=== PATIENT | female | born 2000 | race Caucasian/White ===

== ENCOUNTER 2023-08-25 19:10 | Outpatient (OUT) | payer OTHER, SELFPAY ==
[2023-08-31 11:09] LABS: Age Gdln ACOG Testing Note (.); IGP, rfx Aptima HPV ASCU Note (.)
== END 2023-08-25 19:11 | disposition home or self-care (01) ==
PROVIDERS: Visit Provider Obstetrics & Gynecology
DX: Z01.419 Encounter for gynecological examination (general) (routine) without abnormal findings (principal)
CPT/HCPCS: G0145

== ENCOUNTER 2024-08-29 18:22 | Outpatient (REF) | payer OTHER, SELFPAY | END 2024-08-29 18:23 | disposition home or self-care (01) | LOC: LAB 18:22 | PROVIDERS: Visit Provider Obstetrics & Gynecology | DX: Z01.419 Encounter for gynecological examination (general) (routine) without abnormal findings (principal) | CPT/HCPCS: 88175 ==

== ENCOUNTER 2024-12-10 10:01 | Outpatient (OUT) | payer OTHER, SELFPAY ==
--- OUTSIDE RECORDS SUMMARY | 2023-10-12 11:30 | XMS_ITS ---
Author Organization The [facility] in [place] Address [address] [place] [address] Care Team Providers Care Scenic Artist Name Role Phone Len Jin Primary Care Provider ZACH JIN Unavailable [phone] REASON FOR VISIT ingrown armpit hair Encounters Encounter Location Date Provider Diagnosis [facility] [address] [facility] [place] [address] 10/12/2023 ZACH JIN Plan Of Treatment No Information Progress Notes * Jessica ORDAZ CDOB:2000 (24 yo F)Acc No.[id number]:10/12/2023 UNLOCKED PROGRESS NOTE Progress Note Patient: Jessica QUIÑONES Provider: Miles Jin M.D. :2000 A ge:23 Y S ex:Female Date:10/12/2023 Address:[address] [place] [address] [address] Pcp:Len Jin Subjective: * Chief Complaints: * 1 . Ingrown armpit hair. * Medical History: Objective: * Vitals: Assessment: Plan: * Treatment: * * Electronic signature of LEN JIN MD on 12/10/2024 at 10:06 AM EDT Sign off status: Pending Visit Status: C ANC (Cancelled) * Provider: Miles Jin M.D. Date: 0 10/12/2023 Generated for Shania perez/Ephraim/Lucysmitting on: 0 12/10/2024 10:06 AM EDT
--- OUTSIDE RECORDS SUMMARY | 2024-03-23 11:00 | XMS_ITS ---
Author Organization The [facility] in [place] Address [address] [place] [address] Care Team Providers Care Septic Tank Cleaner Name Role Phone Markel Harman Primary Care Provider Allergies No Known Allergies REASON FOR VISIT stomach bug- started thursday with diarrhea and vomiting, Better today just nausea and diarrhea Medications Medication SIG (Take, Route, Frequency, Duration) Notes Start Date End Date Status Hyoscyamine Sulfate 0.125 MG 1-2 tabs SL SL every 4 hrs PRN abd pain 03/23/2024 Active Ondansetron 4 MG 1 tablet on the tong ue and allow to dissolve Orally Once a day for 30 days 03/23/2024 Active Social History Tobacco Use: Social History Observation Description Date Details (start date - stop date) Never Smoker NA - NA Tobacco Control (Standard) Question Answer Notes Tobacco use: Nonsmoker AUDIT-C (Standard) Question Answer Notes Did you have a drink contain ing alcohol in the past year? Yes How often did you have six o r more drinks on one occasion in the past year? Less than monthly (1 point) How many drinks did you have on a typical day when you were drinking in the past year? 1 or 2 drinks (0 point) How often did you have a dri nk containing alcohol in the past year? Monthly or less (1 point) Points 2 Interpretation Negative Problems Problem Type SNOMED Code ICD Code Onset Dates Problem Status W/U Status Risk Notes Problem Gastroenteritis (96459649) Gastroenteritis (K52.9) Active confirmed Vital Signs Weight 122.4 lbs 03/23/2024 Height 65 in 03/23/2024 Blood pressure systolic 106 mm Hg 03/23/20 24 Blood pressure diastolic 80 mm Hg 024 BMI 20.37 kg/m2 03/23/2024 Encounters Encounter Location Date Provider Diagnosis [facility] [address] [place] [address] 03/23/2024 Markel Harman Gastroenteritis K52. 9 Assessments Encounter Date Diagnosis (ICD Code) Assessment Notes Treatment Notes Treatment Clinical Notes Section Notes 03/23/2024 Gastroenteritis (ICD-10 - K52.9) Plan Of Treatment Medication Medication Name Sig Start Date Stop Date Notes Hyoscyamine Sulfate 0.125 MG 1-2 tabs SL SL every 4 hrs PRN abd pain 03/23/2024 Ondansetron 4 MG 1 tablet on the tong ue and allow to dissolve Orally Once a day for 30 days 03/23/2024 Progress Notes * SUSHMAJessica CDOB:2000 (23 yo F)Acc No.[id number]:03/23/2024 Progress Note Patient: Jessica QUIÑONES Provider: Miles Harman ([facility])MD :2000 A ge:23 Y S ex:Female Date:03/23/2024 Address:[facility] [address], [place], [id number] Check In:02:56 PM ESTCheck O ut:03:32 PM EST Subjective: * Chief Complaints: * 1 . Stomach bug- started thursday with diarrhea and vomiting. 2. Better today just nausea and diarrhea. * HPI: D epression Screening: PHQ-2 (2015 Edition) L ittle interest or pleasure in doing things?�Not at all F eeling down, depressed, or hopeless? N ot at all T otal Score 0 3 days - gettis some worse - watery diarrhea -. * ROS: E ENT: hearing changes d enies. v isual changes d enies.�non-healing mouth sores d enies. s wollen glands or neck lumps d enies. h oarseness d enies. s ore throat d enies. d ifficulty swallowing d enies. n ose bleeds d enies. n hortencia congestion d enies. e ar ache d enies. e ar discharge�denies. r inging in ears d enies. l ight sensitivity d enies. e ye pain d enies. b lurring d enies. e ye irritation d enies. d ouble vision d enies.�vision loss d enies. G eneral/Constitutional: Sweats: D enies. F atigue d enies. S leep problems d enies. A norexia d enies. M alaise d enies. W eight loss d enies.�Fatigue or Weakness d enies. F ever or Chills d enies. C ardiovascular: Shortness of Breath w/lying flat d enies. L ightheadedness/dizziness d enies. C hest tightness/ heavy pressure d enies. S welling of legs, ankles, or feet d enies. W aking up with shortness of breath d enies. C hest pain denies. P alpitations d enies. W eight gain d enies. R espiratory: Chronic or frequent cough d enies. C oughing up blood�denies. D ifficulty breathing d enies. P roductive cough d enies. S noring�denies. S hortness of breath that awakens from sleep (PND) d enies. C hest pain d enies. S putum production d enies. W heezing d enies. M usculoskeletal: Joint pain d enies. J oint Fluid d enies. B ack pain d enies. K nee pain d enies. N bienvenido pain d enies. J oint Stiffness d enies. M uscle cramps d enies. W eakness of muscles d enies. A rthritis d enies. M uscle aches d enies. P ain in shoulder(s) d enies. S wollen joints d enies. * Active Problem List K52.9 Gastroenteritis Modified On:03/23/2024W/U Status:confirmed * Medical History: M edical History Verified. * Surgical History: D enies Past Surgical History. * Hospitalization/Major Diagno stic Procedure: D enies Past Hospitalization. * Family History: F ather: alive, kidney stones, diagnosed with Diabetes mellitus without mention of complication, type II or unspecified type, not stated as uncontrolled. M other: alive. B rother(s): alive. 1 brother(s) - healthy. . * Social History: T obacco Use: T obacco Control (Standard) T obacco use: N onsmoker D rug/Alcohol: A HARRIET-C (Standard) D id you have a drink containing alcohol in the past year? Y es H ow often did you have six or more drinks on one occasion in the past year? L ess than monthly (1 point) H ow many drinks did you have on a typical day when you were drinking in the past year? 1 or 2 drinks (0 point) H ow often did you have a drink containing alcohol in the past year? M onthly or less (1 point) P oints 2 I nterpretation N egative * Medications: D iscontinued Cipro(Ciprofloxacin HCl) 500 MG Tablet 1 tablet Orally every 12 hrs , Discontinued Doxycycline Monohydrate 100 MG Capsule 1 capsule Orally BID , Medication List reviewed and reconciled with the patient * Allergies: N .K.D.A. Objective: * Vitals: W t:122.4lbs, Ht: 65 in, BP:106/80mm Hg, BMI:20.37Index, Ht-cm: 165.1 cm, Wt-k.52 kg. * Examination: P hysical Exam: GENERAL: w ell developed, well nourished, in no acute distress. HEAD: n ormocephalic/atraumatic. EYES: p upils equal, round and reactive to light, conjunctivae and sclerae normal. EARS: n o deformity or lesion of external ear, canals and TM appear normal bilaterally, TM's intact, not inflamed with normal light reflex, hearing grossly normal to conversational speech. NOSE: n o deformity, discharge, inflammation, or lesions.� MOUTH: m ucous membranes moist, normal oropharynx and posterior pharynx without lesions or exudates, tongue normal, dentition normal. NECK: n bienvenido supple, no masses or palpable cervical nodes, trachea midline, thyroid without nodules, masses, tenderness, or enlargement. CHEST: n o chest wall deformity, no chest wall tenderness.� LUNGS: n ormal respiratory effort and clear to auscultation, no wheezes, rales, or rhonchi, good air exchange. CARDIO: r egular rate and rhythm, normal S1 and S2, nor murmur, rub, or gallop. PULSES: n ormal capillary refill. ABDOMEN: s oft, non-distended, non-tender, no masses. MUSCULOSKELETAL: n o deformity or scoliosis noted, normal range of motion, joints normal, no erythema, edema, effusion, or ecchymosis. EXTREMITY: n o clubbing, cyanosis, edema, or deformity with normal ROM in both upper and lower bilateral extremities. NEUROLOGIC: g rossly normal. SKIN: n o rashes, ulcerations, or suspicious lesions. LYMPH NODES: n o cervical adenopathy, nodes normal. MENTAL STATUS: a lert and oriented x3, normal mood and affect. Assessment: * Assessment: 1Rancho parkoenteritis - K52.9 (Primary) Plan: * Treatment: * * Sign off status: Completed Visit Status: C HK (Check Out) true * Provider: Miles Harman (TTC)MD Date: 1 Generated for Printi ng/Fayoditg/eTransmitting on: 0 12/10/2024 10:06 AM EDT History and Physical Notes * HPI (History of Present Illness) Category Sub-Category Detail Notes Category Not es Depression Screening PHQ-2 (2015 Edition) Little interest or pleasure in doing things?: Not at all 3 days - gettis some worse - watery diarrhea - Feeling down, depressed, or hopeless?: N ot at all Total Score: 0 Examination Category Sub-Category Detail Notes Category Not es Physical Exam GENERAL: well developed, well nourished, in no acute distress HEAD: normocephalic/atraum atic EYES: pupils equal, round and reactive to light, conjunctivae and sclerae normal EARS: no deformity or lesi on of external ear, canals and TM appear normal bilaterally, TM's intact, not inflamed with normal light reflex, hearing grossly normal to conversational speech NOSE: no deformity, discha rge, inflammation, or lesions MOUTH: mucous membranes altagracia st, normal oropharynx and posterior pharynx without lesions or exudates, tongue normal, dentition normal NECK: neck supple, no mass es or palpable cervical nodes, trachea midline, thyroid without nodules, masses, tenderness, or enlargement CHEST: no chest wall deform ity, no chest wall tenderness LUNGS: normal respiratory e ffort and clear to auscultation, no wheezes, rales, or rhonchi, good air exchange CARDIO: regular rate and rhy thm, normal S1 and S2, nor murmur, rub, or gallop PULSES: normal capillary ref ill ABDOMEN: soft, non-distended, non-tender, no masses RECTAL: MUSCULOSKELETAL: no deformity or scol iosis noted, normal range of motion, joints normal, no erythema, edema, effusion, or ecchymosis EXTREMITY: no clubbing, cyanosi s, edema, or deformity with normal ROM in both upper and lower bilateral extremities NEUROLOGIC: grossly normal SKIN: no rashes, ulceratio ns, or suspicious lesions LYMPH NODES: no cervical adenopat hy, nodes normal MENTAL STATUS: alert and oriented x 3, normal mood and affect
--- OUTSIDE RECORDS SUMMARY | 2024-09-23 04:07 | XMS_ITS ---
Author Organization The [facility] in [place] Address [address] [place] [address] Care Team Providers Care Court Supervisor Name Role Phone Markel Harman Primary Care Provider REASON FOR VISIT infected finger Medications Medication SIG (Take, Route, Frequency, Duration) Notes Start Date End Date Status Doxycycline Monohydrate 100 MG 1 capsule Orally bid for 10 days 09/23/2024 Active Cefdinir 300 MG 2 capsule Orally onc e a day for 10 days 09/23/2024 Active Encounters Encounter Location Date Provider Diagnosis [facility] [address] [place] [address] 09/23/2024 Markel Harman Plan Of Treatment Medication Medication Name Sig Start Date Stop Date Notes Doxycycline Monohydrate 100 MG 1 capsule Orally bid for 10 days 09/23/2024 Cefdinir 300 MG 2 capsule Orally onc e a day for 10 days 09/23/2024 Progress Notes * Jessica ORDAZ CDOB:2000 (23 yo F)Acc No.[id number]:09/23/2024 Patient: Brendon STROUDJessica :2000 A ge:23 Y S ex:Female Address:[address], [place] [address] * Refills Start Cefdinir Capsule, 300 MG, Orally, 20 Capsule, 2 capsule, once a day, 10 days, Refills=0 Start Doxycycline Monohydrate Capsule, 100 MG, Orally, 20 Capsule, 1 capsule, bid, 10 days, Refills=0 * true * Date: Generated for Shania perez/Ephraim/Nydiaitting on: 0 12/10/2024 10:07 AM EDT
--- OUTSIDE RECORDS SUMMARY | 2024-12-10 10:06 | XMS_ITS | Patient Health Record ---
Author Organization The [facility] in [place] Address [address] [place] [address] Care Team Providers Care Gas Reverser Name Role Phone Markel Harman Primary Care Provider [phone] Allergies No Known Allergies Reason For Referral No Information Medications Medication SIG (Take, Route, Frequency, Duration) Notes Start Date End Date Status Doxycycline Monohydrate 100 MG 1 capsule Orally bid for 10 days 09/23/2024 Active Cefdinir 300 MG 2 capsule Orally onc e a day for 10 days 09/23/2024 Active Hyoscyamine Sulfate 0.125 MG 1-2 tabs SL [...] Status W/U Status Risk Notes Problem Gastroenteritis (04262095) Gastroenteritis (K52.9) Active confirmed Vital Signs Blood pressure diastolic 80 mm Hg 03/23/2024 Height 65 in 03/23/2024 Blood pressure systolic 106 mm Hg 03/23/2024 Weight 122.4 lbs 03/23/2024 BMI 20.37 kg/m2 03/23/2024 Encounters Encounter Location Date Provider Diagnosis [facility] [address] [place] [address] 09/23/2024 Markel Harman [facility] [address] [place] [address] 03/23/2024 Markel Harman Gastroenteritis K52. 9 Assessments Encounter Date Diagnosis (ICD Code) Assessment Notes Treatment Notes Treatment Clinical Notes Section Notes 03/23/2024 Gastroenteritis (ICD-10 - K52.9) Plan Of Treatment No Information Insurance Providers Payer Name Payer Address Payer Phone Subscriber Number Group Number Insured Name Patient Relationship to Insured Coverage Start Date Coverage End Date MMO [address] [place], [place] [id number] Jessica Wilson Self - patient is the insured
--- OUTSIDE RECORDS SUMMARY | 2024-12-10 10:07 | XMS_ITS | Encounter Summary ---
Author Organization [facility] Address [address] [place] [address] Care Team Providers Care Cancer Program Director Name Role Phone Murphy Harman MD Primary Care Provider [phone] Encounter Details Date Type Department Care Team (Late st Contact Info) Description 09/06/2024 Orders Only [facility] [address] [place] [address] [facility] [address] [place] [address] Social History Tobacco Use Types Packs/Day Years Used Date Smoking Tobacco: Never Alcohol Use Standard Drinks/Week Comments Yes 0 (1 standard drink = 0.6 oz pur e alcohol) Comments No Sex and Gender Information Value Date Recorded Sex Assigned at Female 08/18/2023 8:42 AM EDT Legal Sex Female 7:31 PM EDT Gender Identity Female 08/18/2023 8:42 AM EDT Sexual Orientation Straight 08/18/2023 8: 42 AM EDT documented as of this encounter Plan of Treatment Upcoming Encounters Date Type Department Care Team (Late Contact Info) Description 12/20/2024 9:10 AM EDT Routine [facility] [address] [place] [id number] Garcia Rose DO [address] [place], [place] [address] [place] [address] 09/05/2025 8:30 AM EDT Office Visit [facility] [address] [place] [address] Garcia Rose DO [address] [place], [place] [id number] documented as of this encounter Procedures Procedure Name Priority Date/Time Associated Diagnosis Comments PAP SMEAR Routine 08/29/2024 12:00 AM EDT documented in this encounter Results * Pap Smear (08/29/2024 12:00 AM EDT) Swab Cervical swab / Unknown us Garcia Rose DO LAB CYTOLOGY ORDERABLES Final Re sult EXTERNAL LAB documented in this encounter Visit Diagnoses Not on filedocumented in this encounter Care Teams Cancer Program Director Relationship Specialty Start Date End Date Murphy Harman MD [address] [facility] [place] [address] PCP - General Family Medicine 08/25/23 documented as of this encounter
--- OUTSIDE RECORDS SUMMARY | 2024-12-10 10:07 | XMS_ITS | CCD ---
Author Organization [facility] Care Team Providers Care Health And Wellness Director Name Role Phone DR MARIELLA CORTES Admitting Unavailable DR MARIELLA CORTES Attending Unavailable JO-ANN WILSON Primary Care Unavailable MILTON Vickers, DR WOLFF Consulting Unavailable Murphy Harman MD Primary Care Provider [phone] Murphy Harman MD Primary Care Provider [phone] MARIELLA ROSE Attending Unavailable Allergies Allergy Classification Reported Allergen(s) Allergy Type Date of Onset Reaction(s) Facility (1 source) ceftibuten Drug Allergy 08-21-2016 [facility] Medications Current Medications Medication Drug Class(es) Dates Sig (Normalized) Sig (Original) Multiple Vitamin (multivitamin) tablet (2 sources) take 1 tablet by mouth once daily Multiple Vitamin (multivitamin) tablet Take 1 tablet by mouth Daily Active Norgestimate-Ethinyl Estradiol (1 source) Start: 10-05-2023 take 1 tablet by mouth once daily Norgestimate-Ethinyl Estradiol Active 1 TAB PO Daily October 05, 2023 12:00am ondansetron 4 mg disintegrating oral tablet (1 source) Serotonin-3 Receptor Antagonist Start: 11-07-2024 End: 12-07-2024 take 1 tablet by mouth every six hours as needed for nausea and vomiting and nausea and nausea ondansetron ODT (Zofran-ODT) 4 MG disintegrating tablet Indications: Nausea Take 1 tablet (4 mg) by mouth every 6 (six) hours if needed for nausea or vomiting 30 tablet 2 11/07/2024 12/07/2024 Active Completed/Discontinued Medications Medication Drug Class(es) Dates Sig (Normalized) Sig (Original) Control (1 source) Start: 12-06-2020 End: 10-05-2023 Control Discontinued December 06, 2020 12:00am October 05, 2023 10:54am Problems Problem Classification Problem Date Documented Date Episodic/Chronic Immunizations and screening for infectious disease (1 source) Encounter for screening for human papillomavirus (HPV); Translations: [ENC SCREENING HUMAN PAPILLOMAVIRUS] Onset: 08-29-2022 Episodic Menstrual disorders (2 sources) Amenorrhea; Translations: [Amenorrhea, unspecified] 11-18-2024 Chronic Other endocrine disorders (1 source) Hypoglycemia; Translations: [Hypoglycemia, unspecified] 05-20-2023 Chronic Other and delivery including normal (2 sources) ; Translations: [Encounter for supervision of normal , unspecified, unspecified trimester] 11-18-2024 Episodic Other screening for suspected conditions (not mental disorders or infectious disease) (4 sources) Encounter for screening for malignant neoplasm of cervix; Translations: [ENC SCREENING MALIG NEOPLASM CERV] Onset: 08-21-2022 Episodic Syncope (1 source) Vasovagal syncope; Translations: [Syncope and collapse] 05-20-2023 Episodic Results Test Name Value Interpretation Reference Range Facility HCG ( test) Ql (U)o n 11-18-2024 Interpretation and review of laboratory results Normal [facility] Preg Test, Ur Positive Negative [facility] US OB TRANSVAGINALon 025 US OB TRANSVAGINAL EXAM: US OB TRANSVAGINAL HISTORY: Dating. COMPARISON: None available. TECHNIQUE: Two-dimensional transvaginal grayscale ultrasound imaging of the pelvis was performed. Color Doppler evaluation of the ovaries was also performed. FINDINGS: The uterus demonstrates a normal homogeneous echotexture. The cervix measures 3.7 cm in length. The right ovary measures 3.5 x 2.3 x 3.3 cm and demonstrates a normal echotexture. There is normal color Doppler flow. The left ovary measures 2.8 x 1.8 x 1.9 cm and demonstrates a normal echotexture. There is normal color Doppler flow. No fluid is present within the cul-de-sac. There is a single, live intrauterine gestation identified with a heart rate of 186 beats per minute and a crown-rump length measurement of 2.2 cm, correlating to a gestational age of 8 weeks 6 days (+/- 6 days). There is no subchorionic hemorrhage visualized. A yolk sac is visualized. IMPRESSION: 1. Single, live intrauterine gestation 8 weeks, 5 days by LMP. Today's ultrasound measurements correlate with a gestational age of 8 weeks 6 days (+/- 6 days). NADEEN by today's ultrasound is 06/24/2025. 2. Normal color Doppler evaluation of the bilateral ovaries. Interpreted by: Electronically signed by TENA POWELL II, MD, PHD at 19-Nov-2024 08:41:19 AM [facility] Normal Not Available Comment on above: Order Comment: US OB TRANSVAGINAL No LMP recorded. Urinalysis macro (dipstick) panel (U)on 11-18-2024 Bilirubin, UA Negative Negative - 4(70) +++ mg/dL [facility] Blood, UA Positive Negative - 50 Ankit/mcL [facility] Comment on above: trace Clarity, UA Clear [facility] [employer] re Color, UA Yellow [facility] [employer] e Glucose, UA Negative Negative - 1999(110) ++++ mg/dL [facility] Interpretation and review of laboratory results Normal [facility] Ketones, UA Negative Negative - 160(16) ++++ mg/dL [facility] Leukocytes, UA Negative Negative - 500+++ Guy/mcL [facility] Nitrite, UA Negative Negative - Positive [facility] pH, UA 7 5 - 9 [facility] [employer] Protein, UA Negative Negative - 1999(20) ++++ mg/dL [facility] Spec Grav, UA 1.01 1 - 1.03 [facility] Urobilinogen, UA 0.2 0.2 - 12 mg/dL [facility] IGP,APTIMA HPV,AGE GDLNon AGE GDLN ACOG TESTING Note . [facility] Comment on above: TESTS RESULT FLAG UN ITS REF RANGE LAB Clinician Provided Cytology Information Source.............Cervix;Endocervix No. of containers..01 ThinPrep Vial Age Algo ACOG Lulu... -06 07 FLAG LEGEND: L-Low Normal,H-High Normal,LL-Alert Low,HH-Alert High <-Panic Low,>-Panic High,A-Abnormal,AA-Critical Abnormal Performed at: 01 =[address] [address] Karolyn Mcallister MD, IGP, RFX APTIMA HPV ASCU Note . [facility] Comment on above: TESTS RESULT FLAG UN ITS REF RANGE LAB DIAGNOSIS: 02 NEGATIVE FOR INTRAEPITHELIAL LESION OR MALIGNANCY. Specimen adequacy: 02 Satisfactory for evaluation. Endocervical and/or squamous metaplastic cells (endocervical component) are present. Performed by: Eloise Ann, [employer] Control Electronics Operator (ASC) . 02 Note: Note 02 The Pap smear is a screening test designed to aid in the detection of premalignant and malignant conditions of the uterine cervix. It is not a diagnostic procedure and should not be used as the sole means of detecting cervical cancer. Both false-positive and false-negative reports do occur. Test Methodology: Note 02 This liquid based ThinPrep(R) pap test was screened with the use of an image guided system. . 02 The HPV DNA reflex criteria were not met with this specimen result therefore, no HPV testing was performed. FLAG LEGEND: L-Low Normal,H-High Normal,LL-Alert Low,HH-Alert High <-Panic Low,>-Panic High,A-Abnormal,AA-Critical Abnormal Performed at: [address] [facility] [address] [id number] Karolyn Mcallister MD, Performed at: =G - [facility] [address] [id number] Plumbing Assembler: Karolyn Mcallister MD, Phone: [phone] Performed at: - [facility] [id number] Plumbing Assembler: Karolyn Mcallister MD, Phone: [phone] BRUSH-SPATULA CERVIX ENDOCERVIX [facility] Healthcar e PAP ACOG PANEL 2: 21 to 29on 08-29-2022 . . Normal [facility] Comment on above: Performed By: #### [id number] #### [facility] [address] [place] [address] Dr. Mariama Leger Age Gdln ACOG Testing 21-29 [facility] Comment on above: Performed By: #### [id number] #### [facility] [address] [place] [address] Dr. Mariama Leger DIAGNOSIS: Comment [facility] Comment on above: Result Comment: NEGA TIVE FOR INTRAEPITHELIAL LESION OR MALIGNANCY. Performed By: #### 4 [id number] #### [facility] [address] [place] [address] Dr. Mariama Leger Methodology: Comment [facility] Comment on above: Result Comment: This liquid based ThinPrep(R) pap test was screened with the use of an image guided system. Performed By: #### 4 [id number] #### [facility] [address] [place] [address] Dr. Mariama Leger Note: Comment Normal [facility] Comment on above: Result Comment: The Pap smear is a screening test designed to aid in the detection of premalignant and malignant conditions of the uterine cervix. It is not a diagnostic procedure and should not be used as the sole means of detecting cervical cancer. Both false-positive and false-negative reports do occur. . Performed By: #### 4 [id number] #### [facility] [address] [place] [address] Dr. Mariama Leger Performed by: Comment Normal [facility] Comment on above: Result Comment: Patricia Rogel Air Control Electronics Operator (ASCP) Performed By: #### 4 [id number] #### [facility] [address] [place] [address] Dr. Mariama Leger Reflex Criteria: Comment Normal [facility] Comment on above: Result Comment: The HPV DNA reflex criteria were not met with this specimen result therefore, no HPV testing was performed. . Performed By: #### 4 [id number] #### [facility] [address] [place] [address] Dr. Mariama Leger Specimen adequacy: Comment Normal [facility] Comment on above: Result Comment: Sati sfactory for evaluation. Endocervical and/or squamous metaplastic cells (endocervical component) are present. Performed By: #### 4 [id number] #### [facility] [address] [place] [address] Dr. Mariama Leger ECG 12 lead ECGon 12-06-2020 ECG 12 lead ECG [facility] [address] [place] [address] Electrocardiograph Report Signed Patient: Jessica Valle MR#: [id number] 36 : 2000 Acct:[id number] Age/Sex: 20 / F ADM Date: 12/06/20 Loc: ER Room: Type: [facility] ER Attending Dr: Ordering Provider: Nabil Richard DO Date of Service: 12/06/20 ECG/ECG 12 lead ECG: Syncope Copies to: Test Reason : Blood Pressure : 135/090 mmHG Vent. Rate : 072 BPM Atrial Rate : 072 BPM P-R Int : 130 ms QRS Dur : 082 ms QT Int : 382 ms P-R-T Axes : 046 086 068 degrees QTc Int : 418 ms Normal sinus rhythm Normal ECG No previous ECGs available Confirmed by YVONNE BYRD DO ([id number]) on 12/08/2020 9:46:08 AM Referred By: Electronically Signed By:YVONNE BYRD DO Transcribed By: MUS Dictated By: Yvonne Byrd DO 12/06/20 1748 Signed By: 12/08/20 0946 Normal [facility] Glucose Poct Glucometerson 0 12-06-2020 Glucose [Mass/Vol] 113 mg/dL Normal [facility] Comment on above: Result Comment: [facility] Glucose Reference Range is dependent on time and content of last meal. Glucose of more than 200 mg/dL in a nonstressed, ambulatory subject supports the diagnosis of Diabetes Mellitus. PERFORMED BY: [place] [address] PATHOLOGIST CLASP MACHINE OPERATOR ALISIA DIAL M.D. Performed By: #### G LULS #### Point of Care testing , Glucose [Mass/Vol] 65 mg/dL Normal [facility] Comment on above: Result Comment: [facility] Glucose Reference Range is dependent on time and content of last meal. Glucose of more than 200 mg/dL in a nonstressed, ambulatory subject supports the diagnosis of Diabetes Mellitus. PERFORMED BY: [place] [address] PATHOLOGIST CLASP MACHINE OPERATOR ALISIA DIAL M.D. Performed By: #### G LULS #### Point of Care testing , HCG,Urineon 12-06-2020 Beta HCG ( test) Ql (U) Negative Normal [facility] Comment on above: Result Comment: PERF ORMED BY: [place] [id number] PATHOLOGIST CLASP MACHINE OPERATOR ALISIA DIAL M.D. Performed By: #### U HCG #### [place] [id number] [facility] Vital Signs Date Time Vital Sign Value Performing Clinician Facility 11-18-2024 11:00-0400 Body mass index (BMI) [Ratio] 19.46 kg/m2 [facility] 11-18-2024 11:00-0400 Body weight 58.06 kg [facility] 11-18-2024 11:00-0400 Diastolic blood pressure 72 mm[Hg] [facility] 11-18-2024 11:00-0400 Systolic blood pressure 118 mm[Hg] [facility] 10-05-2023 10:53-0400 Body height 172.72 cm [facility] 10-05-2023 10:53-0400 Body mass index (BMI) [Ratio] 19.2 kg/m2 [facility] 10-05-2023 10:53-0400 Body temperature 100.1 [degF] [facility] 10-05-2023 10:53-0400 Body weight 57.32 kg [facility] 10-05-2023 10:53-0400 Heart rate 98 /min [facility] 10-05-2023 10:53-0400 Respiratory rate 18 /min [facility] 10-05-2023 10:53-0400 SaO2% (BldA) [Mass fraction] 98 % [facility] Encounters Encounter Date Encounter Type Care Provider Facility Start: 11-18-2024 End: 11-18-2024 Office outpatient visit 5 minutes [facility] Comment on above: GA: 8w5d Start: 11-18-2024 End: 11-18-2024 ambulatory MARIELLA MILTON Not Available Start: 08-29-2024 End: 09-01-2024 [facility] Result Encounter Mariella Milton DO Work Phone: [facility] Unsolicited Start: 08-29-2024 End: 09-01-2024 [facility] Result Encounter Mariella Milton DO Work Phone: [facility] Unsolicited Start: 08-29-2024 End: 08-29-2024 ambulatory MARIELLA MILTON Not Available Start: 10-05-2023 End: 10-05-2023 ambulatory [facility] Work Phone: Start: 10-05-2023 End: 10-05-2023 Patient encounter procedure [facility] Work Phone: Start: 08-21-2022 End: 08-21-[address] MARIELLA ROSE . Facility: Procedures Date Procedure Procedure Detail Performing Clinician Start: 11-18-2024 End: 11-18-2024 Urnls dip stick/tablet rgnt non-auto w/o micrscp Mariella Rose DO Work Phone: Start: 08-29-2024 IGP,APTIMA HPV,AGE GDLN Mariella Rose DO Work Phone: Plan of Treatment Date Care Activity Detail Author Start: 09-05-2025 End: 09-05-2025 Patient encounter procedure 09/05/2025 8:30 AM EDT Office Visit [facility] [address] [place] [id number] Mariella Rose, [address] [place] [address] [facility] Start: 12-20-2024 End: 12-20-2024 Patient encounter procedure 12/20/2024 9:10 AM EDT Routine [facility] [address] [place] [address] Mariella Rose DO [address] [place] [address] [facility] Start: 11-18-2024 End: 11-18-2025 ABO/Rh ABO/Rh Lab Routine Missed menses , unspecified gestational age ([facility]) Expected: 11/18/2024 (Approximate), Expires: 11/18/2025 [facility] Comment on above: Expected: 11/18/2024 (Approximate), Expires: 11/18/2025 Start: 11-18-2024 End: 06-13-2026 Blood type and Indirect antibody screen panel - Blood Type and screen Lab Routine Missed menses , unspecified gestational age ([facility]) Expected: 11/18/2024 (Approximate), Expires: 11/18/2025 [facility] Work Phone: Comment on above: Expected: 11/18/2024 (Approximate), Expires: 11/18/2025 Start: 11-18-2024 End: 11-18-2025 Drugs of abuse panel - Urine by Screen method Rapid drug screen, urine Lab Routine , unspecified gestational age ([facility]) Encounter for supervision of normal first in first trimester ([facility]) Expected: 11/18/2024 (Approximate), Expires: 11/18/2025 [facility] Comment on above: Expected: 11/18/2024 (Approximate), Expires: 11/18/2025 Bacteria identified in Urine by Culture Urine culture Microbiology Routine Missed menses Ordered: 11/18/2024 [facility] Comment on above: Ordered: 11/18/2024 CBC W Auto Different ial panel - Blood CBC and differential Lab Routine Missed menses , unspecified gestational age ([facility]) Ordered: 11/18/2024 [facility] Comment on above: Ordered: 11/18/2024 Hemoglobin A1c/Hemoglobin.total in Blood Hemoglobin A1c Lab Routine Missed menses , unspecified gestational age ([facility]) Ordered: 11/18/2024 [facility] Comment on above: Ordered: 11/18/2024 Hepatitis B virus surface Ag [Presence] in Serum or Plasma by Immunoassay Hepatitis B surface antigen Lab Routine Missed menses , unspecified gestational age ([facility]) Ordered: 11/18/2024 [facility] Comment on above: Ordered: 11/18/2024 Hepatitis C virus Ab [Presence] in Serum or Plasma by Immunoassay Hepatitis C antibody Lab Routine Missed menses , unspecified gestational age ([facility]) Ordered: 11/18/2024 [facility] Comment on above: Ordered: 11/18/2024 HIV-1/HIV-2 antigen/antibody combination immunoassay HIV-1 and HIV-2 antibodies Lab Routine Missed menses , unspecified gestational age ([facility]) Ordered: 11/18/2024 [facility] Comment on above: Ordered: 11/18/2024 Reagin Ab [Presence] in Serum by RPR RPR Lab Routine Missed menses , unspecified gestational age ([facility]) Ordered: 11/18/2024 [facility] Comment on above: Ordered: 11/18/2024 Rubella antibody, IgG Rubella an tibody, IgG Lab Routine Missed menses , unspecified gestational age ([facility]) Ordered: 11/18/2024 [facility] Comment on above: Ordered: 11/18/2024 Payers Date Payer Category Payer Private Health Insurance [facility] [id number] 2019 Private Health Insurance [id number] 2000 Unknown [id number] 2000 Unknown [id number] 1998 Unknown [id number] 2000 Unknown [id number] 1959 Unknown [id number] Self-pay Self Pay [id number] Social History Date Type Detail Facility Start: 08-04-2023 End: 10-05-2023 Tobacco smoking status NHIS Never smoked tobacco (finding) [facility] Start: 2000 Sex Assigned At Female [facility] Start: 08-29-2024 End: 11-18-2024 Alcoholic beverage intake Current drinker of alcohol (finding) [facility] Start: 08-29-2024 History of Social function [facility] Start: 08-29-2024 Tobacco use panel [facility] Start: 08-18-2023 Gender identity Identifies as female gender (finding) [facility] Start: 08-18-2023 Sexual orientation Heterosexual (finding) [facility] Start: 10-02-2024 [facility] History of Present illness Narrative 11-18-2024 Francywendy UrbanoHANANE - 11/18/2024 10:30 AM EDT Note Date & Type Note Facility 11-18-2024 History of Presen t illness Narrative Reason for Appointment: Patient ID: Jessica Wilsno is a 24 y.o. female who presents for Amenorrhea Patient presents today for a Nurse OB Intake appointment. Patient is 8w5d with a Estimated Date of Delivery: 06/25/25 OB History Para Term AB Living 1 SAB IAB Ectopic Multiple Live Births # Outcome Date GA Lbr Nikunj/2nd Weight Sex Type Anes PTL Lv 1 Current Current Medications: has a current medication list which includes the following prescription(s): multivitamin and ondansetron odt. Medical History: Active Ambulatory Problems Diagnosis Date Noted No Active Ambulatory Problems Resolved Ambulatory Problems Diagnosis Date Noted No Resolved Ambulatory Problems Past Medical History: Diagnosis Date Encounter for gynecological examination (general) (routine) without abnormal findings No family history on file. Social History Tobacco Use Smoking status: Never Smokeless tobacco: Not on file Substance Use Topics Alcohol use: Yes Drug use: Not on file History reviewed. No pertinent surgical history. No Known Allergies Vitals: Estimated body mass index is 19.46 kg/m as calculated from the following: Height as of 08/21/22: 5' 8 . Weight as of this encounter: 128 lb. BP: 118/72 Patient's last menstrual period was 09/18/2024. Assessment/Plan Diagnoses and all orders for this visit: Amenorrhea Missed menses - Type and screen; Future - ABO/Rh; Future - CBC and differential - Hemoglobin A1c - RPR - Rubella antibody, IgG - Hepatitis B surface antigen - Hepatitis C antibody - HIV-1 and HIV-2 antibodies - Urine culture - POCT , urine manually resulted - POCT urinalysis dipstick manually resulted , unspecified gestational age ([facility]) - Type and screen; Future - ABO/Rh; Future - CBC and differential - Hemoglobin A1c - RPR - Rubella antibody, IgG - Hepatitis B surface antigen - Hepatitis C antibody - HIV-1 and HIV-2 antibodies - Rapid drug screen, urine; Future Encounter for supervision of normal first in first trimester ([facility]) - Rapid drug screen, urine; Future Nurse Note: Patient unsure of [employer] to one. Pt will call insurance. Pt is aware to take both labs to [facility] to have done. Lab will not draw unless both Kenna and labs are together. PVU. OB Intake: Patient presents today for first OB visit. Patients history has been reviewed in great detail including any potential risks. Patient signed consent forms and patient desires testing in both trimesters. Patient currently has no complaints and has been advised to drink 6-8 glasses of water a day, eat no raw or undercooked meat, and stay away from [facility]. Patient has also been advised to not change litter boxes and eat 6 small meals a day. Patient has been consulted regarding the do's and don'ts of . Patient was given labs and all questions and concerns were answered. Follow Up: Patient is to return in 4 weeks for routine OB appointment. Follow Up: Patient is to have labs drawn at directed and return to office for initial OB appointment with provider. Patient may call office as needed with any concerns or questions. Nurse Visit Completed by: Francy Urbano MA documented in this encounter [facility] Evaluation note Note Date & Type Note Facility Evaluation note No assessment information availa [facility] Work Phone: Evaluation note Note Date & Type Note Facility Evaluation note Diagnosis Amenorrhea Absence of menstruation Missed menses , unspecified gestational age ([facility]) Encounter for supervision of normal first in first trimester ([facility]) documented in this encounter [facility] Summary Purpose Family History No Family History Records FoundNo Family History Records FoundNo Family History Records Found Advance Directives No Advanced Directives Records Found Advance Directive Response Recorded Date/ Time Advance Directives No December 06 6:38pm Chief Complaint and Reason for Visit Chief Complaint ingrown hair in left armpit Additional Source Comments INFORMATION SOURCE (unrecogn ized section and content) DATE CREATED AUTHOR 06/30/2021 [facility] DATE CREATED AUTHOR AUTHOR'S ORGANIZ ATION 08/30/2022 [facility] DATE CREATED AUTHOR AUTHOR'S ORGANIZ ATION 11/21/2024 [facility] EPIC Care Teams (unrecognized sec tion and content) Team Status: Active Member Role Status Dates Murphy Harman MD Primary Care Provider Active Team Status: Inactive Member Role Status Dates Murphy Harman MD Primary Care Provider Active Start: October 05, 2023 End: October 05, 2023 Nichole Freitas APRN Attending Provider Active Start: October 05, 2023 End: October 05, 2023 Health And Wellness Director Relationship Specialty Start Date End Date Murphy Harman MD [address] [place] [address] PCP - General Family Medicine 08/25/23 Health And Wellness Director Relationship Specialty Start Date End Date Murphy Harman MD [address] [place] [address] PCP - General Family Medicine 08/25/23 Goals (unrecognized section and content) Goals may be documented in a n alternate section Reason for Visit (unrecogniz ed section and content) Reason Comments Amenorrhea FOR RECORDS PERTAINING TO PATIENTS WHO ARE OR HAVE BEEN ENROLLED IN A CHEMICAL DEPENDENCY/SUBSTANCEABUSE PROGRAM, SOME INFORMATION MAY BE OMITTED. This clinical summary was aggregated from multiple sources. Caution should be exercised in using it in the provision of clinical care. This summary normalizes information from multiple sources, and as a consequence, information in this document may materially change the coding, format and clinical context of patient data. In addition, data may be omitted in some cases. CLINICAL DECISIONS SHOULD BE BASED ON THE PRIMARY CLINICAL RECORDS. [facility] [employer] [facility]. provides no warranty or guarantee of the accuracy or completeness of information in this document.
[2024-12-10 10:33] LABS: Hematocrit 36.6 % (36.0-48.0); Hemoglobin 12.7 g/dL (12.0-16.0); Immature Granulocytes Abs Auto 0.02 10^3/uL (0.00-0.03); Immature Granulocytes Pct Auto 0.3 % (0.0-0.5); Lymphocytes Absolute Auto 2.2 10^3/uL (1.2-3.8); Mean Corpuscular HGB Conc 34.7 g/dL (29.9-35.2); Mean Corpuscular Hemoglobin 30.6 pg (26.7-34.0); Mean Corpuscular Volume 88.2 fL (81.0-99.0); Platelet Count 344 10^3/uL (150-450); Red Blood Count 4.15 10^6/uL (4.20-5.40); White Blood Count 6.1 10^3/uL (4.0-11.0)
[2024-12-10 10:43] LABS: Cannabinoid Screen Urine NEGATIVE (NEGATIVE); Methamphetamines Screen Urine NEGATIVE (NEGATIVE); Tricyclic Antidepressant Urine NEGATIVE (NEGATIVE)
[2024-12-11 11:08] LABS: Rapid Plasma Reagin, Quant Non Reactive titer (NonRea<1:1)
[2024-12-11 12:07] LABS: Rubella Antibodies, IgG 0.91 index (Immune >0.99)
== END 2024-12-10 10:02 | disposition home or self-care (01) ==
PROVIDERS: PCP Family Medicine; Visit Provider Obstetrics & Gynecology
DX: Z34.01 Encounter for supervision of normal first pregnancy, first trimester (principal); N92.6 Irregular menstruation, unspecified
CPT/HCPCS: 36415; 80307; 83036; 85025; 86592; 86762; 86803; 86850; 86900; 86901; 87086; 87340; 87389

== ENCOUNTER 2025-03-21 12:08 | Outpatient (OUT) | payer OTHER, SELFPAY ==
--- OUTSIDE RECORDS SUMMARY | 2025-03-21 12:13 | XMS_ITS | CCD ---
Author Organization [facility] Care Team Providers Care [place] Straightener Name Role Phone MILTON ., DR WOLFF Admitting Unavailable MILTON ., DR WOLFF Attending Unavailable JO-ANN WILSON Primary Care Unavailable MILTON ., DR WOLFF Consulting Unavailable Murphy Harman MD Primary Care Provider [phone] Murphy Harman MD Primary Care Provider [phone] MARIELLA ROSE Attending Unavailable MARIELLA ROSE Attending Unavailable MARIELLA ROSE Attending Unavailable MARIELLA ROSE Referring Unavailable MARIELLA ROSE Attending Unavailable IDA BENÍTEZ Attending Unavailable Allergies Allergy Classification Reported Allergen(s) Allergy Type Date of Onset Reaction(s) Facility (1 source) ceftibuten Drug Allergy 08-21-2016 [facility] Repository Medications Current Medications Medication Drug Class(es) Dates Sig (Normalized) Sig (Original) calcitriol 0.78773 mg oral capsule (8 sources) Vitamin D3 Analog End: 02-14-2025 calcitriol (Rocaltrol) 0.25 MCG capsule 02/14/2025 Discontinued Norgestimate-Ethinyl Estradiol (1 source) Start: 10-05-2023 take [...] vomiting 30 tablet 2 11/07/2024 12/07/2024 Active MV-Min-Fe Fum-FA-DHA ( 1 PO) (11 sources) MV-Min- Fe Fum-FA-DHA ( 1 PO) Active Completed/Discontinued Medications Medication Drug Class(es) Dates Sig (Normalized) Sig (Original) Control (1 source) Start: 12-06-2020 End: 10-05-2023 Control Discontinued December 06, 2020 12:00am October 05, 2023 10:54am Multiple Vitamin (multivitamin) tablet (6 sources) End: 12-20-2024 take 1 tablet by mouth once daily Multiple Vitamin (multivitamin) tablet Take 1 tablet by mouth Daily 12/20/2024 Discontinued take 1 tablet by mouth once francisca y Multiple Vitamin (multivitamin) tablet Take 1 tablet by mouth Daily Active Problems Problem Classification Problem Date Documented Date Episodic/Chronic Immunizations and screening for infectious disease (1 source) Encounter for screening for human papillomavirus (HPV); Translations: [ENC SCREENING HUMAN PAPILLOMAVIRUS] Onset: 08-29-2022 Episodic Menstrual disorders (2 sources) Amenorrhea; Translations: [Amenorrhea, unspecified] 11-18-2024 Chronic Other endocrine disorders (1 source) Hypoglycemia; Translations: [Hypoglycemia, unspecified] 05-20-2023 Chronic Other and delivery including normal (10 sources) ; Translations: [Encounter for supervision of normal , unspecified, unspecified trimester] 11-18-2024 Episodic Other screening for suspected conditions (not mental disorders or infectious disease) (8 sources) Encounter for screening for malignant neoplasm of cervix; Translations: [Patient encounter status] Onset: 08-21-2022 Episodic Residual codes; unclassified (2 sources) Gestation period, 13 weeks; Translations: [13 weeks gestation of ] 12-20-2024 Episodic Residual codes; unclassified (2 sources) Gestation period, 17 weeks; Translations: [17 weeks gestation of ] 01-17-2025 Episodic Residual codes; unclassified (2 sources) Gestation period, 21 weeks; Translations: [21 weeks gestation of ] 02-14-2025 Episodic Residual codes; unclassified (2 sources) Gestation period, 25 weeks; Translations: [25 weeks gestation of ] 03-14-2025 Episodic Syncope (1 source) Vasovagal syncope; Translations: [Syncope and collapse] 05-20-2023 Episodic Results Test Name Value Interpretation Reference Range Facility Urinalysis macro (dipstick) panel (U)on 03-14-2025 Bilirubin, UA Negative Negative - 4(70) +++ mg/dL [facility] Blood, UA Negative Negative - 50 Ankit/mcL [facility] Clarity, UA Clear [facility] re Color, UA Yellow [facility] Glucose, UA Negative Negative - 1999(110) ++++ mg/dL [facility] Interpretation and review of laboratory results Normal [facility] Ketones, UA Negative Negative - 160(16) ++++ mg/dL [facility] Leukocytes, UA Negative Negative - 500+++ Guy/mcL [facility] Nitrite, UA Negative Negative - Positive [facility] pH, UA 6.5 5 - 9 [facility] Protein, UA Negative Negative - 1999(20) ++++ mg/dL [facility] Spec Grav, UA 1.005 1 - 1.03 [facility] Urobilinogen, UA 0.2 0.2 - 12 mg/dL [facility] e US OB 14+ WEEKS ANATOMY SCAN on 02-14-2025 US OB 14+ WEEKS ANATOMY SCAN FINDINGS: A single, live intrauterine is present with normal cardiac rate of 153 beats per minute. Normal activity and amniotic fluid volume. Amniotic Morphology is grossly normal. The placenta is anterior, inferior aspect 3.4 cm from the closed cervical os. 3.9 cm length. The current sonographic age is 21 weeks and 1 days, based on the following measurements: BPD 5.0 cm ( 21 weeks, 1 days) Head Circumference 18.3cm (20 weeks, 5 days) Abdominal Circumference 15.9cm (21 weeks, 0days) Femur Length 3.7cm ( 21 weeks, 6 days) Presentation Cephalic Placenta Anterior Weight (g) by Percentile 45.3% * These measurements result in an estimated date of delivery of June 26, 2025. The current estimated weight is 414 grams ( pound, 15 ounces). IMPRESSION: Single, live intrauterine , current sonographic age of 21 weeks and 1 days, with an estimated date of delivery of June 26, 2025 * Estimated Weight (g) by Percentile is based upon an accurate estimated age based on last menstrual period. TRANSCRIBED BY: ELECTRONICALLY SIGNED BY: Anish Pantoja MD Normal Not Available Comment on above: Order Comment: US OB ANATOMY SINGLE W US OB CERVICAL LENGTH Estimated Date of Delivery: 06/25/25 Gestational Age as of 01/17/2025: 17w2d Urinalysis macro (dipstick) panel (U)on 02-14-2025 Bilirubin, UA Negative Negative - 4(70) +++ mg/dL [facility] Blood, UA Negative Negative - 50 Ankit/mcL [facility] Clarity, UA Clear [facility] re Color, UA Yellow [facility] Healthcar e Glucose, UA Negative Negative - 1999(110) ++++ mg/dL [facility] Interpretation and review of laboratory results Normal [facility] Ketones, UA Negative Negative - 160(16) ++++ mg/dL [facility] Leukocytes, UA Negative Negative - 500+++ Guy/mcL [facility] Nitrite, UA Negative Negative - Positive [facility] pH, UA 6 5 - 9 [facility] Protein, UA Negative Negative - 1999(20) ++++ mg/dL [facility] Spec Grav, UA 1.01 1 - 1.03 [facility] Urobilinogen, UA 1.0 0.2 - 12 mg/dL [facility] RECURRENT VAGINITIS (HTRX)on 01-18-2025 ATOPOBIUM VAGINAE 0 [facility] ATOPOBIUM VAGINAE Not detected [facility] BVAB 2,3 (BACTERIAL VAGINOSIS ASSOCIATED BACTERIA 2, 3); MOBILUNCUS SPP 0 [facility] BVAB 2,3 (BACTERIAL VAGINOSIS ASSOCIATED BACTERIA 2, 3); MOBILUNCUS SPP Not detected [facility] LISA ALBICANS, PARAPSILOSIS, TROPICALIS 0 [facility] LISA ALBICANS, PARAPSILOSIS, TROPICALIS Not detected [facility] LISA GLABRATA [facility] LISA GLABRATA Not detected [facility] L[facility]I [facility]USEI Not detected [facility] CHLAMYDIA TRACHOMATIS 0 [facility] CHLAMYDIA TRACHOMATIS Not detected [facility] GARDNERELLA VAGINALIS 0 [facility] GARDNERELLA VAGINALIS Not detected [facility] MEGASPHAERA (TYPES 1, 2) 0 [facility] MEGASPHAERA (TYPES 1, 2) Not detected [facility] MYCOPLASMA GENITALIUM 0 [facility] MYCOPLASMA GENITALIUM Not detected [facility] NEISSERIA GONORRHOEAE 0 [facility] NEISSERIA GONORRHOEAE Not detected [facility] TRICHOMONAS VAGINALIS 0 [facility] TRICHOMONAS VAGINALIS Not detected [facility] Urinalysis macro (dipstick) panel (U)on 01-17-2025 Bilirubin, UA Negative Negative - 4(70) +++ mg/dL [facility] Blood, UA Negative Negative - 50 Ankit/mcL [facility] Healthcare Clarity, UA Clear [facility] re Color, UA Yellow [facility] Health[facility] e Glucose, UA Negative Negative - 1999(110) ++++ mg/dL [facility] Interpretation and review of laboratory results Abnormal [facility] Ketones, UA Negative Negative - 160(16) ++++ mg/dL [facility] Leukocytes, UA 2+ Negative - 500+++ Guy/mcL [facility] Healthcare Nitrite, UA Negative Negative - Positive [facility] pH, UA 6 5 - 9 [facility] Health[facility] e Protein, UA Negative Negative - 1999(20) ++++ mg/dL [facility] Spec Grav, UA 1.02 1 - 1.03 [facility] Urobilinogen, UA 0.2 0.2 - 12 mg/dL [facility] Urinalysis macro (dipstick) panel (U)on 12-20-2024 Bilirubin, UA Negative Negative - 4(70) +++ mg/dL [facility] Blood, UA Negative Negative - 50 Ankit/mcL [facility] Healthcare Clarity, UA Clear [facility] re Color, UA Yellow [facility] Health[facility] e Glucose, UA Negative Negative - 1999(110) ++++ mg/dL [facility] Interpretation and review of laboratory results Normal [facility] Ketones, UA Negative Negative - 160(16) ++++ mg/dL [facility] Leukocytes, UA Negative Negative - 500+++ Guy/mcL [facility] Healthcare Nitrite, UA Negative Negative - Positive [facility] pH, UA 6.5 5 - 9 [facility] Health[facility] e Protein, UA Negative Negative - 1999(20) ++++ mg/dL [facility] Spec Grav, UA 1.015 1 - 1.03 [facility] Urobilinogen, UA 0.2 0.2 - 12 mg/dL [facility] ALL CBC WITH AUTO DIFFon BASOPHILS ABSOLUTE AUTO 0 [facility] Basophils/100 WBC (Bld) 0.5 % 0.2 - 2.0 % [facility] Eosinophils/100 WBC (Bld) 1.1 % 0.9 - 7.0 % [facility] Erythrocyte distribution width (RBC) [Ratio] 12.7 % 11.0 - 15.0 % [facility] Hematocrit (Bld) [Volume fraction] 36.6 % 36.0 - 48.0 % [facility] Health[facility] e Hemoglobin (Bld) [Mass/Vol] 12.7 g/dL 12.0 - 16.0 g/dL [facility] IMMATURE GRANULOCYTES ABS AUTO 0.02 [facility] Immature granulocytes/100 WBC (Bld) 0.3 % 0.0 - 0.5 % [facility] Interpretation and review of laboratory results Abnormal [facility] LYMPHOCYTES ABSOLUTE AUTO 2.2 [facility] Lymphocytes/100 WBC (Bld) 35.3 % 20.5 - 60.0 % [facility] MCH (RBC) [Entitic mass] 30.6 pg 26.7 - 34.0 pg [facility] MCHC (RBC) [Mass/Vol] 34.7 g/dL 29.9 - 35.2 g/dL [facility] MCV (RBC) [Entitic vol] 88.2 fL 81.0 - 99.0 fL [facility] MONOCYTES ABSOLUTE AUTO 0.4 [facility] Monocytes/100 WBC (Bld) 6.9 % 1.7 - 12.0 % [facility] NEUTROPHILS ABSOLUTE AUTO 3.4 [facility] Neutrophils/100 WBC (Bld) 55.9 % 43.0 - 75.0 % [facility] Platelet mean volume (Bld) [Entitic vol] 8.8 fL Low 9.5 - 13.5 fL [facility] Healthc are TBH EO # 0.1 [facility] TBH PLT 344 [facility] TB[facility] RBC 4.15 Low [facility] TBH WBC 6.1 [facility] e [facility] Healthcar e HCG ( test) Ql (U)o n 11-18-2024 Interpretation and review of laboratory results Normal [facility] Preg Test, Ur Positive Negative [facility] Health care [facility] US OB TRANSVAGINALon 025 US [...] II, MD, PHD at 19-Nov-2024 08:41:19 AM [facility]mer Normal Not Available Comment on above: Order Comment: US OB TRANSVAGINAL No LMP recorded. Urinalysis macro (dipstick) panel (U)on 11-18-2024 Bilirubin, UA Negative Negative - 4(70) +++ mg/dL [facility] Blood, UA Positive Negative - 50 Ankit/mcL [facility] Comment on above: trace Clarity, UA Clear [facility] re Color, UA Yellow [facility] Glucose, UA Negative Negative - 1999(110) ++++ mg/dL [facility] Interpretation and review of laboratory results Normal [facility] Ketones, UA Negative Negative - 160(16) ++++ mg/dL [facility] Leukocytes, UA Negative Negative - 500+++ Guy/mcL [facility] Nitrite, UA Negative Negative - Positive [facility] pH, UA 7 5 - 9 [facility] Protein, UA Negative Negative - 1999(20) ++++ mg/dL [facility] Spec Grav, UA 1.01 1 - 1.03 [facility] Urobilinogen, UA 0.2 0.2 - 12 mg/dL [facility] IGP,APTIMA HPV,AGE GDLNon AGE GDLN ACOG TESTING Note . [facility] Comment on above: TESTS RESULT FLAG UN ITS REF RANGE LAB Clinician Provided Cytology Information Source.............Cervix;Endocervix No. of containers..01 ThinPrep Vial Age Algo ACOG Lulu... FLAG LEGEND: L-Low Normal,H-High Normal,LL-Alert Low,HH-Alert High <-Panic Low,>-Panic High,A-Abnormal,AA-Critical Abnormal Performed at: 01 [facility] [address] [place] [address] Karolyn Mcallister MD, IGP, RFX APTIMA HPV ASCU Note . [facility] Comment on above: TESTS RESULT FLAG UN ITS REF RANGE LAB DIAGNOSIS: 02 NEGATIVE FOR INTRAEPITHELIAL LESION OR MALIGNANCY. Specimen adequacy: 02 Satisfactory for evaluation. Endocervical and/or squamous metaplastic cells (endocervical component) are present. Performed by: 02 Milka Ann Ski Top Trimmer ([facility]) . 02 Note: Note 02 The Pap [...] Low,>-Panic High,A-Abnormal,AA-Critical Abnormal Performed at: [address] [facility] [address] [id number] Karolyn Mcallister MD, Performed at: =G - [facility] [address] [id number] [facility]: Karolyn Mcallister MD, Phone: [phone] Performed at: - [facility] [id number] [facility]: Karolyn Mcallister MD, Phone: [phone] BRUSH-SPATULA CERVIX ENDOCERVIX [facility] PAP ACOG PANEL 2: 21 to 29on 08-29-2022 . . Normal [facility] Comment on above: Performed By: #### [id number] #### [facility] [address] [place] [address] Dr. Mariama Leger Age Gdln ACOG Testing 21-29 Normal [facility] Comment on above: Performed By: #### [id number] #### [facility] [address] [place] [address] Dr. Mariama Leger DIAGNOSIS: Comment [facility] Comment on above: Result Comment: NEGA TIVE FOR INTRAEPITHELIAL LESION OR MALIGNANCY. Performed By: #### [id number] #### [facility] [address] [place] [address] Dr. Mariama Leger Methodology: Comment [facility] Comment on above: Result Comment: This liquid based ThinPrep(R) pap test was screened with the use of an image guided system. Performed By: #### [id number] #### [facility] [address] [place] [address] Dr. Mariama Leger Note: Comment [facility] Comment on above: Result Comment: The Pap smear is a screening test designed to aid in the detection of premalignant and malignant conditions of the uterine cervix. It is not a diagnostic procedure and should not be used as the sole means of detecting cervical cancer. Both false-positive and false-negative reports do occur. . Performed By: #### [id number] #### [facility] [address] [place] [address] Dr. Mariama Leger Performed by: Comment Normal [facility] Comment on above: Result Comment: Patricia Rogel Ski Top Trimmer (AS[facility]) Performed By: #### [id number] #### [facility] [address] [place] [address] Dr. Mariama Leger Reflex Criteria: Comment [facility] Comment on above: Result Comment: The HPV DNA reflex criteria were not met with this specimen result therefore, no HPV testing was performed. . Performed By: #### [id number] #### [facility] [address] [place] [address] Dr. Mariama Leger Specimen adequacy: Comment Normal [facility] Comment on above: Result Comment: Sati sfactory for evaluation. Endocervical and/or squamous metaplastic cells (endocervical component) are present. Performed By: #### [id number] #### [facility] [address] [address] [address] Mariama Leger ECG 12 lead ECGon 12-06-2020 ECG 12 lead ECG [facility] [place] [address] [place] [address] Electrocardiograph Report Signed Patient: Jessica Valle MR#: [id number] 36 : 2000 Acct:[id number] Age/Sex: 20 / F ADM Date: 12/06/20 Loc: ER Room: Type: [facility] ER Attending Dr: Ordering Provider: Nabil Richard [...] 12/06/20 1748 Signed By: 12/08/20 0946 Normal [facility] Glucose Poct Glucometerson 0 12-06-2020 Glucose [Mass/Vol] 113 mg/dL Normal [facility] Comment on above: Result Comment: [facility] Glucose Reference Range is dependent on time and content of last meal. Glucose of more than 200 mg/dL in a nonstressed, ambulatory subject supports the diagnosis of Diabetes Mellitus. PERFORMED BY: [place] [address] PATHOLOGIST NAIL STICKER ALISIA DIAL M.D. Performed By: #### G LULS #### Point of Care testing , Glucose [Mass/Vol] 65 mg/dL Normal [facility] Comment on above: Result Comment: [facility] Glucose Reference Range is dependent on time and content of last meal. Glucose of more than 200 mg/dL in a nonstressed, ambulatory subject supports the diagnosis of Diabetes Mellitus. PERFORMED BY: [place] [address] PATHOLOGIST NAIL STICKER ALISIA DIAL M.D. Performed By: #### G LULS #### Point of Care testing , HCG,Urineon 12-06-2020 Beta HCG ( test) Ql (U) Negative Normal [facility] Comment on above: Result Comment: PERF ORMED BY: [place] [address] PATHOLOGIST NAIL STICKER ALISIA DIAL M.D. Performed By: #### U HCG #### [address] [address] [facility] Vital Signs Date Time Vital Sign Value Performing Clinician Facility 03-14-2025 11:30-0400 Body mass index (BMI) [Ratio] 21.67 kg/m2 Ida Benítez ANTIQUE CLOCKS REPAIRER Work Phone: [facility] 03-14-2025 11:30-0400 Body weight 64.64 kg Ida Benítez ANTIQUE CLOCKS REPAIRER Work Phone: [facility] 03-14-2025 11:30-0400 Diastolic blood pressure 72 mm[Hg] Ida Benítez ANTIQUE CLOCKS REPAIRER Work Phone: [facility] 03-14-2025 11:30-0400 Systolic blood pressure 120 mm[Hg] Ida Benítez ANTIQUE CLOCKS REPAIRER Work Phone: [facility] 02-14-2025 10:37-0400 Body mass index (BMI) [Ratio] 20.53 kg/m2 Mariella Milton DO Work Phone: [facility] 02-14-2025 10:37-0400 Body weight 61.24 kg Mariella Milton DO Work Phone: [facility] 02-14-2025 10:37-0400 Diastolic blood pressure 60 mm[Hg] Mariella Milton DO Work Phone: [facility] 02-14-2025 10:37-0400 Systolic blood pressure 120 mm[Hg] Mariella Milton DO Work Phone: [facility] 01-17-2025 10:54-0400 Body mass index (BMI) [Ratio] 20.19 kg/m2 Mariella Milton DO Work Phone: [facility] 01-17-2025 10:54-0400 Body weight 60.24 kg Mariella Milton DO Work Phone: [facility] 01-17-2025 10:54-0400 Diastolic blood pressure 74 mm[Hg] Mariella Milton DO Work Phone: [facility] 01-17-2025 10:54-0400 Systolic blood pressure 126 mm[Hg] Mariella Milton DO Work Phone: [facility] 12-20-2024 09:29-0400 Body mass index (BMI) [Ratio] 19.69 kg/m2 Mariella Milton DO Work Phone: [facility] 12-20-2024 09:29-0400 Body weight 58.74 kg Mariella Milton DO Work Phone: [facility] 12-20-2024 09:29-0400 Diastolic blood pressure 72 mm[Hg] Mariella Milton DO Work Phone: [facility] 12-20-2024 09:29-0400 Systolic blood pressure 116 mm[Hg] Mariella Milton DO Work Phone: [facility] 11-18-2024 11:00-0400 Body mass index (BMI) [Ratio] 19.46 kg/m2 Nom Nurse [facility] 11-18-2024 11:00-0400 Body weight 58.06 kg [facility] Nurse [facility] 11-18-2024 11:00-0400 Diastolic blood pressure 72 mm[Hg] [facility] Nurse [facility] 11-18-2024 11:00-0400 Systolic blood pressure 118 mm[Hg] Nom Nurse [facility] 10-05-2023 10:53-0400 Body height 172.72 cm [facility] 10-05-2023 10:53-0400 Body mass index (BMI) [Ratio] 19.2 kg/m2 [facility] 10-05-2023 10:53-0400 Body temperature 100.1 [degF] [facility] 10-05-2023 10:53-0400 Body weight 57.32 kg [facility] 10-05-2023 10:53-0400 Heart rate 98 /min [facility] 10-05-2023 10:53-0400 Respiratory rate 18 /min [facility] 10-05-2023 10:53-0400 SaO2% (BldA) [Mass fraction] 98 % [facility] Encounters Encounter Date Encounter Type Care Provider Facility Start: 03-14-2025 End: 03-14-2025 Bamboo flowsheet Ida Benítez ANTIQUE CLOCKS REPAIRER Work Phone: [facility] Start: 03-14-2025 End: 03-14-2025 Bamboo flowsheet Ida Benítez ANTIQUE CLOCKS REPAIRER Work Phone: [facility] Start: 03-14-2025 End: 03-14-2025 ambulatory IDA BENÍTEZ Not Available Start: 03-14-2025 End: 03-14-2025 flow sheet Ida Benítez ANTIQUE CLOCKS REPAIRER Work Phone: [facility] Comment on above: Second trimester pre gnancy ([facility]); 25 weeks gestation of ([facility]); Diabetes mellitus screening Start: 02-14-2025 End: 02-14-2025 flow sheet Mariella Milton DO Work Phone: [facility] Comment on above: 21 weeks gestation o f ([facility]); Second trimester fetus ([facility]) Start: 02-14-2025 End: 02-14-2025 ambulatory MARIELLA MILTON Not Available Start: 01-17-2025 End: 01-17-2025 Bamboo flowsheet Mariella Milton DO Work Phone: [facility] Start: 01-17-2025 End: 01-18-2025 Bamboo flowsheet Mariella Milton DO Work Phone: [facility] Start: 01-17-2025 End: 01-18-2025 External Result Encounter Mariella Milton DO Work Phone: [facility] External Department Unsolicited Start: 01-17-2025 End: 01-17-2025 Periodic preventive med est patient 18-39 yrs Mariella Milton DO Work Phone: [facility] Comment on above: Second trimester fet us ([facility]); 17 weeks gestation of ([facility]); Screening, , for anatomic survey ([facility]) Start: 01-17-2025 End: 01-17-2025 ambulatory MARIELLA MILTON Not Available Start: 12-20-2024 End: 12-20-2024 Bamboo flowsheet Mariella Milton DO Work Phone: [facility] Start: 12-20-2024 End: 12-20-2024 Bamboo flowsheet Mariella Milton DO Work Phone: [facility] Start: 12-20-2024 End: 12-20-2024 ambulatory MARIELLA MILTON Not Available Start: 12-20-2024 End: 12-20-2024 flow sheet Mariella Milton DO Work Phone: [facility] Comment on above: Second trimester pre gnancy ([facility]); 13 weeks gestation of ([facility]) Start: 12-10-2024 End: 12-10-2024 Clinisync Result Encounter Mariella Milton DO Work Phone: [facility] External [facility] Unsolicited Start: 12-10-2024 End: 12-10-2024 Clinisync Result Encounter Mariella Milton DO Work Phone: [facility] External Department Unsolicited Start: 11-18-2024 End: 11-18-2024 Office outpatient visit [...] Not Available Start: 10-05-2023 End: 10-05-2023 ambulatory [facility] Work Phone: Start: 10-05-2023 End: 10-05-2023 Patient encounter procedure [facility] Work Phone: Start: 08-21-2022 End: 08-21-[address] MARIELLA ROSE . Facility: Procedures Date Procedure Procedure Detail Performing Clinician Start: 03-14-2025 Urnls dip stick/tabl et rgnt non-auto w/o micrscp Ida Benítez [employer]QUE [employer] REPAIRER Work Phone: Start: 02-14-2025 Urnls dip stick/tabl et rgnt non-auto w/o micrscp Mariella Milton DO Work Phone: Start: 01-17-2025 RECURRENT VAGINITIS (HTRX) Mariella Milton DO Work Phone: Start: 01-17-2025 Urnls dip stick/tabl et rgnt non-auto w/o micrscp Mariella Milton DO Work Phone: Start: 12-20-2024 Urnls dip stick/tabl et rgnt non-auto w/o micrscp Mariella Milton DO Work Phone: Start: 12-10-2024 ALL CBC WITH AUTO DIFF Mariella Milton DO Work Phone: Start: 11-18-2024 End: 11-18-2024 Urnls dip stick/tablet rgnt non-auto w/o micrscp Mariella Milton DO Work Phone: Start: 08-29-2024 IGP,APTIMA HPV,AGE GDLN Mariella Milton DO Work Phone: Plan of Treatment Date Care Activity Detail Author Start: 09-05-2025 End: 09-05-2025 Patient encounter procedure [facility] Start: 04-04-2025 End: 04-04-2025 Patient encounter procedure 04/04/2025 1:40 PM EDT Routine [facility] [address] [place] [address] Monica Ernandez, PA [address] [place] [address] [facility] Start: 03-14-2025 End: 03-14-2026 CBC panel - Blood by Automated count CBC Lab Routine Diabetes mellitus screening Expected: 03/14/2025 (Approximate), Expires: 03/14/2026 [facility] Work Phone: Comment on above: Expected: 03/14/2025 (Approximate), Expires: 03/14/2026 Start: 03-14-2025 End: 03-14-2026 Measurement of glucose 1 hour after glucose challenge for glucose tolerance test Glucose tolerance, 1 hour Lab Routine Diabetes mellitus screening Expected: 03/14/2025 (Approximate), Expires: 03/14/2026 [facility] Comment on above: Expected: 03/14/2025 (Approximate), Expires: 03/14/2026 Start: 03-14-2025 End: 03-14-2025 Patient encounter procedure 03/14/2025 11:20 AM EDT [facility]ine [facility] [address] [address] Ida Benítez, [employer] REPA[employer]ER [address] [place] [address] [facility] Start: 02-14-2025 End: 02-14-2025 Patient encounter procedure 02/14/2025 10:40 AM EDT Routine [facility] [address] [place] [address] Mariella Rose, DO [address] [place] [address] [facility] Start: 02-14-2025 End: 02-14-2025 Professional / ancillary services management 02/14/2025 9:30 AM EDT Ancillary Procedure [facility] [address] [place] [id number] [facility] Start: 01-17-2025 End: 04-19-2025 Alpha fetoprotein, maternal Alpha fetoprotein, maternal Lab Routine Second trimester fetus ([facility]) 17 weeks gestation of ([facility]) Expected: 01/17/2025 (Approximate), Expires: 04/19/2025 [facility] Work Phone: Comment on above: Expected: 01/17/2025 (Approximate), Expires: 04/19/2025 Start: 01-17-2025 End: 04-19-2025 US for US OB 14+ weeks anatomy scan Imaging Routine Second trimester fetus ([facility]) 17 weeks gestation of ([facility]) Screening, , for anatomic survey ([facility]) Expected: 01/17/2025, Expires: 04/19/2025 [facility] Comment on above: Expected: 01/17/2025 , Expires: 04/19/2025 Start: 01-17-2025 End: 01-17-2025 Patient encounter procedure 01/17/2025 10:20 AM EDT Routine [facility] [address] [place] [id number] Mariella Rose, DO [address], [place] [id number] [facility] Start: 12-20-2024 End: 12-20-2024 Patient encounter procedure 12/20/2024 9:10 AM EDT Routine [facility] [address] [place] [address] Mariella Rose, DO [address] [place] [address] [facility] Start: 11-18-2024 End: 11-18-2025 ABO/Rh ABO/Rh Lab Routine Missed menses , unspecified gestational age ([facility]) Expected: 11/18/2024 (Approximate), Expires: 11/18/2025 [facility] Comment on above: Expected: 11/18/2024 (Approximate), Expires: 11/18/2025 Start: 11-18-2024 End: 11-18-2025 Blood type and Indirect antibody screen panel - Blood Type and screen Lab Routine Missed menses , unspecified gestational age ([facility]) Expected: 11/18/2024 (Approximate), Expires: 11/18/2025 [facility] Work Phone: Comment on above: Expected: 11/18/2024 (Approximate), Expires: 11/18/2025 Start: 11-18-2024 End: 11-18-2025 Drugs of abuse panel - Urine by Screen method Rapid drug screen, urine Lab Routine , unspecified gestational age ([facility]) Encounter for supervision of normal first in first trimester ([facility]) Expected: 11/18/2024 (Approximate), Expires: 11/18/2025 [facility] Comment on above: Expected: 11/18/2024 (Approximate), Expires: 11/18/2025 Bacteria identified in Urine by Culture Urine culture Microbiology Routine Missed menses Ordered: 11/18/2024 [facility] Comment on above: Ordered: 11/18/2024 CBC W Auto Different ial panel - Blood CBC and differential Lab Routine Missed menses , unspecified gestational age ([facility]) Ordered: 11/18/2024 [facility] Comment on above: Ordered: 11/18/2024 CHLAMYDIA TRACHOMATI S (GENITO/STI) CHLAMYDIA TRACHOMATIS (GENITO/STI) Lab Routine Second trimester fetus ([facility]) 17 weeks gestation of ([facility]) Ordered: 01/17/2025 [facility] Comment on above: Ordered: 01/17/2025 Hemoglobin A1c/Hemoglobin.total in Blood Hemoglobin A1c Lab Routine Missed menses , unspecified gestational age ([facility]) Ordered: 11/18/2024 [facility] Comment on above: Ordered: 11/18/2024 Hepatitis B virus surface Ag [Presence] in Serum or Plasma by Immunoassay Hepatitis B surface antigen Lab Routine Missed menses , unspecified gestational age ([facility]) Ordered: 11/18/2024 [facility] Comment on above: Ordered: 11/18/2024 Hepatitis C virus Ab [Presence] in Serum or Plasma by Immunoassay Hepatitis C antibody Lab Routine Missed menses , unspecified gestational age ([facility]) Ordered: 11/18/2024 [facility] Comment on above: Ordered: 11/18/2024 HIV-1/HIV-2 antigen/antibody combination immunoassay HIV-1 and HIV-2 antibodies Lab Routine Missed menses , unspecified gestational age ([facility]) Ordered: 11/18/2024 [facility] Comment on above: Ordered: 11/18/2024 Neisseria gonorrhoea e DNA [Presence] in Unspecified specimen by GIOVANI with probe detection Neisseria gonorrhea DNA probe, direct Lab Routine Second trimester fetus ([facility]) 17 weeks gestation of ([facility]) Ordered: 01/17/2025 [facility] Comment on above: Ordered: 01/17/2025 Reagin Ab [Presence] in Serum by RPR RPR Lab Routine Missed menses , unspecified gestational age ([facility]) Ordered: 11/18/2024 [facility] Comment on above: Ordered: 11/18/2024 Rubella antibody, IgG Rubella an tibody, IgG Lab Routine Missed menses , unspecified gestational age ([facility]) Ordered: 11/18/2024 [facility] Comment on above: Ordered: 11/18/2024 SURESWAB(R) ADVANCED VAGINITIS PLUS, TMA SURESWAB(R) ADVANCED VAGINITIS PLUS, TMA Pathology and Cytology Routine Second trimester fetus ([facility]) 17 weeks gestation of ([facility]) Ordered: 01/17/2025 [facility] Comment on above: Ordered: 01/17/2025 Payers Date Payer Category Payer Private Health Insurance [facility] [id number] 2019 Private Health Insurance [id number] 1998 Unknown [id number] 1998 Unknown [id number] 1258 1998 Unknown [id number] 1258 1998 Unknown [id number] 9 1998 Unknown [id number] 1258 1998 Unknown [id number] 9 1998 Unknown [id number] 1258 1998 Unknown [id number] 9 1998 Unknown [id number] 1259 1959 Unknown [id number] Self-pay Self Pay [id number] Social History Date Type Detail Facility Start: 08-04-2023 End: 10-05-2023 Tobacco smoking status NHIS Never smoked tobacco (finding) [facility] Start: 2000 Sex Assigned At Female [facility] Start: 08-29-2024 End: 02-14-2025 Alcoholic beverage intake Current drinker of alcohol (finding) [facility] Start: 08-29-2024 History of Social function [facility] Start: 08-29-2024 Tobacco use panel [facility] Start: 08-18-2023 Gender identity Identifies as female gender (finding) [facility] Start: 08-18-2023 Sexual orientation Heterosexual (finding) [facility] Start: 10-02-2024 [facility] Clinical Notes 11-18-2024 to 03-14-2025 Ida Benítez NP - 03/14/2025 11:20 AM Sis Jensen LPN - 02/14/2025 10:40 AM Sis Jensen LPN - 01/17/2025 10:20 AM Sis Jensen LPN - 12/20/2024 9:10 AM EDT Note Date & Type Note Facility 03-14-2025 History of Present illness Narrative Reason for Appointment: Patient ID: Jessica Wilson [...] nursing note reviewed. Exam conducted with a poured concrete wall technician present. Vitals: Estimated body mass index is 21.67 kg/m as calculated from the following: Height as of 08/21/22: 5' 8 . Weight as of this encounter: 142 lb 8 oz. BP: 120/72 Patient's last menstrual period was 09/18/2024. ASSESSMENT & PLAN ICD-10-CM 1. Second trimester ([facility]) Z34.92 POCT urinalysis dipstick manually resulted 2. 25 weeks gestation of ([facility]) Z3A.25 3. Diabetes mellitus screening Z13.1 CBC [...] by Ida Benítez NP on behalf of: Ida Benítez NP documented in this encounter [facility] 02-14-2025 History of Present illness Narrative Reason for Appointment: Patient ID: Jessica Wilson [...] No family history on file. SURGICAL HISTORY History reviewed. No pertinent surgical history. REVIEW OF SYSTEMS Review of Systems: Review [...] nursing note reviewed. Exam conducted with a poured concrete wall technician present. Vitals: Estimated body mass index is 20.53 kg/m as calculated from the following: Height as of 08/21/22: 5' 8 . Weight as of this encounter: 135 lb. BP: 120/60 Patient's last menstrual period was 09/18/2024. ASSESSMENT & PLAN ICD-10-CM 1. 21 weeks gestation of ([facility]) Z3A.21 POCT urinalysis dipstick manually resulted 2. Second trimester fetus ([facility]) Z34.92 POCT urinalysis dipstick manually resulted Patient presents today for a routine obstetrics appointment. Patient is currently 21w2d with a Estimated Date of Delivery: 06/25/25. Pt had anatomy scan prior to appt. Pt will be notified when results are read. Pt has been having elevated heartrates in the morning while getting ready. Pt advised to drink gatorade lyte, or liquid IV. Pt also advised to eat protein snack prior to bedtime. Pt voiced understanding. Pt to return in 4 weeks for scheduled OB appt. Documented by Imani Jensen LPN on behalf of: Mariella Rose DO documented in this encounter [facility] 01-17-2025 History of Present illness Narrative Reason for Appointment: Patient ID: Jessica Wilson is a 24 y.o. female who presents for No chief complaint on file. Patient presents today for STD Check. and Return OB appointment. MEDICATIONS Current Outpatient Medications Medication Instructions calcitriol (Rocaltrol) 0.25 MCG capsule No dose, route, or frequency recorded. MV-Min-Fe Fum-FA-DHA ( 1 PO) No dose, [...] Constitutional: Appearance: Normal appearance. She is well-developed. Genitourinary: Vulva normal. Cardiovascular: Rate and Rhythm: Normal rate and [...] nursing note reviewed. Exam conducted with a poured concrete wall technician present. Vitals: Estimated body mass index is 20.19 kg/m as calculated from the following: Height as of 08/21/22: 5' 8 . Weight as of this encounter: 132 lb 12.8 oz. BP: 126/74 Patient's last menstrual period was 09/18/2024. ASSESSMENT & PLAN ICD-10-CM 1. Second trimester fetus ([facility]) Z34.92 Alpha fetoprotein, maternal POCT urinalysis dipstick manually resulted Alpha fetoprotein, maternal SURESWAB(R) ADVANCED VAGINITIS PLUS, TMA CHLAMYDIA TRACHOMATIS (GENITO/STI) Neisseria gonorrhea DNA probe, direct US OB 14+ weeks anatomy scan 2. 17 weeks gestation of ([facility]) Z3A.17 Alpha fetoprotein, maternal POCT urinalysis dipstick manually resulted Alpha fetoprotein, maternal SURESWAB(R) ADVANCED VAGINITIS PLUS, TMA CHLAMYDIA TRACHOMATIS (GENITO/STI) Neisseria gonorrhea DNA probe, direct US OB 14+ weeks anatomy scan 3. Screening, , for anatomic survey ([facility]) Z36.89 US OB 14+ weeks anatomy scan Return OB/Annual Exam: Patient presents today for a routine obstetrics appointment. Patient is currently 17w2d . Patient states she is doing well but has complaints of nausea in the morning. cultures was obtained without difficulty and patient was given orders for anatomy scan and msAFP to be obtained. Orders Placed This Encounter Procedures US OB 14+ weeks anatomy scan Alpha fetoprotein, maternal CHLAMYDIA TRACHOMATIS (GENITO/STI) Neisseria gonorrhea DNA probe, direct POCT urinalysis dipstick manually resulted Follow Up: Patient is to schedule annual exam for next year and return to office in 4 weeks for OB appointment. Documented by Imani Jensen LPN on behalf of: Mariella Rose DO documented in this encounter [facility] 12-20-2024 History of Present illness Narrative Reason for Appointment: Patient ID: Jessica Wilson is a 24 y.o. female who presents for Routine Visit Patient presents today for Return OB appointment. MEDICATIONS Current Outpatient Medications Medication Instructions calcitriol (Rocaltrol) 0.25 MCG capsule No dose, route, or frequency recorded. MV-Min-Fe Fum-FA-DHA ( 1 PO) No dose, [...] nursing note reviewed. Exam conducted with a poured concrete wall technician present. Vitals: Estimated body mass index is 19.69 kg/m as calculated from the following: Height as of 08/21/22: 5' 8 . Weight as of this encounter: 129 lb 8 oz. BP: 116/72 Patient's last menstrual period was 09/18/2024. ASSESSMENT & PLAN ICD-10-CM 1. Second trimester ([facility]) Z34.92 POCT urinalysis dipstick manually resulted 2. 13 weeks gestation of ([facility]) Z3A.13 New OB: Patient presents today for 1st time obstetrics appointment with provider. Patient is currently 13w2d . Patients history has been reviewed in great detail including any potential risks. Patient stated she currently has no complaints. Expectations throughout regarding labs, ultrasounds, and appointments have been discussed with the patient in detail. It was reiterated that the patient is to drink 6-8 glasses of water a day, eat 6 small meals a day, do not consume raw or undercooked meat, and stay away from [facility]. Patient has been consulted regarding any further do's and don'ts of . Patient voiced understanding and all questions and concerns were answered. Pt is rubella non-immune. Pt to get vaccine after delviery. Orders Placed This Encounter Procedures POCT urinalysis dipstick manually resulted Follow Up: Patient is to return in 4 weeks for routine OB appointment. Documented by Imani Jensen LPN on behalf of: Mariella Rose DO documented in this encounter [facility] 11-18-2024 History of Present illness Narrative Reason for Appointment: Patient ID: Jessica Wilson [...] dipstick manually resulted , unspecified gestational age ([facility]) - Type and screen; Future - ABO/Rh; Future - CBC and differential - Hemoglobin A1c - RPR - Rubella antibody, IgG - Hepatitis B surface antigen - Hepatitis C antibody - HIV-1 and HIV-2 antibodies - Rapid drug screen, urine; Future Encounter for supervision of normal first in first trimester ([facility]) - Rapid drug screen, urine; Future Nurse Note: Patient unsure of [employer]. Pt will call insurance. Pt is aware to take both labs to [facility] to have done. Lab will not draw unless both [place] and labs are together. PVU. OB Intake: [...] meat, and stay away from [facility]. Patient has also been advised to [...] Francy Urbano MA documented in this encounter [facility] Evaluation note No assessment inform ation available [facility] Work Phone: Evaluation note Diagnosis Amenorrhea Absence of menstruation Missed menses , unspecified gestational age ([facility]) Encounter for supervision of normal first in first trimester ([facility]) documented in this encounter [facility] HealthcareEvaluation note* Diagnosis Second trimester ([facility]) state, incidental 13 weeks gestation of ([facility]) documented in this encounter [facility]* Diagnosis Second trimester fetus ([facility]) 17 weeks gestation of ([facility]) Screening, , for anatomic survey ([facility]) Encounter for anatomic survey documented in this encounter [facility] HealthcareEvaluation note* Diagnosis 21 weeks gestation of ([facility] Second trimester fetus ([facility]) documented in this encounter [facility]* Diagnosis Second trimester ([facility]) state, incidental 25 weeks gestation of ([facility]) Diabetes mellitus screening Screening for diabetes mellitus documented in this encounter [facility] Summary Purpose Family History No Family [...] section and content) DATE CREATED AUTHOR 06/30/2021 [facility] DATE CREATED AUTHOR AUTHOR'S ORGANIZ ATION 08/30/2022 [facility] DATE CREATED AUTHOR AUTHOR'S ORGANIZ ATION 03/16/2025 [facility] Care Teams (unrecognized sec tion and content) Team Status: Active Member Role Status Dates Murphy Harman MD Primary Care Provider Active Team Status: Inactive Member Role Status Dates Murphy Harman MD Primary Care Provider Active Start: October 05, 2023 End: October 05, 2023 Nichole Freitas APRN Attending Provider Active Start: October 05, 2023 End: October 05, 2023 [employer] Relationship Specialty Start Date End Date Murphy Harman MD [address] [place] [address] PCP - General Family Medicine 08/25/23 [employer] Relationship Specialty Start Date End Date Murphy Harman MD [address] [place] [address] PCP - General Family Medicine 08/25/23 [employer] Relationship Specialty Start Date End Date Murphy Harman MD [address] [place] [address] PCP - General Family Medicine 08/25/23 [employer] Relationship Specialty Start Date End Date Murphy Harman MD [address] [place] [address] PCP - General Family Medicine 08/25/23 [employer] Relationship Specialty Start Date End Date Murphy Harman MD [address] [place] [address] PCP - General Family Medicine 08/25/23 [employer] Stra[employer] Relationship Specialty Start Date End Date Murphy Harman MD [address] [place] [facility] [address] PCP - General Family Medicine 08/25/23 [employer] Stra[employer] Relationship Specialty Start Date End Date Murphy Harman MD [address] [place] [facility] [address] [phone] PCP - General Family Medicine 08/25/23 [employer] Stra[employer] Relationship Specialty Start Date End Date Murphy Harman MD [address] [place] [facility] [place] [address] PCP - General Family Medicine 08/25/23 Goals (unrecognized section and content) Goals may be documented in a n alternate section Reason for Visit (unrecogniz ed section and content) Reason Comments Amenorrhea Reason Comments Routine Visit FOR RECORDS PERTAINING TO PATIENTS WHO ARE [...] BE BASED ON THE PRIMARY CLINICAL RECORDS. [facility]. provides no warranty or guarantee of the accuracy or completeness of information in this document.
[2025-03-21 13:37] LABS: Hematocrit 30.4 % (36.0-48.0); Hemoglobin 10.7 g/dL (12.0-16.0); Immature Granulocytes Abs Auto 0.04 10^3/uL (0.00-0.03); Immature Granulocytes Pct Auto 0.6 % (0.0-0.5); Lymphocytes Absolute Auto 1.7 10^3/uL (1.2-3.8); Mean Corpuscular HGB Conc 35.2 g/dL (29.9-35.2); Mean Corpuscular Hemoglobin 31.4 pg (26.7-34.0); Mean Corpuscular Volume 89.1 fL (81.0-99.0); Platelet Count 341 10^3/uL (150-450); Red Blood Count 3.41 10^6/uL (4.20-5.40); White Blood Count 6.3 10^3/uL (4.0-11.0)
[2025-03-21 13:42] LABS: Glucose 1 Hour 109 mg/dL (<130)
== END 2025-03-21 12:09 | disposition home or self-care (01) ==
LOC: LAB 12:10
PROVIDERS: PCP Family Medicine; Visit Provider Nurse Practitioner Family
DX: Z13.1 Encounter for screening for diabetes mellitus (principal)
CPT/HCPCS: 36415; 82950; 85025

== ENCOUNTER 2025-03-28 10:02 | Outpatient (OUT) | payer OTHER, SELFPAY ==
--- OUTSIDE RECORDS SUMMARY | 2023-10-12 11:30 | XMS_ITS ---
Author Organization The [facility] in [place] Address [address] [place] [address] Care Team Providers Care Manager Marketing Name Role Phone Markel Jin Primary Care Provider ZACH JIN Unavailable [phone] REASON FOR VISIT ingrown armpit hair Encounters Encounter Location Date Provider Diagnosis [facility] [address] [facility] [place] [place] [address] 10/12/2023 ZACH JIN Plan Of Treatment No Information Progress Notes * SUSHMAMayelinJessica CDOB:2000 (24 yo F)Acc No.[id number]:10/12/2023 UNLOCKED PROGRESS NOTE Progress Note Patient: Jessica QUIÑONES :?Zach Jin M.D.:2000???Age:23 Y ???Sex:FemaleDate:4Phone:[phone]:[address], [place], [id number]:Markel Jin Subjective: * Chief Complaints: * 1 . Ingrown armpit hair. * Medical History: Objective: * Vitals: Assessment: Plan: * Treatment: * * Electronic signature of ZACH JIN MD on 03/28/2025 at 10:07 AM EDTSign off status: PendingVisit Status:?CANC (Cancelled) * Provider: Miles Jin M.D. Date: 10/12/2023 Generated for Printing/Faxing/eTransmitting on:?03/28/2025 10:07 AM EDT
--- OUTSIDE RECORDS SUMMARY | 2025-03-14 11:20 | XMS_ITS | Encounter Summary ---
Author Organization [facility] Address [address] [place] [address] Care Team Providers Care Field Seismologist Name Role Phone Murphy Harman MD Primary Care Provider [phone] Reason for Visit * ReasonCommentsRoutine Visit Encounter Details DateTypeDepartmentCare Team (Latest Contact Info)Qbalvbikbqa94/07/2025 11:20 AM EDTRoutine [facility] [address] [place] [address] Ida Benítez, JENNIFER [address] [place] [address] Second trimester ([facility]); 25 weeks gestation of ([facility]); Diabetes mellitus screening Social History Tobacco UseTypesPacks/DayYears UsedDateSmoking Tobacco: NeverAlcohol UseStandard Drinks/WeekCommentsYes0 (1 standard drink = 0.6 oz pure alcohol) Estimated Date of NpimwxkdHgfwetidFud60/18/2026Based on last menstrual period of 09/18/2024Sex and Gender InformationValueDate RecordedSex Assigned at BirthFemale 08/18/2023 8:42 AM EDTLegal XsnVbdkhc56/15/2023 7:31 PM EDTGender IdentityFemale 08/18/2023 8:42 AM EDTSexual HzjxxtgwtxlKswczduw89/12/2024 8:42 AM EDTdocumented as of this encounter Last Filed Vital Signs Vital SignReadingTime TakenCommentsBlood Gwsewfmr066/7210 11:30 AM EDT Pulse--Temperature--Respiratory Rate--Oxygen Saturation--Inhaled Oxygen Concentration--Rtxmdx99.6 kg (142 lb 8 oz)03/14/2025 11:30 AM EDTHeight--Body Mass Index21.6703 12:00 PM EDTdocumented in this encounter Progress Notes * Ida Benítez NP - 03/14/2025 11:20 AM EDT Reason for Appointment: Patient ID: Jessica Wilson is a 24 y.o. female who presents for Routine Visit Patient presents today for Return OB appointment. MEDICATIONS Current Outpatient Medications Medication Instructions MV-Min-Fe Fum-FA-DHA ( 1 PO) No dose, route, or frequency recorded. ALLERGIES No Known Allergies PROBLEMS Active Ambulatory Problems Diagnosis Date Noted No Active Ambulatory Problems Resolved Ambulatory Problems Diagnosis Date Noted No Resolved Ambulatory Problems Past Medical History: Diagnosis Date Encounter for gynecological examination (general) (routine) without abnormal findings HISTORY PAST MEDICAL HISTORY SOCIAL HISTORY Past Medical History: Diagnosis Date Encounter for gynecological examination (general) (routine) without abnormal findings Social History Tobacco Use Smoking status: Never Smokeless tobacco: Not on file Substance Use Topics Alcohol use: Yes Drug use: Not on file FAMILY HISTORY No family history on file. SURGICAL HISTORY No past surgical history on file. REVIEW OF SYSTEMS Review of Systems: Review of Systems Constitutional: Negative. HENT: Negative. Eyes: Negative. Respiratory: Negative. Cardiovascular: Negative. Gastrointestinal: Negative. Genitourinary: Negative. Musculoskeletal: Negative. Skin: Negative. Neurological: Negative. All other systems reviewed and are negative. Hematological: Negative. Endocrine: Negative. Allergic/Immunologic: Negative. OBJECTIVE Objective: Physical Exam Constitutional: Appearance: Normal appearance. She is well-developed. Cardiovascular: Rate and Rhythm: Normal rate and regular rhythm. Pulmonary: Effort: Pulmonary effort is normal. Breath sounds: Normal breath sounds. Abdominal: General: Bowel sounds are normal. There is no distension. Palpations: Abdomen is soft. Tenderness: There is no abdominal tenderness. There is no guarding or rebound. Musculoskeletal: General: No swelling. Normal range of motion. Right lower leg: No edema. Left lower leg: No edema. Neurological: Mental Status: She is alert and oriented to person, place, and time. Skin: General: Skin is warm and dry. Psychiatric: Mood and Affect: Mood normal. Behavior: Behavior normal. Vitals and nursing note reviewed. Exam conducted with a filler sifter helper present. Vitals: Estimated body mass index is 21.67 kg/m?? as calculated from the following: Height as of 08/21/22: 5' 8 . Weight as of this encounter: 142 lb 8 oz. BP: 120/72 Patient's last menstrual period was 09/18/2024. ASSESSMENT & PLAN ICD-10-CM 1. Second trimester ([facility]) Z34.92 POCT urinalysis dipstick manually resulted 2. 25 weeks gestation of ([facility]) Z3A.25 3. Diabetes mellitus screening Z13.1 CBC Glucose tolerance, 1 hour CBC Glucose tolerance, 1 hour Return OB: Patient presents today for a routine obstetrics appointment. Patient is currently 25w2d . Patient states she is doing well but has complaints of being tired due to current . Patient has verbalizes frequent movement. labor precautions was discussed/given and patient was instructed to perform kick counts three times a day. Orders Placed This Encounter Procedures CBC Glucose tolerance, 1 hour POCT urinalysis dipstick manually resulted Follow Up: Patient is to return to office in 3 week for routine OB appointment. Documented by Ida Benítez NP on behalf of: Iad Benítez NP documented in this encounter Plan of Treatment DateTypeDepartmentCare Team (Latest Contact Info)Pduaezebenz98/28/2025 1:40 PM EDTRoutine [facility] [address] [place] [address] Monica Ernandez PA [address] [place], [place] [id number] 09/05/2025 8:30 AM EDTOffice Visit [facility]OM[facility] [address] [place] [address] [place], Garcia, [address] [place] [address] NameTypePriorityAssociated DiagnosesOrder ScheduleCBCLabRoutine Diabetes mellitus screening Expected: 03/14/2025 (Approximate), Expires: 03/14/2026Glucose tolerance, 1 hour LabRoutine Diabetes mellitus screening Expected: 03/14/2025 (Approximate), Expires: 03/14/2026documented as of this encounter Procedures Procedure NamePriorityDate/TimeAssociated DiagnosisCommentsPOCT URINALYSIS DFMSKJKHBexwwnu94/07/2025 11:35 AM EDT Second trimester ([facility] documented in this encounter Results * POCT urinalysis dipstick manually resulted (03/14/2025 11:35 AM EDT)Component ValueRef RangeTest MethodAnalysis TimePerformed AtPathologist SignatureColor, UAYellowClarity, UAClearGlucose, UANegativeNegative - 2000(110) ++++ mg/dL Bilirubin, UANegativeNegative - 4(70) +++ mg/dLKetones, UANegativeNegative - 160(16) ++++ mg/dLSpec Grav, UA1.0051 - 1.03Blood, UANegativeNegative - 50 Ankit/mcLpH, UA6.55 - 9Protein, UANegativeNegative - 2000(20) ++++ mg/dL Urobilinogen, UA0.20.2 - 12 mg/dLLeukocytes, UANegativeNegative - 500+++ Guy/mcLNitrite, UANegativeNegative - PositiveSpecimen (Source)Anatomical Location / LateralityCollection Method / VolumeCollection TimeReceived Time Urine03/14/2025 11:35 AM EDT Narrative Authorizing ProviderResult TypeResult StatusIda Benítez NPPOINT OF CARE TEST ENTER/EDIT ORDERABLESFinal Result documented in this encounter Visit Diagnoses Diagnosis Second trimester ([facility]) state, incidental 25 weeks gestation of ([facility]) Diabetes mellitus screening Screening for diabetes mellitus documented in this encounter Care Teams Team MemberRelationshipSpecialtyStart DateEnd Date Hoy, Murphy M, MD [address] [place] [phone] PCP - GeneralFamily Medicine08/25/23documented as of this encounter
--- OUTSIDE RECORDS SUMMARY | 2025-03-28 10:06 | XMS_ITS | Clinical Summary ---
Author Organization [facility] Address [address] [place] [address] Care Team Providers Care Environmental Officer Name Role Phone Murphy Harman MD Primary Care Provider [phone] Allergies No known active allergies Medications MedicationSigDispense QuantityRefillsLast FilledStart DateEnd DateStatus MV-Min-Fe Fum-FA-DHA ( 1 PO) Active Encounters DateTypeDepartmentCare QadcRvrwbuovcyi71/07/2025 11:20 [place] [address] Ida Benítez NP Second trimester ([facility]); 25 weeks gestation of ([facility]); Diabetes mellitus gejcxhcui84/07/2025amboo flowsheet [facility] MURPHY [address] [place] [address] Ida Benítez NP 02/14/2025 10:40 [place] [address] Garcia Rose DO 21 weeks gestation of ([facility]); Second trimester fetus ([facility])02/14/2025 9:30 AM EDTAncillary Procedure [facility] MURPHY [address] [place] [address] Second trimester fetus ([facility]); 17 weeks gestation of ([facility]); Screening, , for anatomic survey ([facility])02/07/2025bstract [facility] [place] [phone] Bernie Gustafson MA 01/17/2025 10:20 AM EDTRoutine [facility] [place] [phone] Garcia Rose DO Second trimester fetus ([facility]); 17 weeks gestation of ([facility]); Screening, , for anatomic survey ([facility])01/17/2025External Result Encounter N[facility] External Department Unsolicited Garcia Rose DO 01/17/2025amboo flowsheet [facility] [place] [address] Garcia Rose DO from Last 3 Months Family History RelationNameStatusCommentsFatherAliveMotherAlive Social History Tobacco UseTypesPacks/DayYears UsedDateSmoking Tobacco: Never Tobacco Cessation:Counseling Given: Not Answered Alcohol UseStandard Drinks/WeekCommentsYes0 (1 standard drink = 0.6 oz pure alcohol)Estimated Date of LoclwqjwKdipuoraGaa22/18/2026ased on last menstrual period of 09/18/2024Sex and Gender InformationValueDate RecordedSex Assigned at WkduhUpymzk11/12/2024 8:42 AM EDTLegal VzhNvahpw05/15/2023 7:31 PM EDTGender PriynlnrHqlqam27/12/2024 8:42 AM EDTSexual OrientationStraight 08/18/2023 8:42 AM EDT Last Filed Vital Signs Vital SignReadingTime TakenCommentsBlood Jsrfyjed080/7203/14/2025 11:30 AM EDT Pulse--Temperature--Respiratory Rate--Oxygen Saturation--Inhaled Oxygen Concentration--Xgocdc04.6 kg (142 lb 8 oz)03/14/2025 11:30 AM JKHPianzi754.7 cm (5' 8 )08/21/2022 12:00 PM EDTBody Mass Index21.67008/21/2022 12:00 PM EDT Plan of Treatment DateTypeDepartmentCare Team (Latest Contact Info)Lteyooejlfa08/28/2025 1:40 PM EDTRoutine [facility] [address] [place] [phone] Monica Ernandez PA [address] [place], [place] [phone] 09/05/2025 8:30 AM EDTOffice Visit NOMBrendon MURPHY [address] [place] [address] Garcia Rose DO [address] [place], [place] [phone] Procedures Procedure NamePriorityDate/TimeAssociated DiagnosisCommentsPOCT URINALYSIS VKQHQLSYPklugli49/07/2025 11:35 AM EDT Second trimester ([facility]) POCT URINALYSIS RGYGAPZSSulozgb71/09/2025 10:39 AM EDT 21 weeks gestation of ([facility]) Second trimester fetus ([facility]) OB 14+ WEEKS ANATOMY DWLWUfdocth81/09/2025 10:28 AM EDT Second trimester fetus ([facility]) 17 weeks gestation of ([facility]) Screening, , for anatomic survey ([facility]) RECURRENT VAGINITIS (HTRX)Tejifjo4601/17/2025 12:58 PM EDT POCT URINALYSIS IKFUVSYEAcuywur63/12/2025 12:21 PM EDT Second trimester fetus ([facility]) 17 weeks gestation of ([facility]) from Last 3 Months Results * POCT urinalysis dipstick manually resulted (03/14/2025 11:35 AM EDT) Only the most recent of3 resultswithin the time period is included. ComponentValueRef RangeTest MethodAnalysis TimePerformed AtPathologist Signature Color, UAYellowClarity, UAClearGlucose, UANegativeNegative - 1999(110) ++++ mg/dLBilirubin, UANegativeNegative - 4(70) +++ mg/dLKetones, UANegativeNegative - 160(16) ++++ mg/dLSpec Grav, UA1.0051 - 1.03Blood, UANegativeNegative - 50 Ankit/mcLpH, UA6.55 - 9Protein, UANegativeNegative - 2000(20) ++++ mg/dL Urobilinogen, UA0.20.2 - 12 mg/dLLeukocytes, UANegativeNegative - 500+++ Guy/mcL Nitrite, UANegativeNegative - PositiveSpecimen (Source)Anatomical Location / LateralityCollection Method / VolumeCollection TimeReceived AdugYhvtb07/07/2025 11:35 AM EDT Narrative Authorizing ProviderResult TypeResult StatusIda Benítez NPPOINT OF CARE TEST ENTER/EDIT ORDERABLESFinal Result * US OB 14+ weeks anatomy scan (02/14/2025 10:28 AM EDT)Anatomical Region LateralityModalityBodyUltrasoundSpecimen (Source)Anatomical Location / LateralityCollection Method / VolumeCollection TimeReceived Time02/14/2025 11:56 AM EDT Impressions 02/14/2025 1:09 PM EDT Single, live intrauterine , current sonographic age of 21 weeks and 1 days, with an estimated date of delivery of June 26, 2025 * ??Estimated Weight (g) by Percentile is based upon an accurate estimated age based onlast menstrual period. ?? TRANSCRIBED BY: ? ELECTRONICALLY SIGNED BY: Anish Pantoja MD Narrative 02/14/2025 1:09 PM EDT FINDINGS: A single, live intrauterine is present with normal cardiac rate of ??153 beats per minute. Normal activity and amniotic fluid volume. Amniotic ?? Morphology is grossly normal. ??The placenta is anterior, inferior aspect 3.4 cm from the closed cervical os. 3.9 cm length. ?? Thecurrent sonographic age is 21 weeks and 1 days, based on the following measurements: BPD ? 5.0 cm ( 21 weeks, 1 days) Head Circumference ? 18.3cm (20 weeks, 5 days) Abdominal Circumference ?15.9cm (21 weeks, ??0days) Femur Length ?3.7cm ( 21 weeks, 6 days) Presentation ? Cephalic ? Placenta ?Anterior ? Weight (g) by Percentile ?? 45.3% * These measurements result in an estimated date of delivery of ??June 26, 2025. ??The current estimated weight is 414 ?? grams ( ??pound, 15 ??ounces). ?? Procedure Note Anish Pantoja MD - 02/14/2025 FINDINGS: A single, live intrauterine is present with normal cardiacrate of 153 beats per minute. Normal activity and amniotic fluidvolume. Amniotic Morphology is grossly normal. The placenta isanterior, inferior aspect 3.4 cm from the closed cervical os. 3.9 cmlength. The current sonographic age is 21 weeks and 1 days, based on thefollowing measurements: BPD 5.0 cm ( 21 weeks, 1 days) Head Circumference 18.3cm (20 weeks, 5 days) Abdominal Circumference 15.9cm (21 weeks, 0days) Femur Length 3.7cm ( 21 weeks, 6 days) Presentation Cephalic Placenta Anterior Weight (g) by Percentile 45.3% * These measurements result in an estimated date of delivery of June. The current estimated weight is 414 grams ( pound, 15ounces). IMPRESSION: Single, live intrauterine , current sonographic age of 21 weeksand 1 days, with an estimated date of delivery of June 26, 2025 * Estimated Weight (g) by Percentile is based upon an accurateestimated age based on last menstrual period. TRANSCRIBED BY: ELECTRONICALLY SIGNED BY: Anish Pantoja MD Authorizing ProviderResult TypeResult StatusCorey Milton CASTRO OB US PROCEDURES Final Result * RECURRENT VAGINITIS (HTRX) (01/17/2025 12:58 PM EDT)ComponentValueRef Range Test MethodAnalysis TimePerformed AtPathologist SignatureATOPOBIUM VAGINAE0 19.961 - 24.689 ppm01/18/2025 6:29 AM EDTHealthTrackRx at LabPortATOPOBIUM VAGINAENot Rvcmwqca39.961 - 24.689 ppm01/18/2025 6:29 AM EDTHealthTrackRx at LabPortBVAB 2,3 (BACTERIAL VAGINOSIS ASSOCIATED BACTERIA 2, 3); MOBILUNCUS SPP 019.961 - 24.689 ppm01/18/2025 6:29 AM EDTHealthTrackRx at LabPortBVAB 2,3 (BACTERIAL VAGINOSIS ASSOCIATED BACTERIA 2, 3); MOBILUNCUS SPPNot Detected 19.961 - 24.689 ppm01/18/2025 6:29 AM EDTHealthTrackRx at LabPortCANDIDA ALBICANS, PARAPSILOSIS, TRAZKEYANZ800.000 - 30.347 ppm01/18/2025 6:29 AM EDT [facility] at LabPortCANDIDA ALBICANS, PARAPSILOSIS, TROPICALISNot Detected 23.000 - 30.347 ppm01/18/2025 6:29 AM EDTHealthTrackRx at LabPortCANDIDA SVOABNSM895.000 - 31.618 ppm01/18/2025 6:29 AM EDTHealthTrackRx at LabPort LISA GLABRATANot Vywviwsf37.000 - 31.618 ppm01/18/2025 6:29 AM EDT [facility] at LabPortCANDIDA CFDOGO720.000 - 30.873 ppm01/18/2025 6:29 AM EDTHealthTrackRx at LabPortCANDIDA KRUSEINot Grlirznj29.000 - 30.873 ppm 01/18/2025 6:29 AM EDTHealthTrackRx at LabPortCHLAMYDIA ZYPOLWOCIUD728.000 - 31.586 ppm01/18/2025 6:29 AM EDTHealthTrackRx at LabPortCHLAMYDIA TRACHOMATIS Not Fmsnwdjw54.000 - 31.586 ppm01/18/2025 6:29 AM EDTHealthTrackRx at LabPort GARDNERELLA KHMZVUOMN846.961 - 24.689 ppm01/18/2025 6:29 AM EDTHealthTrackRx at LabPortGARDNERELLA VAGINALISNot Lglpvbyz62.961 - 24.689 ppm01/18/2025 6:29 AM EDTHealthTrackRx at LabPortMEGASPHAERA (TYPES 1, 2)019.961 - 24.689 ppm 01/18/2025 6:29 AM EDTHealthTrackRx at LabPortMEGASPHAERA (TYPES 1, 2)Not Sxohwneo76.961 - 24.689 ppm01/18/2025 6:29 AM EDTHealthTrackRx at LabPort NEISSERIA FTOYSHXRWQB273.000 - 32.587 ppm01/18/2025 6:29 AM EDTHealthTrackRx at LabSt. [facility] HospitalNEISSERIA GONORRHOEAENot Rktyzhch13.000 - 32.587 ppm01/18/2025 6:29 AM EDTHealthTrackRx at LabPortTRICHOMONAS GPGMEVVMG112.000 - 31.995 ppm 01/18/2025 6:29 AM EDTHealthTrackRx at LabPortTRICHOMONAS VAGINALISNot Iewzqghg90.000 - 31.995 ppm01/18/2025 6:29 AM EDTHealthTrackRx at LabPort MYCOPLASMA KINRIJISOV321.961 - 24.689 ppm01/18/2025 6:29 AM EDTHealthTrackRx at LabPortMYCOPLASMA GENITALIUMNot Imrjkelo71.961 - 24.689 ppm01/18/2025 6:29 AM EDTHealthTrackRx at LabPortSpecimen (Source)Anatomical Location / LateralityCollection Method / VolumeCollection TimeReceived TimeTissue 01/17/2025 12:58 PM EDT01/18/2025 2:01 AM EDT Narrative Authorizing ProviderResult TypeResult StatusCorey Milton DOLAB BLOOD ORDERABLES Final ResultPerforming OrganizationAddressCity/State/ZIP CodePhone Number [facility] [address] [place] [address] from Last 3 Months Insurance Care Teams Team MemberRelationshipSpecialtyStart DateEnd Date Murphy Harman MD [address] [place] [address] PCP - GeneralFamily Medicine08/25/23
--- OUTSIDE RECORDS SUMMARY | 2025-03-28 10:07 | XMS_ITS | Patient Health Record ---
Author Organization [facility] [place] Address [address] [place] [address] Care Team Providers Care Senior Finance Manager Name Role Phone Markel Harman Primary Care Provider Allergies No Known Allergies Results Component Value Reference Range Notes RUBELLA AB IGG Reviewed date:12/11/2024 01:43:27 PM Interpretation: Performing Lab: Notes/Report: [facility] , Rubella Antibodies, IgG 0.91 Immune >0.99 inde x A second sample should be collected and tested no less than 2-4 weeks. Non-immune <0.90 Equivocal 0.90 - 0.99 Immune >0.99 Performed at: [facility] [address] [id number] Yarn Salvager: Jorge A Calderon PhD, Phone: [phone] Performing Lab: see note - [facility] LBHIV Ab/p24 Ag with Reflex Reviewed date:12/11/2024 01:43:27 PM Interpretation: Performing Lab: Notes/Report: [facility] ,HIV Ab/p24 Ag ScreenNon ReactiveNon Reactive HIV-1/HIV-2 antibodies and HIV-1 p24 antigen were NOT detected. There is no laboratory evidence of HIV infection. HIV Negative Performed at: [facility] [address] [id number] Yarn Salvager: Jorge A Calderon PhD, Phone: [phone] Performing Lab:see note - [facility] LBRapid Plasma Reagin, Quant Reviewed date:12/11/2024 01:43:27 PM Interpretation: Performing Lab: Notes/Report: [facility] ,Rapid Plasma Reagin, QuantNon ReactiveNonRea<1:1 titer Please Note: This test does not meet current guidelines for screening and diagnosis of syphilis. This test is intended for following treatment response in patients being treated for syphilis infection. To screen for syphilis infection, a reflex cascade that includes both RPR and a treponema-specific assay should be utilized, such as Treponema pallidum (Syphilis) Screening [place] (683854) or Rapid Plasma Reagin (RPR) Test With Reflex to Quantitative RPR and Confirmatory Treponema pallidum Antibodies (370240). Performed at: [address] [id number] Yarn Salvager: Jorge A Calderon PhD, Phone: [phone] Performing Lab:[facility] LBHCV Antibody RFX to Quant PCR Reviewed date:12/11/2024 01:43:27 PM Interpretation: Performing Lab: Notes/Report: [facility] ,HCV AbNon ReactiveNon ReactiveInterpretation:Comment. Not infected with HCV unless early or acute infection is suspected (which may be delayed in an immunocompromised individual), or other evidence exists to indicate HCV infection. Performed at: [address] [id number] Yarn Salvager: Jorge A Calderon PhD, Phone: Doormen. Performing Lab:see [facility]soPort[facility] LBHBsAg Screen Reviewed date:12/11/2024 01:43:27 PM Interpretation: Performing Lab: Notes/Report: [facility] ,HBsAg ScreenNegativeNegative Performed at: [address] [id number] Yarn Salvager: Jorge A Calderon PhD, Phone: Doormen. Performing Lab:see [facility]soPort[facility] LBUrine Culture, Routine Reviewed date:12/12/2024 08:28:51 AM Interpretation: Performing Lab: Notes/Report: [facility] ,Urine Culture, RoutineSee Below For Report Urine Culture, Routine Urine Culture, RoutineNo growth Urine Culture, Routine Urine Culture, RoutinePerformed at: [facility] Urine Culture, Routine Urine Culture, [address] [place] [id number] Urine Culture, Routine Urine Culture, RoutineLab Director: Jorge A Calderon PhD, Phone: [phone] Urine Culture, Routine Performing Lab:see note LC - [facility] LB SEE REPORT - Liquid Loader Id information not found for OBX-specific outsoles channel opener legend CBC AUTO DIFF Reviewed date:03/21/2025 02:19:25 PM Interpretation: Performing Lab: Notes/Report: [facility] ,White Blood Count6.34.0-11.0 10 3/uLRed Blood Count3.414.20-5.40 10 6/uL Fsyghfpdpt86.712.0-16.0 g/hEDesyqijgdj61.436.0-48.0 %Mean Corpuscular Aksrxw71.1 81.0-99.0 fLMean Corpuscular Ofhclabkwj45.426.7-34.0 pgMean Corpuscular HGB Conc 35.229.9-35.2 g/dLRed Cell Distribution Width12.911.0-15.0 %Platelet Fwbqw726 150-450 10 3/uLMean Platelet Volume8.89.5-13.5 fLNeutrophils Percent Auto64.0 43.0-75.0 %Lymphocytes Percent Auto27.520.5-60.0 %Monocytes Percent Auto6.81.7- 12.0 %Eosinophils Percent Auto0.60.9-7.0 %Basophils Percent Auto0.50.2-2.0 % Immature Granulocytes Pct Auto0.60.0-0.5 %Neutrophils Absolute Auto4.11.4-6.5 10 3/uLLymphocytes Absolute Auto1.71.2-3.8 10 3/uLMonocytes Absolute Auto0.40.3-0.8 10 3/uLEosinophils Absolute Auto0.00.0-0.7 10 3/uLBasophils Absolute Auto0.00.0- 0.1 10 3/uLImmature Granulocytes Abs Auto0.040.00-0.03 10 3/uLPerforming Lab:see noteML - [facility] LBGlucose 1 Hour Reviewed date:03/21/2025 02:19:25 PM Interpretation: Performing Lab: Notes/Report: [facility] ,Glucose 1 Rtmu454<130 mg/dLPerforming Lab:see noteML - [facility] LB Type and Screen Reviewed date:12/10/2024 08:02:56 PM Interpretation: Performing Lab: Notes/Report: [facility] ,Blood TypeO PositiveAntibody ScreenNEGATIVEGLYCOHEMOGLOBIN A1C Reviewed date:12/10/2024 08:02:56 PM Interpretation: Performing Lab: Notes/Report: [facility] ,Glycohemoglobin A1C5.14.5-6.2 % ADA RECOMMENDED LIMIT 4.0 - 6.0 ADA THERAPEUTIC TARGET < 7.0 ACTION SUGGESTED > 7.0 Estimated Average Umjsush438Cwvbsdjmnz Lab:see noteML - [facility] LB DRUG SCREEN RAPID (URINE) Reviewed date:12/10/2024 08:02:56 PM Interpretation: Performing Lab: Notes/Report: [facility] ,Cannabinoid Screen UrineNEGATIVENEGATIVEPhencyclidine Screen UrineNEGATIVE NEGATIVECocaine Screen UrineNEGATIVENEGATIVEMethamphetamines Screen Urine NEGATIVENEGATIVEOpiate Screen UrineNEGATIVENEGATIVEAmphetamine Screen Urine NEGATIVENEGATIVEBenzodiazepines Screen UrineNEGATIVENEGATIVETricyclic Antidepressant UrineNEGATIVENEGATIVEMethadone Screen UrineNEGATIVENEGATIVE Barbiturates Screen UrineNEGATIVENEGATIVEOxycodone Screen UrineNEGATIVENEGATIVE Buprenorphine Screen UrineNEGATIVENEGATIVE DRUG CLASS TEST SYSTEM CUT-OFF CONCENTRATIONS ARE FOLLOWS: AMP (Amphetamine): 500 ng/mL BAR (Barbiturates): 200 ng/mL BZO (Benzodiazepines): 150 ng/mL BUP (Buprenorphine): 10 ng/mL MAK (Cocaine): 150 ng/mL mAMP (Methamphetamine): 500 ng/mL MTD (Methadone): 200 ng/mL OPI (Opiates): 100 ng/mL OXY (Oxycodone): 100 ng/mL PCP (Phencyclidine): 25 ng/mL THC (Cannabinoids): 50 ng/mL TCA (Trycyclic Antidepressants): 300 ng/mL Performing Lab:see noteML - [facility] LBCBC AUTO DIFF Reviewed date:12/10/2024 08:02:56 PM Interpretation: Performing Lab: Notes/Report: [facility] ,White Blood Count6.14.0-11.0 10 3/uLRed Blood Count4.154.20-5.40 10 6/uL Nzvfthwwgp09.712.0-16.0 g/aMRmlodrnjte58.636.0-48.0 %Mean Corpuscular Cjincl11.2 81.0-99.0 fLMean Corpuscular Ghsipyunst70.626.7-34.0 pgMean Corpuscular HGB Conc 34.729.9-35.2 g/dLRed Cell Distribution Width12.711.0-15.0 %Platelet Gqkdc143 150-450 10 3/uLMean Platelet Volume8.89.5-13.5 fLNeutrophils Percent Auto55.9 43.0-75.0 %Lymphocytes Percent Auto35.320.5-60.0 %Monocytes Percent Auto6.91.7- 12.0 %Eosinophils Percent Auto1.10.9-7.0 %Basophils Percent Auto0.50.2-2.0 % Immature Granulocytes Pct Auto0.30.0-0.5 %Neutrophils Absolute Auto3.41.4-6.5 10 3/uLLymphocytes Absolute Auto2.21.2-3.8 10 3/uLMonocytes Absolute Auto0.40.3-0.8 10 3/uLEosinophils Absolute Auto0.10.0-0.7 10 3/uLBasophils Absolute Auto0.00.0- 0.1 10 3/uLImmature Granulocytes Abs Auto0.020.00-0.03 10 3/uLPerforming Lab:see noteML - [facility] Reason For Referral No Information Medications Medication SIG (Take, Route, Frequency, Duration) Notes Start Date End Date Status Prenat RH-Ihi-Zphrcrbmopyc-FA 0.6-0.4 MG 1 table t Orally Once a day Active Social History Tobacco Use: Social History Observation Description Date Details (start date - stop date) Never Smoker NA - NA Tobacco Control (Standard) Question Answer Notes Tobacco use: Nonsmoker AUDIT-C (Standard) Question Answer Notes Did you have a drink containing alcohol in the p ast year? Yes How often did you have six or more drinks on one occasion in the past year?Less than monthly (1 point)How many drinks did you have on a typical day when you were drinking in the past year?1 or 2 drinks (0 point)How often did you have a drink containing alcohol in the past year?Monthly or less (1 point)Points2 InterpretationNegative Problems Problem Type SNOMED Code ICD Code Onset Dates Problem Status W/U Status Risk Notes Problem Well adult (043826323) Well adult (Z00.00 ) ActiveconfirmedProblemGastroenteritis (23806635)Gastroenteritis (K52.9)Active confirmed Vital Signs Blood pressure diastolic 78 mm Hg 03/28/2025 Hifvoe97 in03/28/2025lood pressure kqholzac475 mm Hg03/28/20254758Euehsn273.0 lbs 03/28/2025BMI21.89 kg/m203/28/2025 Encounters Encounter Location Date Provider Diagnosis [facility] [address] [place] [address] 03/28/2025 Markel Harman Well adult Z00.0 0 [facility] [address] [place] [address] 09/23/2024 Markel Harman Assessments Encounter Date Diagnosis (ICD Code) Assessment Notes Treatment Notes Treatment Clinical Notes Section Notes 03/28/2025 Well adult (ICD-10 - Z00.00) Plan Of Treatment Pending Test Test Name Order Date HEMOGLOBIN A1C (GLYCO) 03/28/2025 LIPID PANEL (CHOL/TRIG/HDL/LDL) 03/28/20 25 THYROID PANEL (T4/TSH/FREE T3) 5 Insurance Providers Payer Name Payer Address Payer Phone Subscriber Number Group Number Insured Name Patient Relationship to Insured Coverage Start Date Coverage End Date [employer] [address] [place] [address] [id number] Amilcar Wilson - patient is the spouse of the insured Medical (General) History Surgical History Surgery Date(Month/Year) denies Hospitalization History Reason Date(Month/Year) denies
--- OUTSIDE RECORDS SUMMARY | 2025-03-28 10:07 | XMS_ITS | Encounter Summary ---
Author Organization [facility] Address [address] [place] [address] Care Team Providers Care Polysomnographer Name Role Phone Murphy Harman MD Primary Care Provider [phone] Encounter Details DateTypeDepartmentCare Team (Latest Contact Info)Volqorjnezg37/07/2025amboo flowsheet NOMBrendon MURPHY [address] [place] [address] Ida Benítez, DRIVER/[employer] [address] [place] [address] Social History Tobacco UseTypesPacks/DayYears UsedDateSmoking Tobacco: NeverAlcohol UseStandard Drinks/WeekCommentsYes0 (1 standard drink = 0.6 oz pure alcohol) Estimated Date of KzuwdbtfQavhsakeXpm53/18/2026Based on last menstrual period of 09/18/2024Sex and Gender InformationValueDate RecordedSex Assigned at BirthFemale 08/18/2023 8:42 AM EDTLegal WqdKkvduz22/15/2023 7:31 PM EDTGender IdentityFemale 08/18/2023 8:42 AM EDTSexual QhczjuibswaYowkuivs45/12/2024 8:42 AM EDTdocumented as of this encounter Plan of Treatment DateTypeDepartmentCare Team (Latest Contact Info)Hwxkmqphjfc87/28/2025 1:40 PM EDTRoutine NOMBrendon MURPHY [address] [place] [phone] Monica Ernandez PA [address] [place] [address] 09/05/2025 8:30 AM EDTOffice Visit NOMS Juliet MURPHY [address] [place] [address] Garcia Rose DO [address] [place] [address] documented as of this encounter Visit Diagnoses Not on filedocumented in this encounter Care Teams Team MemberRelationshipSpecialtyStart DateEnd Date Murphy Harman MD [address] [facility] [place] [address] PCP - GeneralFamily Medicine08/25/23documented as of this encounter
--- OUTSIDE RECORDS SUMMARY | 2025-03-28 10:11 | XMS_ITS | CCD ---
Author Organization [facility] Care Team Providers Care Poultry Farmer Egg Name Role Phone MILTON ., DR WOLFF Admitting Unavailable MILTON ., DR WOLFF Attending Unavailable JO-ANN WILSON Primary Care Unavailable MILTON ., DR WOLFF Consulting Unavailable Murphy Harman MD Primary Care Provider [phone] Murphy Harman MD Primary Care Provider [phone] MARIELLA ROSE Attending Unavailable MARIELLA ROSE Attending Unavailable MARIELLA ROSE Attending Unavailable MARIELLA ROSE Referring Unavailable MARIELLA ROSE Attending Unavailable IDA BENÍTEZ Attending Unavailable Allergies Allergy ClassificationReported Allergen(s)Allergy TypeDate of OnsetReaction(s) Facility (1 source)ceftibutenDrug Nldxzdc38-87-5572Qcl [facility] Repository Medications Current Medications MedicationDrug Class(es)DatesSig (Normalized)Sig (Original)calcitriol 0.06342 mg oral capsule (8 sources)Vitamin D3 Analog End: 91-12-6156xejvuzikzj (Rocaltrol) 0.25 MCG capsule 02/14/2025 Discontinued Norgestimate-Ethinyl Estradiol (1 source)Start: 49-84-4358glpd 1 tablet by mouth once dailyNorgestimate-Ethinyl Estradiol Active 1 TAB PO Daily October 05, 2023 12:00amondansetron 4 mg disintegrating oral tablet (1 source)Serotonin-3 Receptor AntagonistStart: 11-07-2024 End: 99-44-9516ezih 1 tablet by mouth every six hours as needed for nausea and vomiting and nausea and nauseaondansetron ODT (Zofran-ODT) 4 MG disintegrating tablet Indications: Nausea Take 1 tablet (4 mg) bymouth every 6 (six) hours if needed for nausea or vomiting 30 tablet 2 11/07/2024 12/07/2024 ActivePrenatal MV-Min-Fe Fum-FA-DHA ( 1 PO) (11 sources) MV-Min-Fe Fum-FA-DHA ( 1 PO) Active Completed/Discontinued Medications MedicationDrug Class(es)DatesSig (Normalized)Sig (Original) Control (1 source)Start: 12-06-2020 End: 48-92-2665Sfjts Control Discontinued December 06, 2020 12:00am October 05, 2023 10:54amMultiple Vitamin (multivitamin) tablet (6 sources) End: 18-45-6922ypud 1 tablet by mouth once dailyMultiple Vitamin (multivitamin) tablet Take 1 tablet by mouth Daily 12/20/2024 Discontinuedtake 1 tablet by mouth once dailyMultiple Vitamin (multivitamin) tablet Take 1 tablet by mouth Daily Active Problems Problem ClassificationProblemDateDocumented DateEpisodic/ChronicImmunizations and screening for infectious disease (1 source)Encounter for screening for human papillomavirus (HPV); Translations: [ENC SCREENING HUMAN PAPILLOMAVIRUS]Onset: 39-44-6911NanygjvoGynszxmlo disorders (2 sources)Amenorrhea; Translations: [Amenorrhea, unspecified]34-30-9290Ynipyhv Other endocrine disorders (1 source)Hypoglycemia; Translations: [Hypoglycemia, unspecified]05-20-2023 ChronicOther and delivery including normal (10 sources); Translations: [Encounter for supervision of normal , unspecified, unspecified trimester]76-81-9403QckjrhwnMjuam screening for suspected conditions (not mental disorders or infectious disease) (8 sources)Encounter for screening for malignant neoplasm of cervix; Translations: [Patient encounter status]Onset: 14-70-1599ZtcsjswfKmgwgzur codes; unclassified (2 sources)Gestation period, 13 weeks; Translations: [13 weeks gestation of ]96-13-9323IulthykcFkyucpql codes; unclassified (2 sources)Gestation period, 17 weeks; Translations: [17 weeks gestation of ]25-85-2270GzvdojtlQwpubehm codes; unclassified (2 sources)Gestation period, 21 weeks; Translations: [21 weeks gestation of ]90-61-1241MisccwqmWygrcfwh codes; unclassified (2 sources)Gestation period, 25 weeks; Translations: [25 weeks gestation of ]01-31-5563CysevwxzOdmyowz (1 source)Vasovagal syncope; Translations: [Syncope and collapse]05-20-2023 Episodic Results Test NameValueInterpretationReference RangeFacilityUrinalysis macro (dipstick) panel (U)on 46-92-5127Cataqevcf, UANegativeNegative - 4(70) +++ mg/dLNOMS HealthcareBlood, UANegativeNegative - 50 Ankit/mcLNOMS HealthcareClarity, UAClear NOMS HealthcareColor, UAYellowNOMS HealthcareGlucose, UANegativeNegative - 2000(110) ++++ mg/dLNOMS HealthcareInterpretation and review of laboratory resultsNormalNOMS HealthcareKetones, UANegativeNegative - 160(16) ++++ mg/dLNOMS HealthcareLeukocytes, UANegativeNegative - 500+++ Guy/mcLNOMS HealthcareNitrite, UANegativeNegative - PositiveNOMS HealthcarepH, UA6.55 - 9N[facility] Healthcare Protein, UANegativeNegative - 2000(20) ++++ mg/dLNOMS HealthcareSpec Grav, UA 1.0051 - 1.03NOMS HealthcareUrobilinogen, UA0.20.2 - 12 mg/dLNOMS HealthcareNOMS HealthcareUS OB 14+ WEEKS ANATOMY SCANon 66-80-3949SU OB 14+ WEEKS ANATOMY SCAN FINDINGS: A [...] menstrual period. TRANSCRIBED BY: ELECTRONICALLY SIGNED BY: Grisel Ghotra AvailableComment on above:Order Comment: US OB ANATOMY SINGLE W US OB CERVICAL LENGTH Estimated Date of Delivery: 06/25/25 Gestational Age as of 01/17/2025: 35k9lOrcvlawouh macro (dipstick) panel (U)on 86-34-6745Jjxzdpfwf, UANegativeNegative - 4(70) +++ mg/dLNOMS HealthcareBlood, UANegativeNegative - 50 Ankit/mcLNOMS HealthcareClarity, UAClearNOMS Healthcare Color, UAYellowNOMS HealthcareGlucose, UANegativeNegative - 2000(110) ++++ mg/dL NOMS HealthcareInterpretation and review of laboratory resultsNormalNOMS HealthcareKetones, UANegativeNegative - 160(16) ++++ mg/dLNOMS Healthcare Leukocytes, UANegativeNegative - 500+++ Guy/mcLNOMS HealthcareNitrite, UA NegativeNegative - PositiveNOMS HealthcarepH, UA65 - 9NOMS HealthcareProtein, UA NegativeNegative - 2000(20) ++++ mg/dLNOMS HealthcareSpec Grav, UA1.011 - 1.03 NOMS HealthcareUrobilinogen, UA1.00.2 - 12 mg/dLNOMS HealthcareNOMS Healthcare RECURRENT VAGINITIS (HTRX)on 91-26-9870UZUVVSJSB COKCBCJ6OUTG Healthcare ATOPOBIUM VAGINAENot detectedNOMS HealthcareBVAB 2,3 (BACTERIAL VAGINOSIS ASSOCIATED BACTERIA 2, 3); MOBILUNCUS ABQ6VFBS HealthcareBVAB 2,3 (BACTERIAL VAGINOSIS ASSOCIATED BACTERIA 2, 3); MOBILUNCUS SPPNot detectedNOMS Healthcare LISA ALBICANS, PARAPSILOSIS, DTHYIOJBUK1XIKG HealthcareCANDIDA ALBICANS, PARAPSILOSIS, TROPICALISNot detectedNOMS HealthcareCANDIDA ZDVJWENX9SOQI HealthcareCANDIDA GLABRATANot detectedNOMS HealthcareCANDIDA NCLEBW5IJGY HealthcareCANDIDA KRUSEINot detectedNOMS HealthcareCHLAMYDIA OYLADBCSWAU6EQAB HealthcareCHLAMYDIA TRACHOMATISNot detectedNOMS HealthcareGARDNERELLA VAGINALIS0 NOMS HealthcareGARDNERELLA VAGINALISNot detectedNOMS HealthcareMEGASPHAERA (TYPES 1, 2)0NOMS HealthcareMEGASPHAERA (TYPES 1, 2)Not detectedNOMS Healthcare MYCOPLASMA AEAFDQEHSV6RXOK HealthcareMYCOPLASMA GENITALIUMNot detectedNOMS HealthcareNEISSERIA MRXWUWIRNBR7SEVT HealthcareNEISSERIA GONORRHOEAENot detected NOMS HealthcareTRICHOMONAS MNLKPTJDQ1SZIA HealthcareTRICHOMONAS VAGINALISNot detectedNOMS HealthcareNOMS HealthcareUrinalysis macro (dipstick) panel (U)on 50-26-5873Zcmzatzqq, UANegativeNegative - 4(70) +++ mg/dLNOMS HealthcareBlood, UANegativeNegative - 50 Ankit/mcLNOMS HealthcareClarity, UAClearNOMS Healthcare Color, UAYellowNOMS HealthcareGlucose, UANegativeNegative - 1999(110) ++++ mg/dL [facility] HealthcareInterpretation and review of laboratory resultsAbnormalNOHI HealthcareKetones, UANegativeNegative - 160(16) ++++ mg/dLNOHI Healthcare Leukocytes, UA2+Negative - 500+++ Guy/mcLNOHI HealthcareNitrite, UANegative Negative - PositiveNOMS HealthcarepH, UA65 - 9NOMS HealthcareProtein, UANegative Negative - 2000(20) ++++ mg/dLNOHI HealthcareSpec Grav, UA1.021 - 1.03NOMS HealthcareUrobilinogen, UA0.20.2 - 12 mg/dLNOHI HealthcareNOHI Healthcare Urinalysis macro (dipstick) panel (U)on 99-03-8462Mheokbvly, UANegativeNegative - 4(70) +++ mg/dLNOMS HealthcareBlood, UANegativeNegative - 50 Ankit/mcLNOMS HealthcareClarity, UAClearNOMS HealthcareColor, UAYellowNOMS HealthcareGlucose, UANegativeNegative - 1999(110) ++++ mg/dLNOHI HealthcareInterpretation and review of laboratory resultsNormalNOMS HealthcareKetones, UANegativeNegative - 160(16) ++++ mg/dLNOHI HealthcareLeukocytes, UANegativeNegative - 500+++ Guy/mcL NOMS HealthcareNitrite, UANegativeNegative - PositiveNOHI HealthcarepH, UA6.55 - 9NOMS HealthcareProtein, UANegativeNegative - 2000(20) ++++ mg/dLLONE PEAK [facility] Healthcare Spec Grav, UA1.0151 - 1.03NOHI HealthcareUrobilinogen, UA0.20.2 - 12 mg/dLNOCenterPointe HospitalNOHI HealthcareALL CBC WITH AUTO DIFFon 27-07-3195CUWUQZVQB ABSOLUTE SNVO6HMLTCenterPointe HospitalBasophils/100 WBC (Bld)0.5 %0.2 - 2.0 %[facility]OMLiberty Hospital Eosinophils/100 WBC (Bld)1.1 %0.9 - 7.0 %[facility] FultonErythrocyte distribution width (RBC) [Ratio]12.7 %11.0 - 15.0 %NOMLiberty HospitalHematocrit (Bld) [Volume fraction]36.6 %36.0 - 48.0 %[facility] FultonHemoglobin (Bld) [Mass/Vol]12.7 g/dL 12.0 - 16.0 g/dLFulton Medical Center- FultonIMMATURE GRANULOCYTES ABS AUTO0.02NOCenterPointe Hospital Immature granulocytes/100 WBC (Bld)0.3 %0.0 - 0.5 %[facility] FultonInterpretation and review of laboratory resultsAbnormalNOCenterPointe HospitalLYMPHOCYTES ABSOLUTE AUTO2.2NOMS [facility] HospitalLymphocytes/100 WBC (Bld)35.3 %20.5 - 60.0 %[facility] InstituteH (RBC) [Entitic mass]30.6 pg26.7 - 34.0 pgFreeman Heart InstituteHC (RBC) [Mass/Vol]34.7 g/dL29.9 - 35.2 g/dLFreeman Heart InstituteV (RBC) [Entitic vol]88.2 fL 81.0 - 99.0 fLNOCenterPointe HospitalMONOCYTES ABSOLUTE AUTO0.4NOCenterPointe Hospital Monocytes/100 WBC (Bld)6.9 %1.7 - 12.0 %NOMLiberty HospitalNEUTROPHILS ABSOLUTE AUTO 3.4NOCenterPointe HospitalNeutrophils/100 WBC (Bld)55.9 %43.0 - 75.0 %[facility] Platelet mean volume (Bld) [Entitic vol]8.8 fLLow9.5 - 13.5 fLHeartland Behavioral Health Services EO #0.1NOMS [facility]beigh HospitalTB CQO360MLJDPerry County Memorial Hospital RBC4.15LowNOPerry County Memorial Hospital WBC6.1NOMS HealthcareCLINISYNCNINTEGRIS B[facility] HealthcareHCG ( test) Ql (U)on 69-06-6735Ldhjqsqajyroqd and review of laboratory resultsNormalNOCenterPointe Hospital Preg Test, UrPositiveNegativeNOWright Memorial Hospital HealthcareUS OB TRANSVAGINALon 06-18-0860JX OB TRANSVAGINALEXAM: US OB TRANSVAGINAL HISTORY: Dating. COMPARISON: None [...] II, MD, PHD at 19-Nov-2024 08:41:19 AM [facility] TeleradiologyNormalNot AvailableComment on above:Order Comment: US OB TRANSVAGINAL No LMP recorded.Urinalysis macro (dipstick) panel (U)on 09-25-0418Cpimubfgl, UA NegativeNegative - 4(70) +++ mg/dLNOHI HealthcareBlood, UAPositiveNegative - 50 Ankit/[facility] HealthcareComment on above:traceClarity, UAClearNOMS Healthcare Color, UAYellowNOHI HealthcareGlucose, UANegativeNegative - 1999(110) ++++ mg/dL [facility] FultonInterpretation and review of laboratory resultsNormalNOHI HealthcareKetones, UANegativeNegative - 160(16) ++++ mg/dLLONE [facility]AK [facility] Healthcare Leukocytes, UANegativeNegative - 500+++ Guy/mcLFulton Medical Center- FultonNitrite, UA NegativeNegative - PositiveNOHI HealthcarepH, UA75 - 9NOHI HealthcareProtein, UA NegativeNegative - 2000(20) ++++ mg/dLLONE PEAK HOSPITAL HealthcareSpec Grav, UA1.011 - 1.03 [facility] FultonUrobilinogen, UA0.20.2 - 12 mg/dLScotland Memorial Hospital IGP,APTIMA HPV,AGE GDLNon 41-63-0249XKO GDLN ACOG TESTINGNote.[facility] Comment on above:TESTS RESULT FLAG UNITS REF RANGE LAB Clinician Provided Cytology Information Source.............Cervix;Endocervix No. of containers..01 ThinPrep Vial Age Algo ACOG Lulu... -06 07 FLAG LEGEND: L-Low Normal,H-High Normal,LL-Alert Low,HH-Alert High <-Panic Low,>-Panic High,A-Abnormal,AA-Critical Abnormal Performed at: 01 =G [facility] [address] [place] [address] Karolyn Mcallister MD, IGP, RFX APTIMA HPV ASCUNote.NOMS HealthcareComment on above:TESTS RESULT FLAG UNITS REF RANGE LAB DIAGNOSIS: 02 NEGATIVE FOR INTRAEPITHELIAL LESION OR MALIGNANCY. Specimen adequacy: 02 Satisfactory for evaluation. Endocervical and/or squamous metaplastic cells (endocervical component) are present. Performed by: Eloise Ann, Product Advisor ([facility]) . 02 Note: Note 02 The Pap [...] <-Panic Low,>-Panic High,A-Abnormal,AA-Critical Abnormal Performed at: 02 WB [facility] [address] [facility], [place] [address] Karolyn Mcallister MD, Performed at: =G - [facility] [address], [place] [id number] Transition Social Worker: Karolyn Mcallister MD, Phone: [phone] Performed at: - [facility] [address] [place], [place] [id number] Transition Social Worker: Karolyn Mcallister MD, Phone: [phone] BRUSH-SPATULA CERVIX ENDOCERVIX [facility] ACOG PANEL 2: 21 to 29on 08-29-2022..NormalLima Memorial HospitalComment on above:Performed By: #### [id number] #### [facility] [address] [place] [address] Dr. Mariama Salvador Gdln ACOG Rpvmabb17-59ZrvueoWkqUniversity Hospitals Samaritan Medical CenterComment on above:Performed By: #### [id number] #### [facility] [address] [place] [address] Dr. Mariama LegerDIAGNOSIS:CommentMetroHealth Parma Medical Center on above: Result Comment: NEGATIVE FOR INTRAEPITHELIAL LESION OR MALIGNANCY.Performed By: #### [id number] #### [facility] [address] [place] [address] Dr. Mariama LegerMethodology:CommentMetroHealth Parma Medical Center on above: Result Comment: This liquid based ThinPrep(R) pap test was screened with the use of an image guided system.Performed By: #### [id number] #### [facility] [address] [place] [address] Dr. Mariama LegerNote:CommentMetroHealth Parma Medical Center on above:Result Comment: The Pap smear is a screening test designed to aid in the detection of premalignant and malignant conditions of the uterine cervix. It is not a diagnostic procedure and should not be used as the sole means of detecting cervical cancer. Both false-positive and false-negative reports do occur. .Performed By: #### [id number] #### [facility] [address] [place] [address] Dr. Mariama LegerPerformed by:CommentMetroHealth Parma Medical Center on above: Result Comment: Barby Rogel, Product Advisor (ASCP)Performed By: #### [id number] #### [facility] [address] [place] [address] Dr. Mariama LegerRefosmani Criteria:CommentMetroHealth Parma Medical Center on above:Result Comment: The HPV DNA reflex criteria were not met with this specimen result therefore, no HPV testing was performed. .Performed By: #### [id number] #### [facility] [address] [place] [address] Dr. Mariama LegerSpecimen adequacy:CommentMetroHealth Parma Medical Center on above:Result Comment: Satisfactory for evaluation. Endocervical and/or squamous metaplastic cells (endocervical component) are present.Performed By: #### [id number] #### [facility] [address] [place] [address] Dr. Leslie [facility] 12 lead ECGon 77-59-7499MTR 12 lead ECGBARNEY CHILDREN'S [place] [address] Electrocardiograph Report Signed Patient: Jessica Valle MR#: [id number] 36 : 2000 Acct:[id number] Age/Sex: 20 / F ADM Date: 12/06/20 Loc: ER Room: Type: [facility] ER Attending Dr: Ordering Provider: Nabil [...] Byrd DO 12/06/20 1748 Signed By: 12/08/20 0946Main Campus Medical CenterGlucose Poct Glucometerson 95-18-3802Pvyywsy [Mass/Vol]113 mg/dLMain Campus Medical CenterComment on above:Result Comment: Random Glucose Reference Range is dependent on time and content of last meal. Glucose of more than 200 mg/dL in a nonstressed, ambulatory subject supports the diagnosis of Diabetes Mellitus. PERFORMED BY: [place] [address] PATHOLOGIST FURNACE MECHANIC ALISIA DIAL M.D.Performed By: #### GLULS #### Point of Care testing ,Glucose [Mass/Vol]65 mg/dLMain Campus Medical CenterComment on above:Result Comment: Random Glucose Reference Range is dependent on time and content of last meal. Glucose of more than 200 mg/dL in a nonstressed, ambulatory subject supports the diagnosis of Diabetes Mellitus. PERFORMED BY: [place] [address] PATHOLOGIST FURNACE MECHANIC ALISIA DIAL M.D.Performed By: #### GLULS #### Point of Care testing ,HCG,Urineon 00-97-6209Plww HCG ( test) Ql (U)NegativeNoLima Memorial HospitalComment on above:Result Comment: PERFORMED BY: [place] [address] PATHOLOGIST FURNACE MECHANIC ALISIA DIAL M.D.Performed By: #### UHCG #### [address] Vital Signs Date TimeVital SignValuePerforming TncdwszvuIdkxtlqz81-88-3450 11:30-0400Body mass index (BMI) [Ratio]21.67 kg/o1XqchuektIda Benítez NP Work Phone: [facility]- FultonSazqxsopws32-79-1977 11:30-0400Body wkgalm15.64 kgIda Benítez NP Work Phone: [facility] FultonDehpxhobub09-30-4214 11:30-0400Diastolic blood zhukpiuy02 mm[Hg]Ida Benítez MERCANTILE REPORTER Work Phone: [phone]-[facility]- FultonIxtvigjkxg46-14-8552 11:30-0400Systolic blood pubgujcn272 mm[Hg]Ida Jeyson MERCANTILE REPORTER Work Phone: [phone] [place], [place] [address]Mscgueypft13-26-1978 10:37-0400Body mass index (BMI) [Ratio]20.53 kg/b4Qfcsa Milton DO Work Phone: [phone] [place], [place] [address]Mtnijtcpns91-94-1348 10:37-0400Body ruzrdx28.24 kgCorey Milton DO Work Phone: [phone] [place], [place] 5539509-09-2025 10:37-0400Diastolic blood mm[Hg]Mariella Milton DO Work Phone: [phone] [place], [place] [address]Pcdzwjvkid48-91-3667 10:37-0400Systolic blood iuxvxsmg873 mm[Hg]Mariella Milton DO Work Phone: [phone] [place], [place] [address]Qnqtplvkqn01-57-3625 10:54-0400Body mass index (BMI) [Ratio]20.19 kg/t9Mxhmy Milton DO Work Phone: [phone] [place], [place] 5539508-12-2025 10:54-0400Body fnhpsi46.24 kgCorey Milton DO Work Phone: [phone] [place], [place] [address]Rycczthjoa63-31-5811 10:54-0400Diastolic blood fzvezjtk71 mm[Hg]Mariella Milton DO Work Phone: [phone] [place], [place] [address]Nwflddugzb94-79-9812 10:54-0400Systolic blood mm[Hg]Mariella Milton DO Work Phone: [phone] [place], [place] 5539507-15-2025 09:29-0400Body mass index (BMI) [Ratio]19.69 kg/q4Hzgal Milton DO Work Phone: [phone])[facility] [place], [place] [address]Ztburzsxpe28-87-1459 09:29-0400Body cohlwn36.74 kgCorey Milton DO Work Phone: [phone] [place], [place] 5539507-15-2025 09:29-0400Diastolic blood ojtydepy76 mm[Hg]Mariella Coheno DO Work Phone: [facility] FultonQxqhzfwscq15-35-5560 09:29-0400Systolic blood mm[Hg]Mariella Milton DO Work Phone: [facility] FultonNqrfdofkqf67-00-6908 11:00-0400Body mass index (BMI) [Ratio]19.46 kg/m2[facility]06-13-2025 11:00-0400Body dhaozl83.06 kgOzarks Medical Center06-13-2025 11:00-0400Diastolic blood rotagdmu19 mm[Hg][facility]06-13-2025 11:00-0400Systolic blood mm[Hg][facility]04-29-2024 10:53-0400Body height 172.72 cmMer[facility]04-29-2024 10:53-0400Body mass index (BMI) [Ratio]19.2 kg/a9TxtfjwaueMercy Health Allen Hospital04-29-2024 10:53-0400 Body wiycntjgkci591.1 [degF][facility]04-29-2024 10:53-0400Body duqzku47.32 kgMercy Health Allen Hospital04-29-2024 10:53-0400Heart rate98 /[facility]04-29-2024 10:53-0400Respiratory rate18 /[facility]04-29-2024 10:53-0319UwR0% (BldA) [Mass fraction]98 %[facility] Encounters Encounter DateEncounter TypeCare ProviderFacilityStart: 03-14-2025 End: 56-26-8915Jtnmtikenyatta Benítez NP Work Phone: [facility]BGYNStart: 03-14-2025 End: 43-22-0297Trpdljkenyatta Benítez MERCANTILE REPORTER Work Phone: [facility]BGYNStart: 03-14-2025 End: 15-49-0573jyifvewqajTYZQCAYW EBERLYNot AvailableStart: 03-14-2025 End: 90-35-1737Fdpyzrbz flow sheetIda Benítez MERCANTILE REPORTER Work Phone: NOJD [facility] OBGYNComment on above:Second trimester ([facility]); 25 weeks gestation of ([facility]); Diabetes mellitus screeningStart: 02-14-2025 End: 50-69-2861Atrkahmc flow sheetCorey Milton DO Work Phone: NOZX [place] OBGYNComment on above:21 weeks gestation of ([facility]); Second trimester fetus ([facility])Start: 02-14-2025 End: 79-34-2641okzuhdavzbOKMHD FAZIONot AvailableStart: 01-17-2025 End: 78-99-5208Quudkr flowsheetCorey Milton DO Work Phone: [facility]BGYNStart: 01-17-2025 End: 59-05-8315Yhnupu flowsheetCorey Milton DO Work Phone: NOQW [place] [facility]BGYNStart: 01-17-2025 End: 08-97-7796Rmxoligj Result EncounterCorey Milton DO Work Phone: NOCF External Department UnsolicitedStart: 01-17-2025 End: 37-94-0274Maatdnxy preventive med est patient 18-39 yrsCorey Milton DO Work Phone: NOJB [facility] OBGYNComment on above:Second trimester fetus ([facility]); 17 weeks gestation of ([facility]); Screening, , for anatomic survey ([facility])Start: 01-17-2025 End: 42-49-5898igxhyymlfmYJRFK FAZIONot AvailableStart: 12-20-2024 End: 98-90-7649Pzunnw flowsheetCorey Milton DO Work Phone: NOOD BCP OBStart: 12-20-2024 End: 68-98-8977Qywuog flowsheetCorey Milton DO Work Phone: noms BCP OBStart: 12-20-2024 End: 43-11-2300oalkrciouiBXMMZ FAZIONot AvailableStart: 12-20-2024 End: 03-14-3556Fkvkgrfb flow sheetCorey Milton DO Work Phone: noms BCP OBComment on above:Second trimester ([facility]); 13 weeks gestation of ([facility])Start: 12-10-2024 End: 26-64-1714Bkfexofza Result EncounterCorey Milton DO Work Phone: noms External Department UnsolicitedStart: 12-10-2024 End: 45-65-0306Fwaqrxuxs Result EncounterCorey Milton DO Work Phone: noms External Department UnsolicitedStart: 11-18-2024 End: 97-69-2974Qlappf outpatient visit 5 minutesNoms Bcp Ob Milton NurseNOMS BCP OBComment on above:GA: 3n2wKedrr: 11-18-2024 End: 09-48-2917ycjvuuzryoLLPCM FAZIONot AvailableStart: 08-29-2024 End: 85-64-5301Mdyvxvexo Result EncounterCorey Milton DO Work Phone: noms External Department UnsolicitedStart: 08-29-2024 End: 64-85-2333Pwlhlzacd Result EncounterCorey Milton DO Work Phone: noms External Department UnsolicitedStart: 08-29-2024 End: 52-56-7727radiurakzzEIWXF FAZIONot AvailableStart: 10-05-2023 End: 46-03-3263vpmoekvkziPgoubciat [facility] Work Phone: Start: 10-05-2023 End: 06-23-2413Fyjptco encounter procedureUnc Health Physician [facility] Gianni Work Phone: Start: 08-21-2022 End: 84-44-0098mjpfphypxvII MARIELLA MILTON .Facility: Procedures DateProcedureProcedure DetailPerforming ClinicianStart: 73-34-1508Jzswg dip stick/tablet rgnt non-auto w/o micrscpKristina Jeyson MERCANTILE REPORTER Work Phone: Start: 15-95-1617Dabqv dip stick/tablet rgnt non-auto w/o micrscpCorey Milton DO Work Phone: Start: 49-90-6744SOFHFKLYT VAGINITIS (HTRX)Mariella Milton DO Work Phone: Start: 51-23-4830Qkear dip stick/tablet rgnt non-auto w/o micrscpCorey Milton DO Work Phone: Start: 74-93-7347Mwqae dip stick/tablet rgnt non-auto w/o micrscpCorey Milton DO Work Phone: Start: 19-89-8838OWP CBC WITH AUTO DIFFCorey Milton DO Work Phone: Start: 11-18-2024 End: 50-55-1777Rrmgb dip stick/tablet rgnt non-auto w/o micrscpCorey Milton DO Work Phone: Start: 40-17-3026ZCS,APTIMA HPV,AGE GDLNCorey Milton DO Work Phone: Plan of Treatment DateCare ActivityDetailAuthorStart: 09-05-2025 End: 89-79-9030Cbtszxr encounter procedureNOMS BCP OBStart: 04-04-2025 End: 13-03-7784Firefzr encounter qxmakldkm70/28/2025 1:40 PM EDT Routine [facility] [address] [facility] [id number] Monica Ernandez PA [address] [place] [address] [facility] OBGYNStart: 03-14-2025 End: 82-51-3335QDO panel - Blood by Automated countCBC Lab Routine Diabetes mellitus screening Expected: 03/14/2025 (Approximate), Expires: 03/14/2026[facility] Work Phone: comment on above:Expected: 03/14/2025 (Approximate), Expires: 03/14/2026Start: 03-14-2025 End: 82-41-2121Euzrtfxnnvu of glucose 1 hour after glucose challenge for glucose tolerance testGlucose tolerance, 1 hour Lab Routine Diabetes mellitus screening Expected: 03/14/2025 (Approximate), Expires: 03/14/2026NOHI HealthcareComment on above:Expected: 03/14/2025 (Approximate), Expires: 03/14/2026Start: 03-14-2025 End: 30-85-5814Optzgya encounter seynhhmrp98/07/2025 11:20 AM EDT Routine [facility] MURPHY [address] [place] [phone] Ida Benítez, MERCANTILE REPORTER [address] [place] [address] [facility] Chung OBGYNStart: 02-14-2025 End: 19-20-3916Kwzojkh encounter mtxywpspe39/09/2025 10:40 AM EDT Routine [facility] Juliet MURPHY [address] [place] [phone] Mariella Rose DO [address] [place] [address] [facility] Juliet OBGYNStart: 02-14-2025 End: 75-16-0780Sirtifretkrj / ancillary services rrmddckugm67/09/2025 9:30 AM EDT Ancillary Procedure [facility]rendon MURPHY [address] [place] [address] [facility] Juliet OBGYNStart: 01-17-2025 End: 47-74-8612Mrcfx fetoprotein, maternalAlpha fetoprotein, maternal Lab Routine Second trimester fetus ([facility]) 17 weeks gestation of ([facility]) Expected: 01/17/2025 (Approximate), Expires: 04/19/2025[facility] Work Phone: comment on above:Expected: 01/17/2025 (Approximate), Expires: 04/19/2025Start: 01-17-2025 End: 07-71-3328AU for pregnancyUS OB 14+ weeks anatomy scan Imaging Routine Second trimester fetus ([facility]) 17 weeks gestation ofpregnancy ([facility]) Screening, , for anatomic survey ([facility]) Expected: 01/17/2025, Expires: 04/19/2025[facility] HealthcareComment on above:Expected: 01/17/2025, Expires: 04/19/2025Start: 01-17-2025 End: 71-44-0668Oaofugb encounter ueyzchqun91/12/2025 10:20 AM EDT Routine [facility] OB [address] [place] [address] Mariella Rose, DO [address] [place] [address] [facility] BCP OBStart: 12-20-2024 End: 42-76-8968Fmepeqz encounter /15/2025 9:10 AM EDT Routine [facility] [address] [facility] [place] [address] Mariella Rose, DO [address] [place] [address] [facility] BCP OBStart: 11-18-2024 End: 60-44-5424ODJ/RhABO/Rh Lab Routine Missed menses , unspecified gestational age ([facility]) Expected: 11/18/2024 (Approximate), Expires: 11/18/2025[facility] HealthcareComment on above:Expected: 11/18/2024 (Approximate), Expires: 11/18/2025Start: 11-18-2024 End: 63-44-9769Mqhkf type and Indirect antibody screen panel - BloodType and screen Lab Routine Missed menses , unspecified gestational age ([facility]) Expected: 11/18/2024 (Approximate), Expires: 11/18/2025[facility] Work Phone: comment on above:Expected: 11/18/2024 (Approximate), Expires: 11/18/2025Start: 11-18-2024 End: 06-57-6426Vdmtn of abuse panel - Urine by Screen methodRapid drug screen, urine Lab Routine , unspecified gestational age ([facility]) Encounter for supervision of normal first in first trimester ([facility]) Expected: 11/18/2024 (Approximate), Expires: 11/18/2025[facility] HealthcareComment on above: Expected: 11/18/2024 (Approximate), Expires: 11/18/2025acteria identified in Urine by CultureUrine culture Microbiology Routine Missed menses Ordered: 11/18/2024[facility] HealthcareComment on above:Ordered: 11/18/2024BC W Auto Differential panel - BloodCBC and differential Lab Routine Missed menses , unspecified gestational age ([facility]) Ordered: 11/18/2024[facility] HealthcareComment on above:Ordered: 11/18/2024HLAMYDIA TRACHOMATIS (GENITO/STI) CHLAMYDIA TRACHOMATIS (GENITO/STI) Lab Routine Second trimester fetus ([facility]) 17 weeks gestation of ([facility]) Ordered: 01/17/2025[facility] Comment on above:Ordered: 01/17/2025Hemoglobin A1c/Hemoglobin.total in Blood Hemoglobin A1c Lab Routine Missed menses , unspecified gestational age ([facility]) Ordered: 11/18/2024[facility] HealthcareComment on above:Ordered: 11/18/2024 Hepatitis B virus surface Ag [Presence] in Serum or Plasma by Immunoassay Hepatitis B surface antigen Lab Routine Missed menses , unspecified gestational age ([facility]) Ordered: 11/18/2024[facility] HealthcareComment on above: Ordered: 11/18/2024Hepatitis C virus Ab [Presence] in Serum or Plasma by ImmunoassayHepatitis C antibody Lab Routine Missed menses , unspecified gestational age ([facility]) Ordered: 11/18/2024[facility] HealthcareComment on above: Ordered: 11/18/2024HIV-1/HIV-2 antigen/antibody combination immunoassayHIV-1 and HIV-2 antibodies Lab Routine Missed menses , unspecified gestational age ([facility]) Ordered: 11/18/2024[facility] HealthcareComment on above:Ordered: 11/18/2024Neisseria gonorrhoeae DNA [Presence] in Unspecified specimen by GIOVANI with probe detectionNeisseria gonorrhea DNA probe, direct Lab Routine Second trimester fetus ([facility]) 17 weeks gestation of ([facility]) Ordered: 01/17/2025[facility] HealthcareComment on above:Ordered: 01/17/2025Reagin Ab [Presence] in Serum by RPRRPR Lab Routine Missed menses , unspecified gestational age ([facility]) Ordered: 11/18/2024[facility] HealthcareComment on above: Ordered: 11/18/2024Rubella antibody, IgGRubella antibody, IgG Lab Routine Missed menses , unspecified gestational age ([facility]) Ordered: 11/18/2024[facility] HealthcareComment on above:Ordered: 11/18/2024SURESWAB(R) ADVANCED VAGINITIS PLUS, TMASURESWAB(R) ADVANCED VAGINITIS PLUS, TMA Pathology and Cytology Routine Second trimester fetus ([facility]) 17 weeks gestation of ([facility]) Ordered: 01/17/2025[facility] HealthcareComment on above:Ordered: 01/17/2025 Payers DatePayer CategoryPayerPolicy [id number] Health InsuranceUNITED HEALTHCARE [place] [id number] Health [id number] [id number] [id number] [id number] [id number] 2.16.840.1.385261.3.57[id number] 2.16.840.1.147535.3.57[id number] 2.16.840.1.292137.3.57[id number] 2.16.840.1.857999.3.57[id number] 2.16.840.1.124006.3.57[id number]-qioZbgz Pay [id number] Social History DateTypeDetailFacilityStart: 08-04-2023 End: 18-55-7849Mtkvyvi smoking status NHISNever smoked tobacco (finding) [facility] 65-78-8418Mho Assigned At BirthFemale [facility]: 08-29-2024 End: 85-75-2430Gwxuzljgd beverage intakeCurrent drinker of alcohol (finding)[facility] HealthcareStart: 62-28-7124Eeuivuu of Social functionNOMS HealthcareStart: 03-29-2035Rwqkpmb use panelFulton Medical Center- FultonStart: 07-67-9821Kngvon identity Identifies as female gender (finding)[facility]Start: 57-98-1302Exejzl orientationHeterosexual (finding)[facility]onSttalala: 58-90-2381VvpbjprnrMKGP Healthcare Clinical Notes 11-18-2024 to 03-14-2025 Note Date & LrseJbwxQyvhczrj47-14-0202 History of Present illness Narrative* Ida Benítez NP - 03/14/2025 11:20 AM [...] nursing note reviewed. Exam conducted with a broadcast operations technician present. Vitals: Estimated body mass index is 21.67 kg/m as calculated from the following: Height as of 08/21/22: 5' 8 . Weight as of this encounter: 142 lb 8 oz. BP: 120/72 Patient's last menstrual period was 09/18/2024. ASSESSMENT & PLAN ICD-10-CM 1. Second trimester ([facility]) Z34.92 POCT urinalysis dipstick manually resulted 2. 25 weeks gestation of ([facility]) Z3A.25 3. Diabetes mellitus screening Z13.1 CBC [...] of: Ida Benítez NP documented in this encounterFulton Medical Center- FultonNrmpxuvmeq57-64-1432 History of Present illness Narrative* Imani Jensen LPN - 02/14/2025 10:40 AM EDT Reason for Appointment: Patient ID: [...] nursing note reviewed. Exam conducted with a broadcast operations technician present. Vitals: Estimated body mass index is 20.53 kg/m as calculated from the following: Height as of 08/21/22: 5' 8 . Weight as of this encounter: 135 lb. BP: 120/60 Patient's last menstrual period was 09/18/2024. ASSESSMENT & PLAN ICD-10-CM 1. 21 weeks gestation of ([facility]) Z3A.21 POCT urinalysis dipstick manually resulted 2. Second trimester fetus ([facility]) Z34.92 POCT urinalysis dipstick manually resulted Patient [...] of: Mariella Rose DO documented in this encounterFulton Medical Center- FultonGikccidlhq90-58-9152 History of Present illness Narrative* Imani Jensen LPN - 01/17/2025 10:20 AM EDT Reason for Appointment: Patient ID: [...] nursing note reviewed. Exam conducted with a broadcast operations technician present. Vitals: Estimated body mass index is 20.19 kg/m as calculated from the following: Height as of 08/21/22: 5' 8 . Weight as of this encounter: 132 lb 12.8 oz. BP: 126/74 Patient's last menstrual period was 09/18/2024. ASSESSMENT & PLAN ICD-10-CM 1. Second trimester fetus ([facility]) Z34.92 Alpha fetoprotein, maternal POCT urinalysis dipstick manually resulted Alpha fetoprotein, maternal SURESWAB(R) ADVANCED VAGINITIS PLUS, TMA CHLAMYDIA TRACHOMATIS (GENITO/STI) Neisseria gonorrhea DNA probe, direct US OB 14+ weeks anatomy scan 2. 17 weeks gestation of ([facility]) Z3A.17 Alpha fetoprotein, maternal POCT urinalysis dipstick manually resulted Alpha fetoprotein, maternal SURESWAB(R) ADVANCED VAGINITIS PLUS, TMA CHLAMYDIA TRACHOMATIS (GENITO/STI) Neisseria gonorrhea DNA probe, direct US OB 14+ weeks anatomy scan 3. Screening, , for anatomic survey ([facility]) Z36.89 US OB 14+ weeks anatomy scan [...] of: Mariella Rose DO documented in this encounterFulton Medical Center- FultonFebthozdiu91-70-8749 History of Present illness Narrative* Imani Jensen LPN - 12/20/2024 9:10 AM EDT Reason for Appointment: Patient ID: [...] nursing note reviewed. Exam conducted with a broadcast operations technician present. Vitals: Estimated body mass index is 19.69 kg/m as calculated from the following: Height as of 08/21/22: 5' 8 . Weight as of this encounter: 129 lb 8 oz. BP: 116/72 Patient's last menstrual period was 09/18/2024. ASSESSMENT & PLAN ICD-10-CM 1. Second trimester ([facility]) Z34.92 POCT urinalysis dipstick manually resulted 2. 13 weeks gestation of ([facility]) Z3A.13 New OB: Patient presents today for [...] or undercooked meat, and stay away from [facility]. Patient has been consulted regarding any further do's and don'tsof . Patient voiced understanding and all questions and concerns were answered. Pt is rubella non-immune. Pt to get vaccine after delviery. Orders Placed This Encounter Procedures POCT urinalysis dipstick manually resulted Follow Up: Patient is to return in 4 weeks for routine OB appointment. Documented by Imani Jensen LPN on behalf of: Mariella Rose DO documented in this encounterFulton Medical Center- FultonLwzgkwxhvm25-83-7508 History of Present illness Narrative* Francy Urbano MA - 11/18/2024 10:30 AM EDT Reason for Appointment: Patient ID: [...] dipstick manually resulted , unspecified gestational age ([facility]) - Type and screen; Future - ABO/Rh; Future - CBC and differential - Hemoglobin A1c - RPR - Rubella antibody, IgG - Hepatitis B surface antigen - Hepatitis C antibody - HIV-1 and HIV-2 antibodies - Rapid drug screen, urine; Future Encounter for supervision of normal first in first trimester ([facility]) - Rapid drug screen, urine; Future Nurse Note: Patient unsure of mSnap to one. Pt will call insurance. Pt is aware to take [facility] labs to [facility] to have done. Lab will not draw unless both [place] and labs are together. PVU. OB Intake: Patient presents today for first OB visit. Patients history has been reviewed in great detail including any potential risks. Patient signed consent forms and patient desires testing in both trimesters. Patient currently has no complaints and has been advised to drink 6-8 glasses of water a day, eatno raw or undercooked meat, and stay away from [facility]. Patient has also been advised to not change litter boxes and eat 6 small meals a day. Patient has been consulted regarding the do's and don'ts ofpregnancy. Patient was given labs and all questions [...] by: Francy Urbano MA documented in this encounterNOHI HealthcareEvaluation noteNo assessment information availableThe [facility] Work Phone: Evaluation note* Diagnosis Amenorrhea Absence of menstruation Missed menses , unspecified gestational age ([facility]) Encounter for supervision of normal first in first trimester ([facility]) documented in this encounter [facility] HealthcareEvaluation note* Diagnosis Second trimester ([facility]) state, incidental 13 weeks gestation of ([facility]) documented in this encounter [facility] HealthcareEvaluation note* Diagnosis Second trimester fetus ([facility]) 17 weeks gestation of ([facility]) Screening, , for anatomic survey ([facility]) Encounter for anatomic survey documented in this encounter [facility] HealthcareEvaluation note* Diagnosis 21 weeks gestation of ([facility]) Second trimester fetus ([facility]) documented in this encounter [facility] HealthcareEvaluation [facility]* Diagnosis Second trimester ([facility]) state, incidental 25 weeks gestation of ([facility]) Diabetes mellitus screening Screening for diabetes mellitus documented in this encounter [facility] Summary Purpose Family History No [...] section and content) DATE CREATED AUTHOR 06/30/2021 [facility] DATE CREATED AUTHOR AUTHOR'S ORGANIZ ATION 08/30/2022 [facility] DATE CREATED AUTHOR AUTHOR'S ORGANIZ ATION 03/16/2025 [facility] EPIC Care Teams (unrecognized sec tion and content) Team Status: Active Member Role Status Dates Murphy Harman MD Primary Care Provider Active Team Status: Inactive Member Role Status Dates Murphy Harman MD Primary Care Provider Active Start: October 05, 2023 End: October 05, 2023Parul Douglas ProviderActiveStart: October 05, 2023 End: October 05, 2023Team MemberRelationshipSpecialtyStart DateEnd Date Murphy Harman MD [address] [place] [address] PCP - GeneralFamily Medicine08/25/23Team MemberRelationshipSpecialtyStart DateEnd Date Murphy Harman MD [address] [place] [address] PCP - GeneralFami Medicine08/25/23Team MemberRelationshipSpecialtyStart DateEnd Date Murphy Harman MD [address] [place] [address] PCP - GeneralFamily Medicine08/25/23Team MemberRelationshipSpecialtyStart DateEnd Date Murphy Harman MD [address] [place] [address] PCP - GeneralFamily Medicine08/25/23Team MemberRelationshipSpecialtyStart DateEnd Date Murphy Harman MD [address] [place] [address] PCP - GeneralFamily Medicine08/25/23Team MemberRelationshipSpecialtyStart DateEnd Date Murphy Harman MD [address] [place] [address] PCP - GeneralFamily Medicine08/25/23Team MemberRelationshipSpecialtyStart DateEnd Date Murphy Harman MD [address] [place] [address] PCP - [facility]08/25/23Team MemberRelationshipSpecialtyStart DateEnd Date Murphy Harman MD [address] [place] [address] PCP - [facility]08/25/23 Goals (unrecognized section and content) Goals may be documented in a n alternate section Reason for Visit (unrecogniz ed section and content) ReasonCommentsAmenorrheaReasonCommentsRoutine Visit FOR RECORDS PERTAINING TO PATIENTS WHO [...] BE BASED ON THE PRIMARY CLINICAL RECORDS. [facility]. provides no warranty or guarantee of the accuracy or completeness of information in this document.
[2025-03-28 11:10] LABS: Cholesterol 254 mg/dL (<=200); Free T3 2.62 pg/mL (2.18-3.98); HDL Cholesterol 92 mg/dL (40-60); Thyroid Stimulating Hormone 0.862 uIU/mL (0.358-3.740); Triglycerides 142 mg/dL (<=150); VLDL CHOLESTEROL 28.4 mg/dL
== END 2025-03-28 10:03 | disposition home or self-care (01) ==
LOC: LAB 10:03
PROVIDERS: PCP Family Medicine; Visit Provider Family Medicine
DX: Z00.00 Encounter for general adult medical examination without abnormal findings (principal)
CPT/HCPCS: 36415; 80061; 83036; 84436; 84443; 84481

== ENCOUNTER 2025-05-30 20:50 | Outpatient (REF) | payer OTHER, SELFPAY ==
--- OUTSIDE RECORDS SUMMARY | 2025-05-16 09:20 | XMS_ITS | Encounter Summary ---
Author Organization [facility] Address [address] [place] [address] Care Team Providers Care Inhalation Therapy Aides Teacher Name Role Phone Murphy Harman MD Primary Care Provider [phone] Reason for Visit * ReasonCommentsRoutine Visit Encounter Details DateTypeDepartmentCare Team (Latest Contact Info)Zwaqobhaesy30/09/2025 9:20 AM ESTRoutine [facility] [address] [address] Monica Ernandez PA [address] [place] [address] Third trimester ([facility]); 34 weeks gestation of ([facility]) Social History Tobacco UseTypesPacks/DayYears UsedDateSmoking Tobacco: NeverAlcohol UseStandard Drinks/WeekCommentsYes0 (1 standard drink = 0.6 oz pure alcohol) Estimated Date of ZwyewqzcAfarahqsYqz76/18/2026Based on last menstrual period of 09/18/2024Sex and Gender InformationValueDate RecordedSex Assigned at BirthFemale 08/18/2023 8:42 AM EDTLegal CuyTgdkrd74/15/2023 7:31 PM EDTGender IdentityFemale 08/18/2023 8:42 AM EDTSexual BcstmvyvhdqMzwrepig59/12/2024 8:42 AM EDTdocumented as of this encounter Last Filed Vital Signs Vital SignReadingTime TakenCommentsBlood Cpkinwpb592/6012/02/2025 9:32 AM EST Pulse--Temperature--Respiratory Rate--Oxygen Saturation--Inhaled Oxygen Concentration--Rknvoz36.8 kg (156 lb)05/16/2025 9:32 AM ESTHeight--Body Mass Index23.72008/21/2022 12:00 PM EDTdocumented in this encounter Progress Notes * ALEJO Cortes - 05/16/2025 9:20 AM EST Reason for Appointment: Patient ID: Jessica Wilson [...] Exam Constitutional: Appearance: Normal appearance. She is normal weight. HENT: Head: Normocephalic. Cardiovascular: Rate and Rhythm: Normal rate. Pulses: Normal pulses. Pulmonary: Effort: Pulmonary effort is normal. Breath sounds: Normal breath sounds. Abdominal: Palpations: Abdomen is soft. Musculoskeletal: General: Normal range of motion. Neurological: General: No focal deficit present. Mental Status: She is alert and oriented to person, place, and time. Psychiatric: Mood and Affect: Mood normal. Behavior: Behavior normal. Thought Content: Thought content normal. Judgment: Judgment normal. Vitals and nursing note reviewed. Vitals: Estimated body mass index is 23.11 kg/m?? as calculated from the following: Height as of 08/21/22: 5' 8 . Weight as of 05/02/25: 152 lb. BP: Patient's last menstrual period was 09/18/2024. ASSESSMENT & PLAN ICD-10-CM 1. Third trimester ([facility]) Z34.93 2. 34 weeks gestation of ([facility]) Z3A.34 POCT urinalysis dipstick manually resulted Assessment/Plan Return OB: Patient presents today for a routine obstetrics appointment. Patient is currently 34w2d . Patient states she is doing well but has complaints of being tired due to current . Patient has verbalizes frequent movement. labor precautions was discussed/given and patient was instructed to perform kick counts three times a day. Orders Placed This Encounter Procedures POCT urinalysis dipstick manually resulted Follow Up: Patient is to return to office in 2 week for routine OB appointment. Documented by Zully Chavez CST on behalf of: ALEJO Cortes documented in this encounter Plan of Treatment DateTypeDepartmentCare Team (Latest Contact Info)Pchaitsnyes76/31/2025 9:30 AM ESTRoutine NOMBrendon MURPHY [address] [address] Ida Benítez, JENNIFER [address] [place] [address] 09/05/2025 8:30 AM EDTOffice Visit NOMBrendon MURPHY [address] [facility] [facility] [address] [address] Garcia Rose DO [address] [place], [place] [id number] documented as of this encounter Procedures Procedure NamePriorityDate/TimeAssociated DiagnosisCommentsPOCT URINALYSIS KOKHDRSYQhokohb12/09/2025 9:36 AM EST 34 weeks gestation of ([facility]) documented in this encounter Results * (ABNORMAL) POCT urinalysis dipstick manually resulted (05/16/2025 9:36 AM EST) ComponentValueRef RangeTest MethodAnalysis TimePerformed AtPathologist SignatureColor, UAYellowClarity, UAClearGlucose, UANegativeNegative - 2000(110) ++++ mg/dLBilirubin, UANegativeNegative - 4(70) +++ mg/dLKetones, UA NegativeNegative - 160(16) ++++ mg/dLSpec Grav, UA1.0101 - 1.03Blood, UA NegativeNegative - 50 Ankit/mcLpH, UA6.05 - 9Protein, UATraceNegative - 2000(20) ++++ mg/dLUrobilinogen, UA1.00.2 - 12 mg/dLLeukocytes, UA3+Negative - 500+++ Guy/mcLNitrite, UANegativeNegative - PositiveSpecimen (Source)Anatomical Location / LateralityCollection Method / VolumeCollection TimeReceived Time Urine05/16/2025 9:36 AM EST Narrative Authorizing ProviderResult TypeResult StatusSentara Obici Hospital TEST ENTER/EDIT ORDERABLESFinal Result documented in this encounter Visit Diagnoses Diagnosis Third trimester ([facility]) state, incidental 34 weeks gestation of ([facility]) documented in this encounter Care Teams Team MemberRelationshipSpecialtyStart DateEnd Date Murphy Harman MD [address] [place] [address] PCP - GeneralFamily Medicine08/25/23documented as of this encounter
--- OUTSIDE RECORDS SUMMARY | 2025-05-30 13:00 | XMS_ITS | Encounter Summary ---
Author Organization [facility] Address [address] [place] [address] Care Team Providers Care Cylinder Checker Name Role Phone Murphy Harman MD Primary Care Provider [phone] Encounter Details DateTypeDepartmentCare Team (Latest Contact Info)Szjiforarty35/23/2025 1:00 PM ESTRoutine [facility] [address] [place] [address] Garcia Rose DO [address] [place] [address] 36 weeks gestation of ([facility]); Third trimester ([facility]) Social History Tobacco UseTypesPacks/DayYears UsedDateSmoking Tobacco: NeverAlcohol UseStandard Drinks/WeekCommentsYes0 (1 standard drink = 0.6 oz pure alcohol) Estimated Date of GmjcawxrViktyjwjPwa37/18/2026ased on last menstrual period of 09/18/2024Sex and Gender InformationValueDate RecordedSex Assigned at BirthFemale 08/18/2023 8:42 AM EDTLegal FxeCvxuds48/15/2023 7:31 PM EDTGender IdentityFemale 08/18/2023 8:42 AM EDTSexual XyqpeikekspXrrqltbd04/12/2024 8:42 AM EDTdocumented as of this encounter Last Filed Vital Signs Vital SignReadingTime TakenCommentsBlood Rmgwmtvs229/7005/30/2025 1:15 PM EST Pulse--Temperature--Respiratory Rate--Oxygen Saturation--Inhaled Oxygen Concentration--Hgswze69.9 kg (160 lb 12.8 oz)05/30/2025 1:15 PM ESTHeight--Body Mass Index24.45008/21/2022 12:00 PM EDTdocumented in this encounter Progress Notes * Imani Jensen, INDUSTRIAL FURNACE FABRICATOR - 05/30/2025 1:00 PM EST Reason for Appointment: Patient ID: Jessica Wilson is a 24 y.o. female who presents for No chief complaint on file. Patient presents today for Return OB appointment. [...] nursing note reviewed. Exam conducted with a home school liaison officer present. Vitals: Estimated body mass index is 24.45 kg/m?? as calculated from the following: Height as of 08/21/22: 5' 8 . Weight as of this encounter: 160 lb 12.8 oz. BP: 120/70 Patient's last menstrual period was 09/18/2024. Assessment/Plan ICD-10-CM 1. 36 weeks gestation of ([facility]) Z3A.36 POCT urinalysis dipstick manually resulted 2. Third trimester ([facility]) Z34.93 POCT urinalysis dipstick manually resulted CULTURE, GROUP B STREP WITH SUSCEPTIBLITY CULTURE, GROUP B STREP WITH SUSCEPTIBLITY Assessment/Plan Patient is doing well but has complaints of being tired and having maternal discomfort due to . Patient verbalized frequent movement and was instructed to perform fetalkick counts three times per day. labor precautions were given, LARC consent was signed/declined, and GBS was obtained. Cervical check was performed and patient is 1cm dilated. Orders Placed This Encounter Procedures CULTURE, GROUP B STREP WITH SUSCEPTIBLITY POCT urinalysis dipstick manually resulted Follow Up: Patient is to return to office in 1 week for routine OB appointment Documented by Imani Jensen LPN on behalf of: Garcia Rose DO documented in this encounter Plan of Treatment DateTypeDepartmentCare Team (Latest Contact Info)Ixfqbnzrfbh39/31/2025 9:30 AM ESTRoutine [facility] [address] [place] [address] Ida Benítez, TEXTILE MACHINE OPERATOR [address] [place] [address] 09/05/2025 8:30 AM EDTOffice Visit [facility]OM[facility] [address] [place] [address] [place], Garcia, [address] [place] [address] NameTypePriorityAssociated DiagnosesOrder ScheduleCULTURE, GROUP B STREP WITH SUSCEPTIBLITYLabRoutine Third trimester ([facility]) Expected: 05/30/2025, Expires: 05/30/2026documented as of this encounter Procedures Procedure NamePriorityDate/TimeAssociated DiagnosisCommentsPOCT URINALYSIS KKNUHOZYPvtefez27/23/2025 1:25 PM EST 36 weeks gestation of ([facility]) Third trimester ([facility]) documented in this encounter Results * (ABNORMAL) POCT urinalysis dipstick manually resulted (05/30/2025 1:25 PM EST) ComponentValueRef RangeTest MethodAnalysis TimePerformed AtPathologist SignatureColor, UAColorlessClarity, UAClearGlucose, UANegativeNegative - 2000(110) ++++ mg/dLBilirubin, UANegativeNegative - 4(70) +++ mg/dLKetones, UA NegativeNegative - 160(16) ++++ mg/dLSpec Grav, UA1.0101 - 1.03Blood, UA NegativeNegative - 50 Ankit/mcLpH, UA6.05 - 9Protein, UANegativeNegative - 2000(20) ++++ mg/dLUrobilinogen, UA1.00.2 - 12 mg/dLLeukocytes, UA2+Negative - 500+++ Guy/mcLNitrite, UANegativeNegative - PositiveSpecimen (Source) Anatomical Location / LateralityCollection Method / VolumeCollection Time Received AskmIridr45/23/2025 1:25 PM EST Narrative Authorizing ProviderResult TypeResult StatusCorey Milton DOPOINT OF CARE TEST ENTER/EDIT ORDERABLESFinal Result documented in this encounter Visit Diagnoses Diagnosis 36 weeks gestation of ([facility]) Third trimester ([facility]) state, incidental documented in this encounter Care Teams Team MemberRelationshipSpecialtyStart DateEnd Date Murphy Harman MD [address] [place] [address] PCP - GeneralFamily Medicine08/25/23documented as of this encounter
--- OUTSIDE RECORDS SUMMARY | 2025-05-30 20:54 | XMS_ITS | Encounter Summary ---
Author Organization [facility] Address [address] [place] [address] Care Team Providers Care Supervisor Pole Yard Name Role Phone Murphy Harman MD Primary Care Provider [phone] Encounter Details DateTypeDepartmentCare Team (Latest Contact Info)Endsyvtzbup90/23/2025amboo flowsheet TROY MURPHY [address] [place] [phone] Garcia Rose DO [address] [place], [facility] Social History Tobacco UseTypesPacks/DayYears UsedDateSmoking Tobacco: NeverAlcohol UseStandard Drinks/WeekCommentsYes0 (1 standard drink = 0.6 oz pure alcohol) Estimated Date of OwhaokdvMjgmxmmhLls89/18/2026Based on last menstrual period of 09/18/2024Sex and Gender InformationValueDate RecordedSex Assigned at BirthFemale 08/18/2023 8:42 AM EDTLegal CjdBpiodr52/15/2023 7:31 PM EDTGender IdentityFemale 08/18/2023 8:42 AM EDTSexual JnfyolmbayvQmeqoult46/12/2024 8:42 AM EDTdocumented as of this encounter Plan of Treatment DateTypeDepartmentCare Team (Latest Contact Info)Igorhshnmev69/31/2025 9:30 AM ESTRoutine [facility] MUR[facility] [address] [place] [phone] Ida Benítez, ARMATURE CONNECTOR [address] [place] [address] 09/05/2025 8:30 AM EDTOffice Visit [facility] [facility] [address] [place] [address] Garcia Rose DO [address] [place], [place] [phone] documented as of this encounter Visit Diagnoses Not on filedocumented in this encounter Care Teams Team MemberRelationshipSpecialtyStart DateEnd Date Murphy Harman MD [address] [facility] [place] [address] PCP - GeneralFamily Medicine08/25/23documented as of this encounter
--- OUTSIDE RECORDS SUMMARY | 2025-05-30 20:54 | XMS_ITS | Encounter Summary ---
Author Organization [facility] Address [address] [place] [address] Care Team Providers Care Cold Rolling Supervisor Name Role Phone Murphy Harman MD Primary Care Provider [phone] Encounter Details DateTypeDepartmentCare Team (Latest Contact Info)Rndlxmqehvl92/09/2025amboo flowsheet TROY MURPHY [address] [place] [address] Monica Ernandez PA [address] [place], [place] [address] Social History Tobacco UseTypesPacks/DayYears UsedDateSmoking Tobacco: NeverAlcohol UseStandard Drinks/WeekCommentsYes0 (1 standard drink = 0.6 oz pure alcohol) Estimated Date of VolocsroXvxglzprHsr60/18/2026ased on last menstrual period of 09/18/2024Sex and Gender InformationValueDate RecordedSex Assigned at BirthFemale 08/18/2023 8:42 AM EDTLegal IdwWrnqzd83/15/2023 7:31 PM EDTGender IdentityFemale 08/18/2023 8:42 AM EDTSexual WbglhdfupgaRtowvlbu98/12/2024 8:42 AM EDTdocumented as of this encounter Plan of Treatment DateTypeDepartmentCare Team (Latest Contact Info)Akkjldwxuvv38/31/2025 9:30 AM ESTRoutine [facility] JULESGYShaun [address] [place] [phone] Ida Benítez, WANT AD RECEIVER [address] [place] [phone] 09/05/2025 8:30 AM EDTOffice Visit [facility] [address] [place] [address] Garcia Rose DO [address] [place], [place] [phone] documented as of this encounter Visit Diagnoses Not on filedocumented in this encounter Care Teams Team MemberRelationshipSpecialtyStart DateEnd Date Murphy Harman MD [address] [facility] [place] [address] PCP - GeneralFamily Medicine08/25/23documented as of this encounter
--- OUTSIDE RECORDS SUMMARY | 2025-05-30 20:54 | XMS_ITS | Clinical Summary ---
Author Organization [facility] Address [address] [place] [address] Care Team Providers Care Command And Control Specialist Name Role Phone Murphy Harman MD Primary Care Provider [phone] Allergies No known active allergies Medications MedicationSigDispense QuantityRefillsLast FilledStart DateEnd DateStatus MV-Min-Fe Fum-FA-DHA ( 1 PO) Active Encounters DateTypeDepartmentCare MhngTiwuiumgrrj67/23/2025 1:00 PM ESTRoutine [facility] MURPHY [address] [place] [address] Garcia Rose DO 36 weeks gestation of ([facility]); Third trimester ([facility])05/30/2025amboo flowsheet [facility] [address] [facility] [address] Garcia Rose DO 05/16/2025 9:20 AM ESTRoutine [facility]URPHY [address] [facility] [address] Monica Ernandez PA Third trimester ([facility]); 34 weeks gestation of ([facility])05/16/2025amboo flowsheet [facility] JULESGYN [address] [facility] [address] Monica Ernandez PA 05/02/2025 8:50 AM ESTRoutine [facility] [place] [facility] [address] [place] [address] Garcia Rose DO Third trimester ([facility]); 32 weeks gestation of ([facility])05/02/2025 8:00 AM ESTAncillary Procedure [facility] [address] [place] [address] size inconsistent with dates ([facility])04/17/2025 8:50 AM ESTRoutine [facility] [place] [facility] [address] [place] [address] Garcia Rose DO size inconsistent with dates ([facility]) (Primary Dx); Third trimester ([facility]); 30 weeks gestation of ([facility])04/17/2025[facility] flowsheet [facility] [address] [place] [address] Garcia Rose DO 04/04/2025 1:40 PM EDTRoutine [facility] [address] [place] [address] Monica Ernandez PA 28 weeks gestation of ([facility]); Second trimester ([facility])04/04/2025[facility] flowsheet [facility] [place] [facility] [address] [place] [address] Monica Ernandez PA 03/14/2025 11:20 AM EDTRoutine [facility] [place] [facility] [address] [place] [address] Ida Benítez NP Second trimester ([facility]); 25 weeks gestation of ([facility]); Diabetes mellitus ttzpxukfp35/07/2025amboo flowsheet [facility] [address] [place] [address] Ida Benítez NP from Last 3 Months Family History RelationNameStatusCommentsFatherAliveMotherAlive Social History Tobacco UseTypesPacks/DayYears UsedDateSmoking Tobacco: Never Tobacco Cessation:Counseling Given: Not Answered Alcohol UseStandard Drinks/WeekCommentsYes0 (1 standard drink = 0.6 oz pure alcohol)Estimated Date of KgrtlbwgRxzlbajzJjd05/18/2026ased on last menstrual period of 09/18/2024Sex and Gender InformationValueDate RecordedSex Assigned at ImvfzLcnlyp13/12/2024 8:42 AM EDTLegal EixIfbpmb21/15/2023 7:31 PM EDTGender QaqaboieOvgdyd90/12/2024 8:42 AM EDTSexual OrientationStraight 08/18/2023 8:42 AM EDT Last Filed Vital Signs Vital SignReadingTime TakenCommentsBlood Kedyrnou748/7005/30/2025 1:15 PM EST Pulse--Temperature--Respiratory Rate--Oxygen Saturation--Inhaled Oxygen Concentration--Wwrewp27.9 kg (160 lb 12.8 oz)05/30/2025 1:15 PM XPOTkrlmf426.7 cm (5' 8 )08/21/2022 12:00 PM EDTBody Mass Index24.45008/21/2022 12:00 PM EDT Plan of Treatment DateTypeDepartmentCare Team (Latest Contact Info)Rpruigatcrm13/31/2025 9:30 AM ESTRoutine NOMBrendon MURPHY [address] [place] [address] [place] [address] Ida Benítez, JENNIFER [address] [place] [address] 09/05/2025 8:30 AM EDTOffice Visit TROY MURPHY [address] [place] [address] Garcia Rose DO [address] [place] [address] Procedures Procedure NamePriorityDate/TimeAssociated DiagnosisCommentsPOCT URINALYSIS NTVFJLMIIqdlkjw63/23/2025 1:25 PM EST 36 weeks gestation of ([facility]) Third trimester ([facility]) POCT URINALYSIS FNFBXXVPHvngews58/09/2025 9:36 AM EST 34 weeks gestation of ([facility]) POCT URINALYSIS IMFFREGGIfnsajz27/25/2025 8:39 AM EST 32 weeks gestation of ([facility]) US OB FOLLOW UP TRANSABDOMINAL DKPFNAPWUkmjupg28/25/2025 8:23 AM EST size inconsistent with dates ([facility]) POCT URINALYSIS QJOLFXUHHgnsssz65/10/2025 8:52 AM EST Third trimester ([facility]) HFGWwpjfnz17/29/2025 2:07 PM EDT Diabetes mellitus screening POCT URINALYSIS RAXZPKABNrarjsv18/28/2025 1:51 PM EDT 28 weeks gestation of ([facility]) Second trimester ([facility]) POCT URINALYSIS JQDADUATHovnphi11/07/2025 11:35 AM EDT Second trimester ([facility]) from Last 3 Months Results * (ABNORMAL) POCT urinalysis dipstick manually resulted (05/30/2025 1:25 PM EST) Only the most recent of6 resultswithin the time period is included. ComponentValueRef RangeTest MethodAnalysis TimePerformed AtPathologist Signature Color, UAColorlessClarity, UAClearGlucose, UANegativeNegative - 2000(110) ++++ mg/dLBilirubin, UANegativeNegative - 4(70) +++ mg/dLKetones, UANegativeNegative - 160(16) ++++ mg/dLSpec Grav, UA1.0101 - 1.03Blood, UANegativeNegative - 50 Ankit/mcLpH, UA6.05 - 9Protein, UANegativeNegative - 2000(20) ++++ mg/dL Urobilinogen, UA1.00.2 - 12 mg/dLLeukocytes, UA2+Negative - 500+++ Guy/mcL Nitrite, UANegativeNegative - PositiveSpecimen (Source)Anatomical Location / LateralityCollection Method / VolumeCollection TimeReceived CxvxGquzz92/23/2025 1:25 PM EST Narrative Authorizing ProviderResult TypeResult StatusCorey Milton DOPOINT OF CARE TEST ENTER/EDIT ORDERABLESFinal Result * US OB follow up transabdominal approach (05/02/2025 8:23 AM EST)Anatomical RegionLateralityModalityBodyUltrasoundSpecimen (Source)Anatomical Location / LateralityCollection Method / VolumeCollection TimeReceived Time05/02/2025 4:21 PM EST Impressions 05/03/2025 8:09 AM EST Single, live intrauterine , current sonographic age of 32 weeks and 6 days, with an estimated date of delivery of June 21, 2025 (prior NADEEN June 26, 2025). * ??Estimated Weight (g) by Percentile is based upon an accurate estimated age based onlast menstrual period. ?? TRANSCRIBED BY: ? ELECTRONICALLY SIGNED BY: Anish Pantoja MD Narrative 05/03/2025 8:09 AM EST FINDINGS: Comparison February 14, 2025. A single, live intrauterine is present with normal cardiac rate of 153 beats per minute. Normal activity and amniotic fluid volume. Amniotic fluid index is 11.5 cm. ??Morphologyis grossly normal. The current sonographic age is 32 weeks and 6 days, based on the following measurements: ?BPD ? 7.9 cm (31 weeks, 6 days) ?Head Circumference ?29.8 cm (33 weeks, 0 days) ?Abdominal Circumference ?28.5 cm (32 weeks, 4 days) ?Femur Length ?6.6 cm (34 weeks, 1 days) ?Presentation ? Cephalic ? Weight (g) by Percentile ??62.3 % * (prior 45.3%) These measurements result in an estimated date of delivery of June 21, 2025. ?? The current estimated weight is 2092 grams (4 pounds, 10 ounces). ?? Procedure Note Anish Pantoja MD - 05/03/2025 FINDINGS: Comparison February 14, 2025. A single, live intrauterine is present with normal cardiacrate of 153 beats per minute. Normal activity and amniotic fluidvolume. Amniotic fluid index is 11.5 cm. Morphology is grossly normal.The current sonographic age is 32 weeks and 6 days, based on the followingmeasurements: BPD 7.9 cm (31 weeks, 6 days) Head Circumference 29.8 cm (33 weeks, 0 days) Abdominal Circumference 28.5 cm (32 weeks, 4 days) Femur Length 6.6 cm (34 weeks, 1 days) Presentation Cephalic Weight (g) by Percentile 62.3 % * (prior 45.3%) These measurements result in an estimated date of delivery of June. The current estimated weight is 2092 grams (4 pounds, 10ounces). IMPRESSION: Single, live intrauterine , current sonographic age of 32 weeksand 6 days, with an estimated date of delivery of June 21, 2025 (priorEDD June 26, 2025). * Estimated Weight (g) by Percentile is based upon an accurateestimated age based on last menstrual period. TRANSCRIBED BY: ELECTRONICALLY SIGNED BY: Anish Pantoja MD Authorizing ProviderResult TypeResult StatusIda ALVAREZG OB US PROCEDURESFinal Result * CBC (04/05/2025 2:07 PM EDT)Specimen (Source)Anatomical Location / Laterality Collection Method / VolumeCollection TimeReceived TimeBloodVenous blood specimen / Unknown Narrative Authorizing ProviderResult TypeResult StatusdIa Benítez NPLAB BLOOD ORDERABLESFinal ResultPerforming OrganizationAddressCity/State/ZIP CodePhone Number EXTERNAL LAB from Last 3 Months Insurance [place] [id number] Care Teams Team MemberRelationshipSpecialtyStart DateEnd Date Murphy Harman MD [address] [place] [phone] PCP - GeneralFamily Medicine08/25/23
--- OUTSIDE RECORDS SUMMARY | 2025-05-30 20:54 | XMS_ITS | Patient Health Record ---
Author Organization [facility] in [place] Address [address] [place] [address] Care Team Providers Care Metallurgical Engineering Technician Name Role Phone Markel Harman Primary Care Provider [phone] Allergies No Known Allergies Results Component Value Reference Range Notes CBC AUTO DIFF Reviewed date:12/10/2024 08:02:56 PM Interpretation: Performing Lab: Notes/Report: [facility] , White Blood Count 6.1 4.0-11.0 10 3/uL Red Blood Count4.154.20-5.40 10 6/bJPpupvrradr13.712.0-16.0 g/pHTgugeckbnw37.6 36.0-48.0 %Mean Corpuscular Vbdejv23.281.0-99.0 fLMean Corpuscular Hemoglobin 30.626.7-34.0 pgMean Corpuscular HGB Conc34.729.9-35.2 g/dLRed Cell Distribution Width12.711.0-15.0 %Platelet Kweoa657545-137 10 3/uLMean Platelet Volume8.89.5- 13.5 fLNeutrophils Percent Auto55.943.0-75.0 %Lymphocytes Percent Auto35.320.5- 60.0 %Monocytes Percent Auto6.91.7-12.0 %Eosinophils Percent Auto1.10.9-7.0 % Basophils Percent Auto0.50.2-2.0 %Immature Granulocytes Pct Auto0.30.0-0.5 % Neutrophils Absolute Auto3.41.4-6.5 10 3/uLLymphocytes Absolute Auto2.21.2-3.8 10 3/uLMonocytes Absolute Auto0.40.3-0.8 10 3/uLEosinophils Absolute Auto0.10.0- 0.7 10 3/uLBasophils Absolute Auto0.00.0-0.1 10 3/uLImmature Granulocytes Abs Auto0.020.00-0.03 10 3/uLPerforming Lab:see note - [facility] LB DRUG SCREEN RAPID (URINE) Reviewed date:12/10/2024 08:02:56 PM Interpretation: Performing Lab: Notes/Report: [facility] ,Cannabinoid Screen UrineNEGATIVENEGATIVEPhencyclidine Screen UrineNEGATIVE NEGATIVECocaine Screen [...] TCA (Trycyclic Antidepressants): 300 ng/mL Performing Lab:see note - [facility] LBGLYCOHEMOGLOBIN A1C Reviewed date:12/10/2024 08:02:56 PM Interpretation: Performing Lab: Notes/Report: [facility] ,Glycohemoglobin A1C5.14.5-6.2 % ADA RECOMMENDED LIMIT 4.0 - 6.0 ADA THERAPEUTIC TARGET < 7.0 ACTION SUGGESTED > 7.0 Estimated Average Mdoitjl525Qhprivblkg Lab:see note - [facility] LB Type and Screen Reviewed date:12/10/2024 08:02:56 PM Interpretation: Performing Lab: Notes/Report: [facility] ,Blood TypeO PositiveAntibody ScreenNEGATIVECBC AUTO DIFF Reviewed date:03/21/2025 02:19:25 PM Interpretation: Performing Lab: Notes/Report: [facility] ,White Blood Count6.34.0-11.0 10 3/uLRed Blood Count3.414.20-5.40 10 6/uL Gmwisypatt33.712.0-16.0 g/dUIgwujnuslt43.436.0-48.0 %Mean Corpuscular Ztmxbz80.1 81.0-99.0 fLMean Corpuscular Hzlihchzko37.426.7-34.0 pgMean Corpuscular HGB Conc 35.229.9-35.2 g/dLRed Cell Distribution Width12.911.0-15.0 %Platelet Vcamg548 150-450 10 3/uLMean Platelet Volume8.89.5-13.5 fLNeutrophils Percent Auto64.0 43.0-75.0 %Lymphocytes Percent Auto27.520.5-60.0 %Monocytes Percent Auto6.81.7- 12.0 %Eosinophils Percent Auto0.60.9-7.0 %Basophils Percent Auto0.50.2-2.0 % Immature Granulocytes Pct Auto0.60.0-0.5 %Neutrophils Absolute Auto4.11.4-6.5 10 3/uLLymphocytes Absolute Auto1.71.2-3.8 10 3/uLMonocytes Absolute Auto0.40.3-0.8 10 3/uLEosinophils Absolute Auto0.00.0-0.7 10 3/uLBasophils Absolute Auto0.00.0- 0.1 10 3/uLImmature Granulocytes Abs Auto0.040.00-0.03 10 3/uLPerforming Lab:see noteML - [facility] LBGlucose 1 Hour Reviewed date:03/21/2025 02:19:25 PM Interpretation: Performing Lab: Notes/Report: [facility] ,Glucose 1 Znwq619<130 mg/dLPerforming Lab:see noteML - [facility] LB FREE T3 Reviewed date:03/28/2025 07:05:47 PM Interpretation: Performing Lab: Notes/Report: [facility] ,Free T32.622.18-3.98 pg/mLPerforming Lab:see noteML - [facility] LB GLYCOHEMOGLOBIN A1C Reviewed date:03/28/2025 07:05:47 PM Interpretation: Performing Lab: Notes/Report: [facility] ,Glycohemoglobin A1C4.84.5-6.2 % ADA RECOMMENDED LIMIT 4.0 - 6.0 ADA THERAPEUTIC TARGET < 7.0 ACTION SUGGESTED > 7.0 Estimated Average Jtjwsgf59Imejqwybdq Lab:see noteML - [facility] LB LIPID PROFILE Reviewed date:03/28/2025 07:05:47 PM Interpretation: Performing Lab: Notes/Report: [facility] ,Ifkpijtyuzejr691<=150 mg/dSMulembhnhgy649<=200 mg/dLHDL Wwcrhtkkyuw2900-84 mg/dL > or =60 mg/dl - LOW CARDIOVASCULAR RISK <40 mg/dl - HIGH CARDIOVASCULAR RISK LDL Cholesterol Qrwpgciuut714.0 <100 mg/dl OPTIMAL 100-129 mg/dl NEAR OR ABOVE OPTIMAL 130-159 mg/dl BORDERLINE HIGH 160-189 mg/dl HIGH >190 mg/dl VERY HIGH VLDL HQJTDWFMCWS05.4Chol HDL Ratio2.8 3.3 - 4.4 LOW RISK 4.4 - 7.1 AVERAGE RISK 7.1 - 11.0 MODERATE RISK >11.0 HIGH RISK Performing Lab:see note - [facility] LBT4 Reviewed date:03/28/2025 07:05:47 PM Interpretation: Performing Lab: Notes/Report: [facility] ,T4 Nlpzfjdvv06.904.80-13.90 ug/dLPerforming Lab:see noteML - [facility] LBTSH Reviewed date:03/28/2025 07:05:47 PM Interpretation: Performing Lab: Notes/Report: [facility] ,Thyroid Stimulating Hormone0.8620.358-3.740 uIU/mLPerforming Lab:see note - [facility] LBHBsAg Screen Reviewed date:12/11/2024 01:43:27 PM Interpretation: Performing Lab: Notes/Report: [facility] ,HBsAg ScreenNegativeNegative Performed at: - [facility] [id number] Early Childhood Education Specialist: Jorge A Calderon PhD, Phone: [phone] [facility] LBHCV Antibody RFX to Quant PCR Reviewed date:12/11/2024 01:43:27 PM Interpretation: Performing Lab: Notes/Report: [facility] ,HCV AbNon ReactiveNon ReactiveInterpretation:Comment. Not infected with HCV unless early or acute infection is suspected (which may be delayed in an immunocompromised individual), or other evidence exists to indicate HCV infection. Performed at: [address] [id number] Early Childhood Education Specialist: Jorge A Calderon PhD, Phone: [phone] [facility]forming Lab[facility] LBRapid Plasma Reagin, Quant Reviewed date:12/11/2024 01:43:27 [...] utilized, such as Treponema pallidum (Syphilis) Screening [place] (986866) or Rapid Plasma Reagin (RPR) Test With Reflex to Quantitative RPR and Confirmatory Treponema pallidum Antibodies (568226). Performed at: [address] [id number] Early Childhood Education Specialist: Jorge A Calderon PhD, Phone: [phone] [facility]forming [facility] LBRUBELLA AB IGG Reviewed date:12/11/2024 01:43:27 PM Interpretation: Performing Lab: Notes/Report: [facility] ,Rubella Antibodies, IgG0.91Immune >0.99 index A second sample should be collected and tested no less than 2-4 weeks. Non-immune <0.90 Equivocal 0.90 - 0.99 Immune >0.99 Performed at: [address] [id number] Early Childhood Education Specialist: Jorge A Calderon PhD, Phone: [phone] Performing Lab:see noteLC - [facility] LBUrine Culture, Routine Reviewed date:12/12/2024 08:28:51 AM Interpretation: Performing Lab: Notes/Report: [facility] ,Urine Culture, RoutineSee Below For Report Urine Culture, Routine Urine Culture, RoutineNo growth Urine Culture, Routine Urine Culture, RoutinePerformed at: [facility] Urine Culture, Routine Urine Culture, [address] [place], [place] [id number] Urine Culture, Routine Urine Culture, RoutineLab Director: Jorge A Calderon PhD, Phone: [phone] Urine Culture, Routine Performing Lab:see note LC - [facility] LB SEE REPORT - Windows Phone Developer Id information not found for OBX-specific record producer legend HIV Ab/p24 Ag with Reflex Reviewed date:12/11/2024 01:43:27 PM Interpretation: Performing Lab: Notes/Report: [facility] ,HIV Ab/p24 Ag ScreenNon ReactiveNon Reactive HIV-1/HIV-2 antibodies and HIV-1 p24 antigen were NOT detected. There is no laboratory evidence of HIV infection. HIV Negative Performed at: [address] [id number] Early Childhood Education Specialist: Jorge A Calderon PhD, Phone: [phone] Performing Lab:see noteLC - [facility] LB Reason For Referral No Information Medications Medication SIG (Take, Route, Frequency, Duration) Notes Start Date End Date Status Prenat MH-Avp-Doghcuoojcqr-FA 0.6-0.4 MG 1 table t Orally Once [...] W/U Status Risk Notes Problem Well adult (646811531) Well adult (Z00.00 ) ActiveconfirmedProblemGastroenteritis (64712369)Gastroenteritis (K52.9)Active confirmed Vital Signs Blood pressure diastolic 78 mm Hg 03/28/2025 Djudsi67 in03/28/2025lood pressure dqrzwext752 mm Hg03/28/20256461Eliwjy889.0 lbs 03/28/2025BMI21.89 kg/m203/28/2025 Encounters Encounter Location Date Provider Diagnosis [facility] [address] [place] [address] 03/28/2025 Marekl Harman Well adult Z00.0 0 [facility] [address] [place] [address] 09/23/2024 Markel Kimani [facility] [place] [address] 03/28/2025Markel Harmna Assessments Encounter Date Diagnosis (ICD Code) Assessment [...] Insured Coverage Start Date Coverage End Date R [address] [place] [address] [id number] Amilcar Wilson - patient is the spouse of the insured Medical (General) History Surgical History Surgery Date(Month/Year) denies Hospitalization History Reason Date(Month/Year) denies
== END 2025-05-30 20:51 | disposition home or self-care (01) ==
LOC: LAB 20:50
PROVIDERS: PCP Family Medicine; Visit Provider Obstetrics & Gynecology
DX: Z34.93 Encounter for supervision of normal pregnancy, unspecified, third trimester (principal); Z3A.36 36 weeks gestation of pregnancy
CPT/HCPCS: 87081